=== PATIENT | female | born 1980 | race Caucasian/White ===

== ENCOUNTER 2023-02-10 21:07 | Outpatient (REF) | payer BC, SELFPAY ==
[2023-02-14 10:09] LABS: Age Gdln ACOG Testing Note (.); HPV Aptima Negative (Negative); IGP, Aptima HPV, rfx 16/18,45 Note (.)
== END 2023-02-10 21:08 | disposition home or self-care (01) ==
LOC: LAB 21:07
PROVIDERS: PCP Family Medicine; Visit Provider Obstetrics & Gynecology
DX: Z12.4 Encounter for screening for malignant neoplasm of cervix (principal); Z11.51 Encounter for screening for human papillomavirus (HPV)
CPT/HCPCS: 87624; G0145

== ENCOUNTER 2023-02-15 11:16 | Outpatient (OUT) | payer BC, SELFPAY ==
[2023-02-15 11:41] LABS: Basophils Percent Auto 0.3 % (0.2-2.0); Eosinophils Absolute Auto 0.2 10^3/uL (0.0-0.7); Eosinophils Percent Auto 2.8 % (0.9-7.0); Hematocrit 39.4 % (36.0-48.0); Hemoglobin 13.1 g/dL (12.0-16.0); Immature Granulocytes Abs Auto 0.01 10^3/uL (0.00-0.03); Immature Granulocytes Pct Auto 0.1 % (0.0-0.5); Lymphocytes Absolute Auto 2.6 10^3/uL (1.2-3.8); Lymphocytes Percent Auto 38.2 % (20.5-60.0); Mean Corpuscular HGB Conc 33.2 g/dL (29.9-35.2); Mean Corpuscular Hemoglobin 32.8 pg (26.7-34.0); Mean Corpuscular Volume 98.5 fL (81.0-99.0); Mean Platelet Volume 9.2 fL (9.5-13.5); Monocytes Absolute Auto 0.5 10^3/uL (0.3-0.8); Monocytes Percent Auto 6.8 % (1.7-12.0); Neutrophils Absolute Auto 3.5 10^3/uL (1.4-6.5); Neutrophils Percent Auto 51.8 % (43.0-75.0); Platelet Count 172 10^3/uL (150-450); Red Cell Distribution Width 12.1 % (11.0-15.0); White Blood Count 6.8 10^3/uL (4.0-11.0)
[2023-02-15 12:06] LABS: HCG Quantitative <1 mIU/mL; Thyroid Stimulating Hormone 2.737 uIU/mL (0.358-3.740)
[2023-02-15 12:15] LABS: Partial Thromboplastin Time 27.1 sec (22.3-36.2); Prothrombin Time 9.7 sec (9.0-11.6)
[2023-02-15 12:16] LABS: Estimated Average Glucose 105 mg/dL; Glycohemoglobin A1C 5.3 % (4.5-6.2)
[2023-02-15 12:22] LABS: Free T4 0.87 ng/dL (0.76-1.46)
[2023-02-15 12:43] LABS: INR <0.93
== END 2023-02-15 11:17 | disposition home or self-care (01) ==
LOC: LAB 11:16
PROVIDERS: PCP Family Medicine; Visit Provider Obstetrics & Gynecology
DX: N92.1 Excessive and frequent menstruation with irregular cycle (principal)
CPT/HCPCS: 36415; 83036; 84439; 84443; 84702; 85025; 85610; 85730

== ENCOUNTER 2023-02-24 14:47 | Outpatient (OUT) | payer BC, SELFPAY ==
--- NOTE | 2023-02-24 14:52 | US_ITS ---
The [address] [address] Patient Name: SALBADOR HUNT MRN: [id number] date: 1980 Sex: F Assigned Patient Location: US Current Patient Location: Accession/Order Number: [id number] Exam Date: 02/24/2023 15:05 Report Date: 02/24/2023 15:55 At the request of: JESSIE RODRIGUEZ Procedure: US pelvis w/ transvaginal EXAMINATION: US pelvis w/ transvaginal HISTORY: Menorrhagia With Irregular Cycle N92.1 ; pelvic pain for 6 months COMPARISON: No relevant comparison available. TECHNIQUE: Transabdominal and/or transvaginal sonographic examination was performed as indicated by examination type. FINDINGS: UTERUS: Normal size and appearance. Uterus size: 13.3 x 5.8 x 4.8 cm ENDOMETRIUM: Normal homogeneous appearance. Endometrial thickness: 10 mm RIGHT OVARY: Normal size and appearance. Duplex Doppler demonstrates normal waveform and flow; resistive index 0.6. Ovary size: 2.1 x 2.0 x 1.8 cm LEFT OVARY: Normal size and appearance. Duplex Doppler demonstrates normal waveform and flow; resistive index 0.5. Ovary size: 2.9 x 2.1 x 1.5 cm CUL-DE-SAC: Unremarkable. No significant free fluid. BLADDER: Unremarkable. OTHER: None. US/US pelvis w/ transvaginal IMPRESSION: 1. No abnormal or suspicious findings to account for patient's symptoms. Electronically authenticated by: BRIAN ORTIZ Date: 02/24/2023 15:55
== END 2023-02-24 14:48 | disposition home or self-care (01) ==
LOC: US 14:47
PROVIDERS: PCP Family Medicine; Visit Provider Obstetrics & Gynecology
DX: N92.1 Excessive and frequent menstruation with irregular cycle (principal)
CPT/HCPCS: 76830; 76856

== ENCOUNTER 2023-03-31 14:28 | Outpatient (OUT) | payer BC, SELFPAY | END 2023-03-31 14:29 | disposition home or self-care (01) | PROVIDERS: PCP Family Medicine; Visit Provider Obstetrics & Gynecology | DX: Z01.818 Encounter for other preprocedural examination (principal); N92.1 Excessive and frequent menstruation with irregular cycle; N93.9 Abnormal uterine and vaginal bleeding, unspecified; R10.2 Pelvic and perineal pain ==

== ENCOUNTER 2023-04-11 07:00 | Day surgery (SDC) | payer BC, SELFPAY ==
[2023-03-31 14:45] VITALS: BP 127/84; PULSE 74; RESP 18; TEMP 36.4; O2SAT 98; BMI 31.7
[2023-04-11 07:10] LABS: Basophils Percent Auto 0.3 % (0.2-2.0); Eosinophils Absolute Auto 0.2 10^3/uL (0.0-0.7); Eosinophils Percent Auto 3.2 % (0.9-7.0); Hematocrit 37.9 % (36.0-48.0); Hemoglobin 12.8 g/dL (12.0-16.0); Immature Granulocytes Abs Auto 0.02 10^3/uL (0.00-0.03); Immature Granulocytes Pct Auto 0.3 % (0.0-0.5); Lymphocytes Absolute Auto 2.3 10^3/uL (1.2-3.8); Lymphocytes Percent Auto 32.4 % (20.5-60.0); Mean Corpuscular HGB Conc 33.8 g/dL (29.9-35.2); Mean Corpuscular Hemoglobin 33.2 pg (26.7-34.0); Mean Corpuscular Volume 98.2 fL (81.0-99.0); Mean Platelet Volume 9.1 fL (9.5-13.5); Monocytes Absolute Auto 0.4 10^3/uL (0.3-0.8); Monocytes Percent Auto 5.8 % (1.7-12.0); Neutrophils Absolute Auto 4.2 10^3/uL (1.4-6.5); Platelet Count 188 10^3/uL (150-450); Red Blood Count 3.86 10^6/uL (4.20-5.40); Red Cell Distribution Width 11.8 % (11.0-15.0); White Blood Count 7.2 10^3/uL (4.0-11.0)
[2023-04-11 07:16] VITALS: BMI 30.9
[2023-04-11] MEDS: LACTATED RINGER'S SOLUTION 1,000 ML 50 ML IV (07:24)
[2023-04-11 07:28] LABS: HCG Quantitative <1 mIU/mL
--- NOTE | 2023-04-11 08:58 | PM.ONB ---
Brief Operative Note Date of procedure: 04/11/23 Pre-op diagnosis: menorrhagia Post-op diagnosis: same as pre-op Procedure: NAME OF PROCEDURE:[ beryl endometrial ablation with hysteroscopy] PROCEDURE: The patient was taken back to the OR where she was prepped and draped in the normal sterile fashion after being placed in the dorsal lithotomy position, after being placed under general anesthesia without difficulty. The anterior lip was grasped with a single tooth tenaculum. The patient was then gently sounds. The patient was gently sounded using Hegar dilators and the hysteroscope was passed through the cervix into the uterus where both ostia were seen. No gross evidence of polyps, fibroids or malignancy. A weighted speculum was placed in the patient?s vagina, the anterior tip of the cervix was identified and grasped with a single tooth tenaculum. The patient was gently sounded to roughly 10 cm. The cervical length was noted to be 5 cm. The Beryl ablation apparatus was set to approximately 5 in length. This was placed in through the cervix and into the uterus. After the seal was tested, at that time the total ablation of 120 seconds was performed with the Ebryl without difficulty. All instruments were removed from the vagina. Anesthesia: BARAK Surgeon: Khadar Hope Estimated blood loss (mL): 5 Pathology: none sent Condition: stable Disposition: PACU
[2023-04-11 09:04] VITALS: BP 140/93; PULSE 89; RESP 14; TEMP 36.6; O2SAT 98
[2023-04-11 09:34] VITALS: PULSE 70; RESP 19; O2SAT 97
[2023-04-11 09:35] VITALS: BP 132/82; PULSE 69; RESP 19; O2SAT 98
[2023-04-11 10:03] VITALS: BP 137/74; PULSE 63; RESP 16; O2SAT 96
== END 2023-04-11 10:04 | disposition home or self-care (01) ==
PROVIDERS: PCP Family Medicine; Visit Provider Obstetrics & Gynecology
PROC: (CPT 58563; principal; 2023-04-11 08:20)
DX: N92.1 Excessive and frequent menstruation with irregular cycle (principal); N93.9 Abnormal uterine and vaginal bleeding, unspecified; R10.2 Pelvic and perineal pain; F32.A Depression, unspecified; Z98.51 Tubal ligation status
CPT/HCPCS: 58563; 36415; 84702; 85025; J2704

== ENCOUNTER 2023-07-07 14:07 | Outpatient (OUT) | payer BC, SELFPAY ==
--- NOTE | 2023-07-07 14:39 | XR_ITS ---
The [address] [address] Patient Name: SALBADOR HUNT MRN: [id number] date: 1980 Sex: F Assigned Patient Location: [facility] Current Patient Location: [facility] Accession/Order Number: [id number] Exam Date: 07/07/2023 14:30 Report Date: 07/07/2023 16:11 At the request of: BENNETT VENTURA Procedure: XR chest 2V EXAM: XR chest 2V HISTORY: Acute Bronchiolitis J21.9 COMPARISON: None TECHNIQUE: PA and lateral views of the chest were obtained. FINDINGS: No definite acute fracture or dislocation is seen. No significant focal osseous or articular abnormalities are identified. No obvious pneumothorax. Mild apical pleural thickening bilaterally. Minimal degenerative changes in the dorsal spine. XR/XR chest 2V IMPRESSION: No acute process seen in the chest. Electronically authenticated by: MORRIS GALEANO Date: 07/07/2023 16:11
== END 2023-07-07 14:08 | disposition home or self-care (01) ==
LOC: RAD 14:08
PROVIDERS: PCP Family Medicine; Visit Provider Family Medicine
DX: J21.9 Acute bronchiolitis, unspecified (principal)
CPT/HCPCS: 71046

== ENCOUNTER 2024-11-23 10:45 | Outpatient (OUT) | payer BC, SELFPAY ==
[2024-11-23 11:14] LABS: Basophils Percent Auto 0.3 % (0.2-2.0); Eosinophils Absolute Auto 0.2 10^3/uL (0.0-0.7); Eosinophils Percent Auto 2.3 % (0.9-7.0); Hematocrit 42.6 % (36.0-48.0); Immature Granulocytes Abs Auto 0.01 10^3/uL (0.00-0.03); Immature Granulocytes Pct Auto 0.1 % (0.0-0.5); Lymphocytes Absolute Auto 1.9 10^3/uL (1.2-3.8); Lymphocytes Percent Auto 26.2 % (20.5-60.0); Mean Corpuscular HGB Conc 32.9 g/dL (29.9-35.2); Mean Corpuscular Hemoglobin 32.6 pg (26.7-34.0); Mean Corpuscular Volume 99.1 fL (81.0-99.0); Mean Platelet Volume 9.4 fL (9.5-13.5); Monocytes Absolute Auto 0.4 10^3/uL (0.3-0.8); Monocytes Percent Auto 5.1 % (1.7-12.0); Neutrophils Absolute Auto 4.9 10^3/uL (1.4-6.5); Platelet Count 207 10^3/uL (150-450); Red Cell Distribution Width 12.2 % (11.0-15.0); White Blood Count 7.4 10^3/uL (4.0-11.0)
[2024-11-23 11:28] LABS: INR 0.96; Partial Thromboplastin Time 25.9 sec (22.3-36.2); Prothrombin Time 10.2 sec (9.0-11.6)
[2024-11-23 11:36] LABS: Estimated Average Glucose 114 mg/dL; Glycohemoglobin A1C 5.6 % (4.5-6.2)
[2024-11-23 11:43] LABS: HCG Quantitative <1 mIU/mL; Thyroid Stimulating Hormone 3.037 uIU/mL (0.358-3.740)
[2024-11-23 11:51] LABS: Free T4 1.03 ng/dL (0.76-1.46)
== END 2024-11-23 10:46 | disposition home or self-care (01) ==
LOC: LAB 10:52
PROVIDERS: PCP Family Medicine; Visit Provider Obstetrics & Gynecology
DX: N92.0 Excessive and frequent menstruation with regular cycle (principal)
CPT/HCPCS: 36415; 83036; 84439; 84443; 84702; 85025; 85610; 85730

== ENCOUNTER 2024-12-11 08:59 | Outpatient (OUT) | payer BC, SELFPAY ==
--- OUTSIDE RECORDS SUMMARY | 2024-12-11 09:01 | XMS_ITS | CCD ---
Author Organization [facility] Care Team Providers Care Change Management Administrator Name Role Phone Jody Carey Unavailable ANGEL, DR HARVEY Lloyd Consulting Unavailable LARS ., CASEY Admitting Unavailable LARS ., CASEY Attending Unavailable HOY ., DR GUAJARDO Primary Care Unavailable LARS ., CASEY Consulting Unavailable HOY ., DR GUAJARDO Admitting Unavailable HOY ., DR GUAJARDO Attending Unavailable HOY ., DR GUAJARDO Consulting Unavailable HOY ., DR GUAJARDO Primary Care Unavailable HERMINIA ., DR ROMNA Admitting Unavailable HERMINIA ., DR ROMAN Attending Unavailable HOY ., DR GUAJARDO Consulting Unavailable HOY ., DR GUAJARDO Primary Care Unavailable HERMINIA ., DR ROMAN Consulting Unavailable ZIEBER, DR HARVEY Lloyd Consulting Unavailable KARASIK ., DR LOWERY Attending Unavailabl e KARASIK ., DR LOWERY Consulting Unavailabl e KARASIK ., DR LOWERY Admitting Unavailabl e HOY ., DR GUAJARDO Primary Care Unavailable HOY ., DR GUAJARDO Admitting Unavailable HOY ., DR GUAJARDO Attending Unavailable HOY ., DR GUAJARDO Consulting Unavailable HOY ., DR GUAJARDO Primary Care Unavailable Monoy Bennett PRESTON Primary Care Provider [phone] JESSIE HOPE Attending Unavailable Medications Current Medications Medication Drug Class(es) Dates Sig (Normalized) Sig (Original) [id number] 200 actuat albuterol 0.09 mg/actuat metered dose inhaler (4 sources) beta2-Adrenergic Agonist Start: 05-25-2024 take 2 puff(s) by mouth every four hours albuterol HFA 90 mcg/act inhaler INHALE 2 PUFFS BY MOUTH EVERY 4 HOURS FOR 14 DAYS 05/25/2024 Active Start: 05-25-2024 take 1 puff(s) by in halation every four hours Albuterol Sulfate Active 2 PUFF INHALATION Q4H 1 May 25, 2024 12:00am Azithromycin (1 source) Macrolide Antimicrobial Start: 05-25-2024 Azithromycin Active 0 PO .COMPLEX May 25, 2024 12:00am For 250 mg dose pack: take 500 mg today (day 1), then 250 mg for 4 days (days 2-5) PO benzonatate 100 mg oral capsule (1 source) Non-narcotic Antitussive Start: 05-25-2024 take 100 mg by mouth three times daily Benzonatate Active 100 MG PO Three times daily 21 May 25, 2024 12:00am methylPREDNISolone 4 mg oral tablet (1 source) Corticosteroid Start: 05-25-2024 take 1 tablet by mouth once Methylprednisolone (Medrol (Montrell)) 4 mg tablets,dose pack Active 0 PO per package directions May 25, 2024 12:00am PO PER PKG DIR for 6 days Completed/Discontinued Medications Medication Drug Class(es) Dates Sig (Normalized) Sig (Original) citalopram 10 mg oral tablet (2 sources) Serotonin Reuptake Inhibitor End: 11-17-2024 citalopram (CeleXA) 10 MG tablet 1 (one) time each day at the same time. 11/17/2024 Discontinued levoFLOXacin 500 mg oral tablet (2 sources) Quinolone Antimicrobial Start: 04-22-2022 End: 11-17-2024 take 1 tablet by mouth in the morning levoFLOXacin (Levaquin) 500 MG tablet Take 1 tablet by mouth in the morning. 04/22/2022 11/17/2024 Discontinued Problems Active Problems Problem Classification Problem Date Documented Date Episodic/Chronic Influenza (1 source) Influenza due to other identified influenza virus with other respiratory manifestations Episodic Menstrual disorders (6 sources) Menometrorrhagia; Translations: [Excessive and frequent menstruation with irregular cycle] 11-23-2024 Chronic Other endocrine disorders (2 sources) Disorder of endocrine system; Translations: [Endocrine disorder, unspecified] 11-23-2024 Episodic Unclassified (3 sources) CONTACT W/AND (SUSP) EXPOS COVID-19; Translations: [CONTACT W/AND (SUSP) EXPOS COVID-19] Onset: 04-23-2022 Past or Other Problems Problem Classification Problem Date Documented Date Episodic/Chronic Immunizations and screening for infectious disease (3 sources) Contact with and (suspected) exposure to other viral communicable diseases; Translations: [Encounter for screening for human papillomavirus (HPV)] Onset: 02-08-2022 Episodic Nonmalignant breast conditions (5 sources) Mastodynia; Translations: [MASTODYNIA] Onset: 08-29-2022 Episodic Other screening for suspected conditions (not mental disorders or infectious disease) (8 sources) Encounter for screening for malignant neoplasm of cervix; Translations: [Encounter for screening mammogram for malignant neoplasm of breast] Onset: 01-24-2022 Episodic Other upper respiratory infections (1 source) Acute recurrent frontal sinusitis; Translations: [ACUTE RECURRENT FRONTAL SINUSITIS] Onset: 04-23-2022 Episodic Residual codes; unclassified (1 source) Family history of malignant neoplasm of digestive organs; Translations: [FAM HX MALIG NEOPLASM DIGESTIV ORGN] Onset: 01-29-2022 Episodic Unclassified (1 source) CONTACT W/AND (SUSP) EXPOS COVID-19; Translations: [CONTACT W/AND (SUSP) EXPOS COVID-19] Onset: 04-22-2022 Viral infection (4 sources) Plantar wart of right foot; Translations: [Plantar wart] Onset: 02-05-2023 02-05-2023 Episodic Results Test Name Value Interpretation Reference Range Facility ALL CBC WITH AUTO DIFFon BASOPHILS ABSOLUTE AUTO 0 [facility] Basophils/100 WBC (Bld) 0.3 % 0.2 - 2.0 % [facility] Eosinophils/100 WBC (Bld) 2.3 % 0.9 - 7.0 % [facility] Erythrocyte distribution width (RBC) [Ratio] 12.2 % 11.0 - 15.0 % [facility] Hematocrit (Bld) [Volume fraction] 42.6 % 36.0 - 48.0 % [facility] Hem[facility] (Bld) [Mass/Vol] 14 g/dL 12.0 - 16.0 g/dL [facility] IMMATURE GRANULOCYTES ABS AUTO 0.01 [facility] Immature granulocytes/100 WBC (Bld) 0.1 % 0.0 - 0.5 % [facility] Interpretation and review of laboratory results Abnormal [facility] LYMPHOCYTES ABSOLUTE AUTO 1.9 [facility] Lymphocytes/100 WBC (Bld) 26.2 % 20.5 - 60.0 % [facility] MCH (RBC) [Entitic mass] 32.6 pg 26.7 - 34.0 pg [facility] MCHC (RBC) [Mass/Vol] 32.9 g/dL 29.9 - 35.2 g/dL [facility] MCV (RBC) [Entitic vol] 99.1 fL High 81.0 - 99.0 fL [facility] MONOCYTES ABSOLUTE AUTO 0.4 [facility] Monocytes/100 WBC (Bld) 5.1 % 1.7 - 12.0 % [facility] NEUTROPHILS ABSOLUTE AUTO 4.9 [facility] Neutrophils/100 WBC (Bld) 66 % 43.0 - 75.0 % [facility] Platelet mean volume (Bld) [Entitic vol] 9.4 fL Low 9.5 - 13.5 fL [facility] EO # 0.2 [facility] Health[facility] e TB PLT [address] [facility] e TB RBC 4.3 [facility] WBC 7.4 [facility] Urinalysis macro (dipstick) panel (U)on 11-23-2024 Bilirubin, UA Negative Negative - 4(70) +++ mg/dL [facility] Blood, UA Positive Negative - 50 Marvin/mcL [facility] Comment on above: moderate Clarity, UA Clear [facility] re Color, UA Yellow [facility] e Glucose, UA Negative Negative - 1999(110) ++++ mg/dL [facility] Interpretation and review of laboratory results Abnormal [facility] Ketones, UA Negative Negative - 160(16) ++++ mg/dL [facility] Leukocytes, UA Negative Negative - 500+++ Nilo/mcL [facility] Nitrite, UA Negative Negative - Positive [facility] pH, UA 5.5 5 - 9 [facility] e Protein, UA Trace Negative - 1999(20) ++++ mg/dL [facility] Spec Grav, UA 1.03 1 - 1.03 [facility] Urobilinogen, UA 0.2 0.2 - 12 mg/dL [facility] Cytology Cervical or vaginal smear or scraping studyOrdered By: Cathleen Dubon on 03-14-2023 [facility] Healthcar e CBC AUTO DIFFon 08-29-2022 BASO # 0.0 103/ul Normal 0.0-0.1 [facility] Comment on above: Performed By: #### C BC ####[facility] By[address] [place], [place] [address]Dr. Manuel Fair Basophils/100 WBC (Bld) 0.2 % Normal 0.2-2.0 [facility] Comment on above: Performed By: #### C BC ####[facility] [address] [place], [place] [address]Dr. Manuel Fair EO # 0.2 103/ul Normal 0.0-0.7 [facility] Comment on above: Performed By: #### C BC ####[facility] [address] [place], [place] [address]Dr. Manuel Fair Eosinophils/100 WBC (Bld) 2.9 % Normal 0.9-7.0 [facility] Comment on above: Performed By: #### C BC ####[facility] [address] [place], [place] [address]Dr. Manuel Fair Erythrocyte distribution width (RBC) [Ratio] 12.2 % Normal 11.0-15.0 [facility] Comment on above: Performed By: #### C BC ####[facility] [address] [place], [place] [address]Dr. Manuel Fair Hematocrit (Bld) [Volume fraction] 44.2 % Normal 36.0-48.0 [facility] Comment on above: Performed By: #### C BC ####[facility] [address] [place], [place] [address]Dr. Manuel Fair Hemoglobin (Bld) [Mass/Vol] 13.2 g/dL Normal 12.0-16.0 [facility] Comment on above: Performed By: #### C BC ####[facility] [address] [place], [place] [address]Dr. Manuel Fair IG # 0.01 10e3/ul Normal 0.00-0.03 [facility] Comment on above: Performed By: #### C BC ####[facility] [address] [place], [place] [address]DrAugustus Fair IG % 0.2 % Normal 0.0-0.5 [facility] Comment on above: Performed By: #### C BC ####[facility] [address] [place] [address]DrAugustus Fair LYMPH # 2.1 103/ul Normal 1.2-3.8 [facility] Comment on above: Performed By: #### C BC ####[facility] [address] [place] [address]DrAugustus Fair Lymphocytes/100 WBC (Bld) 33.7 % Normal 20.5-60.0 [facility] Comment on above: Performed By: #### C BC ####[facility] [address] [place], [place] [address]DrAugustus Fair MANUAL DIFF REQ NO Normal [facility] Comment on above: Performed By: #### C BC ####[facility] [address] [place], [place] [address]DrAugustus Fair MCH (RBC) [Entitic mass] 32.1 pg Normal 26.7-34.0 [facility] Comment on above: Performed By: #### C BC ####[facility] [address] [place], [place] [address]DrAugustus Fair MCHC (RBC) [Mass/Vol] 29.9 g/dL Normal 29.9-35.2 [facility] Comment on above: Performed By: #### C BC ####[facility] [address] [place], [place] [address]DrAugustus Fair MCV (RBC) [Entitic vol] 107.5 fL Critically high 81.0-99.0 [facility] Comment on above: Performed By: #### C BC ####[facility] [address] [place], [place] [id number] Fair MONO # 0.3 103/ul Normal 0.3-0.8 [facility] Comment on above: Performed By: #### C BC ####[facility] [address] [place], [place] [address]DrAugustus Fair Monocytes/100 WBC (Bld) 5.2 % Normal 1.7-12.0 [facility] Comment on above: Performed By: #### C BC ####[facility] [address] [place] [id number]. Manuel Fair NEUT # 3.5 103/ul Normal 1.4-6.5 [facility] Comment on above: Performed By: #### C BC ####[facility] [address] [place] [id number] Fair Neutrophils/100 WBC (Bld) 57.8 % Normal 43.0-75.0 [facility] Comment on above: Performed By: #### C BC ####[facility] [address] [place] [id number]. Manuel Fair Platelet mean volume (Bld) [Entitic vol] 9.8 fL Normal 9.5-13.5 [facility] Comment on above: Performed By: #### C BC ####[facility] [address] [place] [id number] Fair PLT 214 103/ul Normal 150-450 [facility] Comment on above: Performed By: #### C BC ####[facility] [address] [place] [id number]. Manuel Fair RBC 4.11 106/ul Critically low 4.20-5.40 [facility] Comment on above: Performed By: #### C BC ####[facility] [address] [place] [id number] Fair WBC 6.1 103/ul Normal 4.0-11.0 [facility] Comment on above: Performed By: #### C BC ####[facility] [address] [place] [id number]. Manuel Fair FREE THYROXINE INDEX T7on FTI 2.56 Normal 1.30-4.50 [facility] Comment on above: Performed By: #### T 7, TSH, LIPID, CMP #### [facility] [address], [place] [address] Dr. Manuel Fair T3U 36.0 % Normal 30.0-39.0 [facility] Comment on above: Performed By: #### T 7, TSH, LIPID, CMP #### [facility] [address] [place] [address] [address] Manuel Fair T4 [Mass/Vol] 7.10 ug/dL Normal 4.80-13.90 [facility] Comment on above: Performed By: #### T 7, TSH, LIPID, CMP #### [facility] [address] [place] [address] [address] Manuel Fair GLYCOHEMOGLOBIN A1Con 2022 ADA RECOMMENDATION SEE BELOW Normal [facility] Comment on above: Result Comment: ADA RECOMMENDED LIMIT 4.0 - 6.0 ADA THERAPEUTIC TARGET < 7.0 ACTION SUGGESTED > 7.0 Performed By: #### A 1C #### [facility] [address] [place] [address] Dr. Manuel Fair Glucose [Mass/Vol] 111 mg/dL Normal [facility] Comment on above: Performed By: #### A 1C #### [facility] [address] [place] [address] Dr. Manuel Fair HbA1c (Bld) [Mass fraction] 5.5 % Normal 4.5-6.2 [facility] Comment on above: Performed By: #### A 1C #### [facility] [address] [place] [address] Dr. Manuel Fair LIPID PROFILEon 08-29-2022 CHOL-HDL RATIO NORM SEE BELOW Normal [facility] Comment on above: Result Comment: 3.3 - 4.4 LOW RISK 4.4 - 7.1 AVERAGE RISK 7.1 - 11.0 MODERATE RISK >11.0 HIGH RISK Performed By: #### T 7, TSH, LIPID, CMP #### [facility] [address] [place] [address] Dr. Manuel Fair Cholesterol [Mass/Vol] 183 mg/dL Normal <=200 [facility] Comment on above: Performed By: #### T 7, TSH, LIPID, CMP #### [facility] [address] [place] [address] Dr. Manuel Fair Cholesterol in HDL [Mass/Vol] 44 mg/dL Normal 40-60 [facility] Comment on above: Performed By: #### T 7, TSH, LIPID, CMP #### [facility] [address] [place] [address] [address] Manuel Fair Cholesterol in LDL [Mass/Vol] 111.2 mg/dL Normal [facility] Comment on above: Performed By: #### T 7, TSH, LIPID, CMP #### [facility] [address] [place] [address] [address] Manuel Fair Cholesterol.total/Ch olesterol in HDL [Mass ratio] 4.2 {ratio} Normal [facility] Comment on above: Performed By: #### T 7, TSH, LIPID, CMP #### [facility] [address] [place] [address] Dr. Manuel Fair HDL NORMAL > or = 60 mg/dl - LOW CARDIOVASCULAR RISK <40 mg/dl - HIGH CARDIOVASCULAR RISK Normal [facility] Comment on above: Performed By: #### T 7, TSH, LIPID, CMP #### [facility] [address] [place] [address] Dr. Manuel Fair LDL CALC NORMAL SEE BELOW Normal [facility] Comment on above: Result Comment: <100 mg/dl OPTIMAL 100 - 129 mg/dl NEAR OR ABOVE OPTIMAL 130 - 159 mg/dl BORDERLINE HIGH 160 - 189 mg/dl HIGH >190 mg/dl VERY HIGH Performed By: #### T 7, TSH, LIPID, CMP #### [facility] [address] [place] [address] [address] Manuel Fair Triglyceride [Mass/Vol] 139 mg/dL Normal <=150 [facility] Comment on above: Performed By: #### T 7, TSH, LIPID, CMP #### [facility] [address] [place] [address] Dr. Manuel Fair VLDL CALC 27.8 mg/dL Normal [facility] Comment on above: Performed By: #### T 7, TSH, LIPID, CMP #### [facility] [address] [place] [address] Dr. Manuel Fair MG MAMM [place] DIAG W CADon MG MAMM [place] DIAG W CAD Patient: KEYLA KEITH Exam Date: 08/29/2022 : 1980 Gender:F Ordering : PRERNA SOUSA . Admission #: [id number] Family : DR JESSIE HOPE . Order #: [id number] CLICK HERE TO VIEW EXAM RADIOLOGY REPORT PROCEDURE: MAMMOGRAM BILATERAL DIAGNOSTIC DIGITAL WITH COMPUTER AIDED DETECTION, 08/29/2022, 09:22 ULTRASOUND BREAST LEFT LIMITED, 08/29/2022, 09:58 COMPARISON: MG MAMM SCREEN 3D [place] CAD, 01/24/2022. INDICATIONS: Pain of breast Calculator Name NCI Breast Cancer Risk Assessment Tool 5 Year Breast Cancer Risk 0.80% Lifetime Breast Cancer Risk 13.60% Personal Breast Cancer No Personal Ovarian Cancer No Treatments None Family Cancers Mother with colon cancer at age 62. LOCATION: [facility] BREAST COMPOSITION: Heterogeneously dense,which may obscure small masses. FINDINGS: DIAGNOSTIC CATEGORY 2--BENIGN FINDING: RIGHT BREAST: No significant suspicious finding. No significant change has occurred. LEFT BREAST: No significant suspicious finding. Scattered benign-appearing lymph nodes are present. No significant change has occurred. Ultrasound evaluation demonstrates normal appearing fibroglandular tissue in area of patient's palpable lump. No suspicious findings. RECOMMENDATIONS: ROUTINE MAMMOGRAM AND CLINICAL EVALUATION IN 12 MONTHS. PLEASE NOTE: A NORMAL MAMMOGRAM DOES NOT EXCLUDE THE POSSIBILITY OF BREAST CANCER. A CLINICALLY SUSPICIOUS PALPABLE LUMP SHOULD BE BIOPSIED. Dictated by: Harvey Marte M.D. on 08/29/2022 at 10:17 Approved by: Harvey Marte M.D. on 08/29/2022 at 10:34 Normal [facility] PROF 14(COMP METB)on 023 Albumin [Mass/Vol] 3.7 g/dL Normal 3.4-5.0 [facility] Comment on above: Performed By: #### T 7, TSH, LIPID, CMP #### [facility] [address] [place] [address] [address] Manuel Fair Albumin/Globulin [Mass ratio] 1.1 {ratio} Normal [facility] Comment on above: Performed By: #### T 7, TSH, LIPID, CMP #### [facility] [address] [place] [address] [address] Manuel Fair ALP [Catalytic activity/Vol] 73 U/L Normal 46-116 [facility] Comment on above: Performed By: #### T 7, TSH, LIPID, CMP #### [facility] [address] [place] [address] [address] Manuel Fair ALT [Catalytic activity/Vol] 21 U/L Normal 14-59 [facility] Comment on above: Performed By: #### T 7, TSH, LIPID, CMP #### [facility] [address] [place] [address] [address] Manuel Fair Anion gap [Moles/Vol] 11.1 mmol/L Normal [facility] Comment on above: Performed By: #### T 7, TSH, LIPID, CMP #### [facility] [address] [place] [address] Dr. Manuel Fair AST [Catalytic activity/Vol] 15 U/L Normal 15-37 [facility] Comment on above: Performed By: #### T 7, TSH, LIPID, CMP #### [facility] [address] [place] [address] [address] Manuel Fair Bilirubin [Mass/Vol] 0.4 mg/dL Normal 0.2-1.0 [facility] Comment on above: Performed By: #### T 7, TSH, LIPID, CMP #### [facility] [address] [place] [address] Dr. Manuel Fair Calcium [Mass/Vol] 8.9 mg/dL Normal 8.5-10.1 [facility] Comment on above: Performed By: #### T 7, TSH, LIPID, CMP #### [facility] [address] [place] [address] Dr. Manuel Fair Chloride [Moles/Vol] 103 mmol/L Normal 98-107 [facility] Comment on above: Performed By: #### T 7, TSH, LIPID, CMP #### [facility] [address] [place] [address] Dr. Manuel Fair CO2 [Moles/Vol] 29.8 mmol/L Normal 21.0-32.0 [facility] Comment on above: Performed By: #### T 7, TSH, LIPID, CMP #### [facility] [address] [place] [address] [address] Manuel Fair Creatinine [Mass/Vol] 0.60 mg/dL Normal 0.55-1.02 [facility] Comment on above: Performed By: #### T 7, TSH, LIPID, CMP #### [facility] [address] [place] [address] Dr. Manuel Fair EGFR-AF TAIWANESE >60 Normal >=[address] [facility] Comment on above: Performed By: #### T 7, TSH, LIPID, CMP #### [facility] [address] [place] [address] Dr. Manuel Fair EGFR-NON AF TAIWANESE >60 Normal >=60 [facility] Comment on above: Performed By: #### T 7, TSH, LIPID, CMP #### [facility] [address] [place] [address] Dr. Manuel Fair Globulin (S) [Mass/Vol] 3.3 g/dL Normal [facility] Comment on above: Performed By: #### T 7, TSH, LIPID, CMP #### [facility] [address] [place] [address] Dr. Manuel Fair Glucose [Mass/Vol] 91 mg/dL Normal 74-106 [facility] Comment on above: Performed By: #### T 7, TSH, LIPID, CMP #### [facility] [address] [place] [address] Dr. Manuel Fair Potassium [Moles/Vol] 3.9 mmol/L Normal 3.5-5.1 [facility] Comment on above: Performed By: #### T 7, TSH, LIPID, CMP #### [facility] [address] [place] [address] Dr. Manuel Fair Protein [Mass/Vol] 7.0 g/dL Normal 6.4-8.2 [facility] Comment on above: Performed By: #### T 7, TSH, LIPID, CMP #### [facility] [address] [place] [address] Dr. Manuel Fair Sodium [Moles/Vol] 140 mmol/L Normal 136-145 [facility] Comment on above: Performed By: #### T 7, TSH, LIPID, CMP #### [facility] [address] [address] [address] Manuel Fair Urea nitrogen [Mass/Vol] 9.0 mg/dL Normal 7.0-18.0 [facility] Comment on above: Performed By: #### T 7, TSH, LIPID, CMP #### [facility] [address] [place] [address] [address] Manuel Fair Urea nitrogen/Creatinine [Mass ratio] 15.0 mg/mg Normal [facility] Comment on above: Performed By: #### T 7, TSH, LIPID, CMP #### [facility] [address] [place] [address] [address] Manuel Fair TSHon 08-29-2022 TSH 2.065 uIU/mL Normal 0.358-3.740 [facility] Comment on above: Performed By: #### T 7, TSH, LIPID, CMP #### [facility] [address] [place] [address] [address] Manuel Fair US BREAST LEFT LIMITEDon US BREAST LEFT LIMITED Patient: KEYLA KEITH Exam Date: 08/29/2022 : 1980 Gender:F Ordering : PRERNA SOUSA . Admission #: [id number] Family : DR JESSIE HOPE . Order #: [id number] CLICK HERE TO VIEW EXAM RADIOLOGY REPORT PROCEDURE: MAMMOGRAM BILATERAL DIAGNOSTIC DIGITAL WITH COMPUTER AIDED DETECTION, 08/29/2022, 09:22 ULTRASOUND BREAST LEFT LIMITED, 08/29/2022, 09:58 COMPARISON: MG MAMM SCREEN 3D [place] CAD, 01/24/2022. INDICATIONS: Pain of breast Calculator Name NCI Breast Cancer Risk Assessment Tool 5 Year Breast Cancer Risk 0.80% Lifetime Breast Cancer Risk 13.60% Personal Breast Cancer No Personal Ovarian Cancer No Treatments None Family Cancers Mother with colon cancer at age 62. LOCATION: [facility] BREAST COMPOSITION: Heterogeneously dense,which may obscure small masses. FINDINGS: DIAGNOSTIC CATEGORY 2--BENIGN FINDING: RIGHT BREAST: No significant suspicious finding. No significant change has occurred. LEFT BREAST: No significant suspicious finding. Scattered benign-appearing lymph nodes are present. No significant change has occurred. Ultrasound evaluation demonstrates normal appearing fibroglandular tissue in area of patient's palpable lump. No suspicious findings. RECOMMENDATIONS: ROUTINE MAMMOGRAM AND CLINICAL EVALUATION IN 12 MONTHS. PLEASE NOTE: A NORMAL MAMMOGRAM DOES NOT EXCLUDE THE POSSIBILITY OF BREAST CANCER. A CLINICALLY SUSPICIOUS PALPABLE LUMP SHOULD BE BIOPSIED. Dictated by: Harvey Marte M.D. on 08/29/2022 at 10:17 Approved by: Harvey Marte M.D. on 08/29/2022 at 10:34 Normal [facility] COVID/FLU/RSV RT-PCRon 07-31 SARS-CoV-2 (COVID-19) RNA WAYNE+probe Ql (Unsp spec) Negative [facility] Other COVID/FLU/RSV RT-PCR Positive [facility] Other COVID/FLU/RSV RT-PCR Negative [facility] Other [facility]on 04[facility]04 SARS-CoV-2 (COVID-19) RNA WAYNE+probe Ql (Unsp spec) Not detected Normal NOT DETECTED [facility] Comment on above: Result Comment: This test is not yet approved or cleared by the [place] FDA. When there are no FDA-approved or cleared tests available, and other criteria are met, FDA can make tests available under an emergency access mechanism called an Emergency Use Authorization (EUA). The EUA for this test is supported by the [place] of Health and Human Service's (HHS's) declaration that circumstances exist to justify the emergency use of in vitro diagnostics for the detection and/or diagnosis of the virus that causes COVID-19. This EUA will remain in effect (meaning this test can be used) for the duration of the COVID-19 declaration justifying emergency of IVDs, unless it is terminated or revoked by FDA (after which the test may no longer be used). When diagnostic testing is negative, the possibility of a false negative should be considered in the context of a patient's recent exposures and the presence of clinical signs and symptoms consistent with SARS-CoV-2. Performed By: #### C VDTBH #### [facility] [address] [place] [address] Dr. Manuel Fair PAP ACOG PANEL 2: 30 to 65on 02-09-2022 . . Normal [facility] Comment on above: Result Comment: Perf ormed at: WB Performed By: #### [id number] #### [facility] [address] [place] [address] Dr. Manuel Fair Age Gdln ACOG Testing 30-65 [facility] Comment on above: Performed By: #### [id number] #### [facility] [address] [place] [address] Dr. Manuel Fair DIAGNOSIS: Comment Normal [facility] Comment on above: Result Comment: NEGA TIVE FOR INTRAEPITHELIAL LESION OR MALIGNANCY. Performed at: WB Performed By: #### [id number] #### [facility] [address] [place] [address] Dr. Manuel Fair HPV Aptima Negative Normal Negative [facility] Comment on above: Result Comment: This nucleic acid amplification test detects fourteen high-risk HPV types (16,18,31,33,35,39,45,51,52,56,58,59,66,68) without differentiation. Performed at: =G Performed By: #### [id number] #### [facility] [address] [place] [address] Dr. Manuel Fair Methodology: Comment [facility] Comment on above: Result Comment: This liquid based ThinPrep(R) pap test was screened with the use of an image guided system. Performed at: WB Performed By: #### [id number] #### [facility] [address] [place] [address] Dr. Manuel Fair Note: Comment [facility] Comment on above: Result Comment: The Pap smear is a screening test designed to aid in the detection of premalignant and malignant conditions of the uterine cervix. It is not a diagnostic procedure and should not be used as the sole means of detecting cervical cancer. Both false-positive and false-negative reports do occur. . Performed at: WB Performed By: #### [id number] #### [facility] [address] [address] [address] Manuel Fair Performed by: Comment Normal [facility] Comment on above: Result Comment: Michael Armendariz, Brine Mixer Operator (ASCP) Performed at: WB Performed By: #### [id number] #### [facility] [address] [address] [address] Manuel Fair Specimen adequacy: Comment Normal [facility] Comment on above: Result Comment: Sati sfactory for evaluation. No endocervical component is identified. Performed at: WB Performed By: #### [id number] #### [facility] [address] [place] [address] Dr. Manuel Fair MG MAMM SCREEN 3D [place] CADon 01-24-2022 MG MAMM SCREEN 3D [place] CAD Patient: KEYLA KEITH Exam Date: 01/24/2022 : 1980 Gender:F Ordering : DR JESSIE HOPE . Admission #: [id number] Family : DR BENNETT DUQUE . Order #: [id number] CLICK HERE TO VIEW EXAM RADIOLOGY REPORT PROCEDURE: MAMMOGRAM SCREENING 3D BILATERAL CAD COMPARISON: None. INDICATIONS: Screening mammography Calculator Name NCI Breast Cancer Risk Assessment Tool 5 Year Breast Cancer Risk 0.80% Lifetime Breast Cancer Risk 13.60% Personal Breast Cancer No Personal Ovarian Cancer No Treatments None Family Cancers Mother with colon cancer at age 62. LOCATION: [facility] BREAST COMPOSITION: Heterogeneously dense,which may obscure small masses. FINDINGS: DIAGNOSTIC CATEGORY 2--BENIGN FINDING: RIGHT BREAST: No significant suspicious finding. LEFT BREAST: No significant suspicious finding. Scattered benign-appearing lymph nodes are present. RECOMMENDATIONS: ROUTINE MAMMOGRAM AND CLINICAL EVALUATION IN 12 MONTHS. PLEASE NOTE: A NORMAL MAMMOGRAM DOES NOT EXCLUDE THE POSSIBILITY OF BREAST CANCER. A CLINICALLY SUSPICIOUS PALPABLE LUMP SHOULD BE BIOPSIED. Dictated by: Harvey Marte M.D. on 01/25/2022 at 13:54 Approved by: Harvey Marte M.D. on 01/25/2022 at 13:56 [facility] Vital Signs Date Time Vital Sign Value Performing Clinician Facility 11-23-2024 09:31-0400 Body mass index (BMI) [Ratio] 32.11 kg/m2 Jessie Herminia DO Work Phone: [facility] 11-23-2024 09:31-0400 Body weight 92.99 kg Jessie Herminia DO Work Phone: [facility] 11-23-2024 09:31-0400 Diastolic blood pressure 78 mm[Hg] Jessie Herminia DO Work Phone: [facility] 11-23-2024 09:31-0400 Systolic blood pressure 122 mm[Hg] Jessie Herminia DO Work Phone: [facility] 05-25-2024 11:52-0400 Body height 170.[address] [facility] 05-25-2024 11:52-0400 Body mass index (BMI) [Ratio] 32.4 kg/m2 [facility] 05-25-2024 11:52-0400 Body temperature 97.5 [degF] [facility] 05-25-2024 11:52-0400 Body weight 93.[address] [facility] 05-25-2024 11:52-0400 Diastolic blood pressure 83 mm[Hg] [facility] 05-25-2024 11:52-0400 Heart rate 91 /min [facility] 05-25-2024 11:52-0400 Respiratory rate 18 /min [facility] 05-25-2024 11:52-0400 SaO2% (BldA) [Mass fraction] 98 % [facility] 05-25-2024 11:52-0400 Systolic blood pressure 134 mm[Hg] [facility] 07-31-2022 12:15-0500 Body height 167.64 cm Jody Carey Other [facility] Other 07-31-2022 12:15-0500 Body mass index (BMI) [Ratio] 32.28 kg/m2 Jody Carey Other [facility] Other 07-31-2022 12:15-0500 Body temperature 97.3 [degF] Jody Carey Other [facility] Other 07-31-2022 12:15-0500 Body weight 90.72 kg Jody Carey Other [facility] Other 07-31-2022 12:15-0500 Respiratory rate 18 /min Jody Carey Other [facility] Other 07-31-2022 12:15-0500 SaO2% (BldA) [Mass fraction] 98 % Jody Carey Other [facility] Other Encounters Encounter Date Encounter Type Care Provider Facility Start: 11-23-2024 End: 11-23-2024 Bamboo flowsheet Jessie Herminia DO Work Phone: [facility] Start: 11-23-2024 End: 11-23-2024 Bamboo flowsheet Jessie Herminia DO Work Phone: [facility] Start: 11-23-2024 End: 11-23-2024 Clinisync Result Encounter Jessie Herminia DO Work Phone: [facility] External Department Unsolicited Start: 11-23-2024 End: 11-23-2024 Office outpatient visit 15 minutes Jessie Herminia DO Work Phone: [facility] Comment on above: Menorrhagia with irr egular cycle; Spotting; Hormone imbalance; Menorrhagia with regular cycle Start: 11-23-2024 End: 11-23-2024 ambulatory JESSIE HERMINIA Not Available Start: 05-25-2024 End: 05-25-[address] [facility] Work Phone: Start: 05-25-2024 End: 05-25-2024 Patient encounter procedure [facility] Work Phone: Start: 08-30-2022 Encounter for genera l adult medical examination without abnormal findings DR BENNETT DUQUE . [facility] Start: 08-29-2022 End: 08-30-[address] HARVEY MARTE Facility:[facility] Start: 08-29-2022 End: 08-30-2022 Encounter for general adult medical examination without abnormal findings DR BENNETT DUQUE . Facility:[facility] Start: 07-31-2022 End: 07-31-2022 ambulatory Jody Carey Other [place] [employer] Other Start: 07-31-2022 Office outpatient ne w 30 minutes Jody Carey [facility] Start: 04-22-2022 End: 04-22-[address] BENNETT DUQUE . Facility: Start: 02-05-2022 End: 02-05-[address] SEBASTIÁN FRIAS . Facility: Start: 01-24-2022 End: 01-25-[address] JESSIE HOPE . Facility: Procedures Date Procedure Procedure Detail Performing Clinician Start: 11-23-2024 ALL CBC WITH AUTO DIFF eJssie Hope DO Work Phone: Start: 11-23-2024 Urnls dip stick/tabl et rgnt non-auto w/o micrscp Jessie Hope DO Work Phone: Start: 03-14-2023 Cytp cerv/vag auto t hin layer prep mnl screen Jessie Hope DO Work Phone: Plan of Treatment Date Care Activity Detail Author Start: 02-01-2025 End: 02-01-2025 Patient encounter procedure 02/01/2025 1:30 PM EDT Procedure Visit [facility] [address] [place] [address] Jessie Hope, DO [address] [place] [address] [facility] Start: 01-04-2025 End: 01-04-2025 Patient encounter procedure 01/04/2025 1:20 PM EDT Office Visit [facility] [address] [place] [address] Jessie Hope, [address] [place] [address] [facility] Start: 11-23-2024 End: 11-23-2025 aPTT in Blood by Coagulation assay APTT Lab Routine Menorrhagia with regular cycle Expected: 11/23/2024 (Approximate), Expires: 11/23/2025 [facility] Comment on above: Expected: 11/23/2024 (Approximate), Expires: 11/23/2025 Start: 11-23-2024 End: 11-23-2025 US Pelvis US Pelvis w/ TV Imaging Routine Menorrhagia with irregular cycle Menorrhagia with regular cycle Expected: 11/23/2024, Expires: 11/23/2025 [facility] Comment on above: Expected: 11/23/2024 , Expires: 11/23/2025 Start: 11-23-2024 End: 11-23-2024 Patient encounter procedure 11/23/2024 9:30 AM EDT Office Visit [facility] [address] [place] [address] Jessie Hope, [address] [place] [address] Arrived [facility] Comment on above: Arrived CBC W Auto Different ial panel - Blood CBC and differential Lab Routine Menorrhagia with regular cycle Ordered: 11/23/2024 [facility] Work Phone: Comment on above: Ordered: 11/23/2024 hCG, quantitative, hCG, quantitative, Lab Routine Menorrhagia with regular cycle Ordered: 11/23/2024 [facility] Comment on above: Ordered: 11/23/2024 Hemoglobin A1c/Hemoglobin.total in Blood Hemoglobin A1c Lab Routine Menorrhagia with regular cycle Ordered: 11/23/2024 [facility] Comment on above: Ordered: 11/23/2024 Prothrombin time (PT ) in Blood by Coagulation assay Protime-INR Lab Routine Menorrhagia with regular cycle Ordered: 11/23/2024 [facility] Comment on above: Ordered: 11/23/2024 Thyrotropin [Units/volume] in Serum or Plasma TSH Lab Routine Menorrhagia with regular cycle Ordered: 11/23/2024 [facility] Comment on above: Ordered: 11/23/2024 Thyroxine (T4) free [Mass/volume] in Serum or Plasma T4, free Lab Routine Menorrhagia with regular cycle Ordered: 11/23/2024 [facility] Comment on above: Ordered: 11/23/2024 Payers Date Payer Category Payer [facility] [id number] 1980 Unknown [id number] 1980 Unknown [id number] 1980 Unknown [id number] 1980 Unknown [id number] 1980 Unknown [id number] 1980 Unknown [id number] [facility] [place] [id number] 1958 Unknown [id number] Social History Date Type Detail Facility Start: 03-24-2023 End: 11-23-2024 Sex Assigned At [facility] [email or web address] Other Start: 07-31-2022 Tobacco smoking stat [facility] Smoker (finding) [facility] Start: 1980 Sex Assigned At Female [facility] Start: 02-06-2023 Tobacco smoking stat [facility] Smokes tobacco daily [facility] History of tobacco use Cigarette Smoker [facility] Start: 03-24-2023 End: 11-23-2024 Alcoholic beverage intake Current drinker of alcohol (finding) [facility] Start: 03-24-2023 End: 11-23-2024 History of Social function [facility] Start: 02-06-2023 Tobacco Comment Patient smokes 6-10 cigarettes/day after 6-30 minutes of waking up. [facility] Start: 02-06-2023 Alcohol Comment monthly or less [facility] Start: 02-03-2023 Gender identity Identifies as female gender (finding) [facility] History of Present illness Narrative 11-23-2024 Yari Faria LPN - 11/23/2024 9:30 AM EDT Note Date & Type Note Facility 11-23-2024 History of Presen t illness Narrative Reason for Appointment: Patient ID: Keyla Keith is a 44 y.o. female who presents for Menorrhagia (Pt present today for menorrhagia and irregular bleeding. Pt has had 2 periods in September and then 10/24/2024-10/28/2024 heavy bleeding. 11/03/2024-11/08/2024 heavy bleeding and again started bleeding on 11/15/24-11/18/2024 another heavy period. ) Patient presents today for Acute Visit. and Consult appointment. MEDICATIONS Current Outpatient Medications Medication Instructions albuterol HFA 90 mcg/act inhaler INHALE 2 PUFFS BY MOUTH EVERY 4 HOURS FOR 14 DAYS ALLERGIES No Known Allergies PROBLEMS Active Ambulatory Problems Diagnosis Date Noted Plantar wart of right foot 02/05/2023 Resolved Ambulatory Problems Diagnosis Date Noted No Resolved Ambulatory Problems Past Medical History: Diagnosis Date Breast cancer screening 01/24/2022 Depressive disorder (CMS/HCC) H/O: section HISTORY PAST MEDICAL HISTORY SOCIAL HISTORY Past Medical History: Diagnosis Date Breast cancer screening 01/24/2022 neg Depressive disorder (CMS/HCC) not elsewhere classified H/O: section x2 Social History Tobacco Use Smoking status: Every Day Types: Cigarettes Smokeless tobacco: Not on file Tobacco comments: Patient smokes 6-10 cigarettes/day after 6-30 minutes of waking up. Substance Use Topics Alcohol use: Yes Comment: monthly or less Drug use: Never FAMILY HISTORY Family History Problem Relation Name Age of Onset Mental illness Father Prostate cancer Maternal Grandfather Cancer Paternal Grandfather SURGICAL HISTORY Past Surgical History: Procedure Laterality Date SECTION, CLASSIC x2 ENDOMETRIAL ABLATION 2023 HM MAMMOGRAPHY 01/24/2022 negative PAP SMEAR 02/05/2022 negative TUBAL LIGATION Bilateral 2016 REVIEW OF SYSTEMS Review of Systems: Review of Systems Constitutional: Negative. HENT: Negative. Eyes: Negative. Respiratory: Negative. Cardiovascular: Negative. Gastrointestinal: Negative. Genitourinary: Negative. Musculoskeletal: Negative. Skin: Negative. Neurological: Negative. All other systems reviewed and are negative. Hematological: Negative. Endocrine: Negative. Allergic/Immunologic: Negative. OBJECTIVE Objective: Physical Exam Constitutional: Appearance: Normal appearance. She is well-developed. Cardiovascular: Rate and Rhythm: Normal rate and regular rhythm. Pulmonary: Effort: Pulmonary effort is normal. Breath sounds: Normal breath sounds. Abdominal: General: Bowel sounds are normal. There is no distension. Palpations: Abdomen is soft. Tenderness: There is no abdominal tenderness. There is no guarding or rebound. Musculoskeletal: General: No swelling. Normal range of motion. Right lower leg: No edema. Left lower leg: No edema. Neurological: Mental Status: She is alert and oriented to person, place, and time. Skin: General: Skin is warm and dry. Psychiatric: Mood and Affect: Mood normal. Behavior: Behavior normal. Vitals and nursing note reviewed. Exam conducted with a associate chief nurse present. Vitals: Estimated body mass index is 32.11 kg/m as calculated from the following: Height as of 02/10/23: 5' 7 . Weight as of this encounter: 205 lb. BP: 122/78 Patient's last menstrual period was 11/18/2024 (approximate). ASSESSMENT & PLAN ICD-10-CM 1. Menorrhagia with irregular cycle N92.1 POCT urinalysis dipstick manually resulted 2. Spotting N92.0 POCT urinalysis dipstick manually resulted 3. Hormone imbalance E34.9 Pt presents with heavy bleeding irregular. Pt had ablation in 2022- pt given labs and ultrasound orders to have obtained. Pt desires surgical management at this time. Pt to be scheduled for Hysterectomy. Documented by Yari Faria LPN on behalf of: Jessie Hope DO documented in this encounter [facility] Evaluation note 07-31-2022 Note Date & Type Note Facility 07-31-2022 Evaluation note Encounter Date Diagnosis Assessment Notes Jul, Contact with and (suspected) exposure to other viral communicable diseases (ICD-10 - Z20.828) Jul, Influenza A (ICD-10 - J10.1) Advised patient that Influenza A PCR test was positive, COVID/Influenz a B/RSV test negative. Patient out of window for Tamiflu. Encouraged supportive care, OTC cold medications, Tylenol/Motrin as needed for body aches/fever, increase fluids and rest, use of cool mist humidifier. Follow-up with PCP to advise of positive result and further management need. Advised to stay home from work/activitie s until fever free for 24 hours without use of antipyretic. Immediate eval if respiratory distress, SOB, difficulty breathing, severe headache and neck pain/stiffness , rash, abdominal pain, N/V, poor PO intake, dehydration, lethargy, or if any new or concerning symptoms arise. Patient verbalizes understanding and is agreeable to treatment plan. Patient left in stable condition [employer] Other Evaluation note Note Date & Type Note Facility Evaluation note [facility] Evaluation note Note Date & Type Note Facility Evaluation note Diagnosis Menorrhagia with irregular cycle Spotting Other specified noninflammatory disorder of vagina Hormone imbalance Menorrhagia with regular cycle documented in this encounter [facility] History general Narrative - Reported Note Date & Type Note Facility History general Narrative - Reported Type Surgical History C section Hospitalization History see above [employer] Other Summary Purpose Family History No Family History Records FoundNo Family History Records Found Advance Directives No Advanced Directives Records Found Advance Directive Response Recorded Date/ Time Advance Directives No May 25, 2024 11:11am Chief Complaint and Reason for Visit Chief Complaint headache cough conge stion Additional Source Comments REASON FOR VISIT (unrecogniz ed section and content) Reason Comments Menorrhagia Pt present today for menorrhagia and irregular bleeding. Pt has had 2 periods in September and then 10/24/2024-10/28/2024 heavy bleeding. 11/03/2024-11/08/2024 heavy bleeding and again started bleeding on 11/15/24-11/18/2024 another heavy period. INFORMATION SOURCE (unrecogn ized section and content) DATE CREATED AUTHOR 12/10/2022 [facility] DATE CREATED AUTHOR AUTHOR'S ORGANIZ ATION 11/24/2024 [facility] EPIC Care Teams (unrecognized sec tion and content) Team Status: Active Member Role Status Dates Bennett Duque MD Primary Care Provider Active Team Status: Inactive Member Role Status Dates Bennett Duque MD Primary Care Provider Active Start: May 25, 2024 End: May 25, 2024 Jody Carey APRN Attending Provider Active Start: May 25, 2024 End: May 25, 2024 Change Management Administrator Relationship Specialty Start Date End Date Bennett Duque MD [address] [place] [address] PCP - General Family Medicine 02/10/23 Change Management Administrator Relationship Specialty Start Date End Date Bennett Duque MD [address] [place] [address] PCP - General Family Medicine 02/10/23 Change Management Administrator Relationship Specialty Start Date End Date Bennett Duque MD [address] [place] [address] PCP - General Family Medicine 02/10/23 Goals (unrecognized section and content) Goals may be documented in a n alternate section FOR RECORDS PERTAINING TO PATIENTS WHO ARE OR HAVE BEEN ENROLLED IN A CHEMICAL DEPENDENCY/SUBSTANCEABUSE PROGRAM, SOME INFORMATION MAY BE OMITTED. This clinical summary was aggregated from multiple sources. Caution should be exercised in using it in the provision of clinical care. This summary normalizes information from multiple sources, and as a consequence, information in this document may materially change the coding, format and clinical context of patient data. In addition, data may be omitted in some cases. CLINICAL DECISIONS SHOULD BE BASED ON THE PRIMARY CLINICAL RECORDS. [employer] provides no warranty or guarantee of the accuracy or completeness of information in this document.
--- NOTE | 2024-12-11 09:02 | US_ITS ---
The [address] [address] Patient Name: SALBADOR HUNT MRN: [id number] date: 1980 Sex: F Assigned Patient Location: Current Patient Location: Accession/Order Number: [id number] Exam Date: 12/13/2024 09:53 Report Date: 12/13/2024 09:58 At the request of: JESSIE RODRIGUEZ DO Procedure: US pelvis w/ transvaginal ULTRASOUND PELVIS WITH TRANSVAGINAL IMAGING COMPARISON: 02/24/2023 CLINICAL DATA: Menorrhagia with irregular cycle. Previous and uterine ablation. Real-time ultrasound evaluation pelvis was performed utilizing both transabdominal and transvaginal approach. TRANSABDOMINAL: The urinary bladder is not fully distended. The uterus is prominent measuring 12.5 x 5.1 x 5.5 cm in size. The endometrial lining is estimated at 6 - 7 mm. A hypoechoic nodular area seen at the fundus posteriorly measuring 3.3 x 3.1 x 3.5 cm. This may be a fibroid. The right ovary is identified however the left is not seen. The right ovary measures 1.7 x 1.9 x 2.0 cm. There are no adnexal cysts. There is documentation of ovarian blood flow. TRANSVAGINAL: Transvaginal imaging is suboptimal due to the overall uterine size. There are tiny suspected nabothian cysts. The endometrial lining is not well demonstrated. The ovaries are also poorly seen. There is no free fluid. US/US pelvis w/ transvaginal IMPRESSION: PROMINENT UTERUS WITH SUSPECTED FUNDAL FIBROID. NONVISUALIZATION OF THE LEFT OVARY. UNREMARKABLE RIGHT OVARY. Impression dictated by: Yari Gupta M.D. 12/13/2024 9:58 AM Dictation Location: [place] [address] Electronically authenticated by: [id number] Y Date: 12/13/2024 09:58
== END 2024-12-11 09:00 | disposition home or self-care (01) ==
LOC: US 08:59
PROVIDERS: PCP Family Medicine; Visit Provider Obstetrics & Gynecology
DX: N92.1 Excessive and frequent menstruation with irregular cycle (principal)
CPT/HCPCS: 76830; 76856

== ENCOUNTER 2025-01-04 20:09 | Outpatient (REF) | payer BC, SELFPAY ==
--- OUTSIDE RECORDS SUMMARY | 2025-01-04 20:16 | XMS_ITS | CCD ---
Author Organization [facility] CliniSyms Care Team Providers Care Medical Staff Director Name Role Phone Jody Carey Unavailable ANGEL, DR HARVEY Lloyd Consulting Unavailable LARS ., CASEY Admitting Unavailable LARS ., CASEY Attending Unavailable HOY ., DR GUAJARDO Primary Care Unavailable LARS ., CASEY Consulting Unavailable HOY ., DR GUAJARDO Admitting Unavailable HOY ., DR GUAJARDO Attending Unavailable HOY ., DR GUAJARDO Consulting Unavailable HOY ., DR GUAJARDO Primary Care Unavailable HERMINIA ., DR ROMAN Admitting Unavailable HERMINIA ., DR ROMAN Attending [...] HOY ., DR GUAJARDO Primary Care Unavailable Bennett Duque MD Primary Care Provider [phone] JESSIE HOPE Attending Unavailable Bennett Duque MD Primary Care Provider [phone] Bennett Duque MD Primary Care Provider [phone] Medications Current Medications Medication Drug Class(es) Dates Sig (Normalized) Sig (Original) [id number] 200 actuat albuterol 0.09 mg/actuat metered dose inhaler (6 sources) beta2-Adrenergic Agonist Start: 05-25-2024 take 2 [...] (SUSP) EXPOS COVID-19] Onset: 04-22-2022 Viral infection (6 sources) Plantar wart of right foot; Translations: [Plantar wart] Onset: 02-05-2023 02-05-2023 Episodic Results Test Name Value Interpretation Reference Range Facility US PELVIS W/ TRANSVAGINALon 12-13-2024 [place] [address] Ultrasound Report Signed Patient: KEYLA KEITH MR#: [id number] : 1980 Acct:[id number] Age/Sex: 44 / F ADM Date: 12/11/24 Loc: US Attending Dr: Jessie Hope D.O. Ordering Physician: Jessie Hope D.O. Date of Service: 12/11/24 Procedure(s): US pelvis w/ transvaginal Accession Number(s): [id number] cc: Jessie Hope D.O.; Bennett Duque M.D. [address] [address] Patient Name: KEYLA KEITH MRN: [facility]:[id number] date: 1980 Sex: F Assigned Patient Location: Current Patient Location: Accession/Order Number: [id number] Exam Date: 12/13/2024 09:53 Report Date: 12/13/2024 09:58 At the request of: JESSIE HOPE DO Procedure: US pelvis w/ transvaginal ULTRASOUND PELVIS WITH TRANSVAGINAL IMAGING COMPARISON: 02/24/2023 CLINICAL DATA: Menorrhagia with irregular cycle. Previous and uterine ablation. Real-time ultrasound evaluation pelvis was performed utilizing both transabdominal and transvaginal approach. TRANSABDOMINAL: The urinary bladder is not fully distended. The uterus is prominent measuring 12.5 x 5.1 x 5.5 cm in size. The endometrial lining is estimated at 6 - 7 mm. A hypoechoic nodular area seen at the fundus posteriorly measuring 3.3 x 3.1 x 3.5 cm. This may be a fibroid. The right ovary is identified however the left is not seen. The right ovary measures 1.7 x 1.9 x 2.0 cm. There are no adnexal cysts. There is documentation of ovarian blood flow. TRANSVAGINAL: Transvaginal imaging is suboptimal due to the overall uterine size. There are tiny suspected nabothian cysts. The endometrial lining is not well demonstrated. The ovaries are also poorly seen. There is no free fluid. US/US pelvis w/ transvaginal IMPRESSION: PROMINENT UTERUS WITH SUSPECTED FUNDAL FIBROID. NONVISUALIZATION OF THE LEFT OVARY. UNREMARKABLE RIGHT OVARY. Impression dictated by: Yari Gupta M.D. 12/13/2024 9:58 AM Dictation Location: [place] [address] Electronically authenticated by: [id number] Y Date: 12/13/2024 09:58 Dictated By: Yari Gupta M.D. Signed By: 12/13/24 1001 DD/ 0958 TD/TT: Medicine Aide: [facility] Radiology, Radiologist, - 12/13/[address] [address] Ultrasound Report Signed Patient: KEYLA KEITH MR#: [id number] : 1980 Acct:[id number] Age/Sex: 44 / F ADM Date: 12/11/24 Loc: US Attending Dr: Jessie Hope D.O. Ordering Physician: Jessie Hope D.O. Date of Service: 12/11/24 Procedure(s): US pelvis w/ transvaginal Accession Number(s): [id number] cc: Jessie Hope D.O.; Bennett Duque M.D. [place] [id number] Patient Name: KEYLA KEITH MRN: [id number] date: 1980 Sex: F Assigned Patient Location: US Current Patient Location: Accession/Order Number: [id number] Exam Date: 12/13/2024 09:53 Report Date: 12/13/2024 09:58 At the request of: JESSIE HOPE DO Procedure: US pelvis w/ transvaginal ULTRASOUND PELVIS WITH TRANSVAGINAL IMAGING COMPARISON: 02/24/2023 CLINICAL DATA: Menorrhagia with irregular cycle. Previous and uterine ablation. Real-time ultrasound evaluation pelvis was performed utilizing both transabdominal and transvaginal approach. TRANSABDOMINAL: The urinary bladder is not fully distended. The uterus is prominent measuring 12.5 x 5.1 x 5.5 cm in size. The endometrial lining is estimated at 6 - 7 mm. A hypoechoic nodular area seen at the fundus posteriorly measuring 3.3 x 3.1 x 3.5 cm. This may be a fibroid. The right ovary is identified however the left is not seen. The right ovary measures 1.7 x 1.9 x 2.0 cm. There are no adnexal cysts. There is documentation of ovarian blood flow. TRANSVAGINAL: Transvaginal imaging is suboptimal due to the overall uterine size. There are tiny suspected nabothian cysts. The endometrial lining is not well demonstrated. The ovaries are also poorly seen. There is no free fluid. US/US pelvis w/ transvaginal IMPRESSION: PROMINENT UTERUS WITH SUSPECTED FUNDAL FIBROID. NONVISUALIZATION OF THE LEFT OVARY. UNREMARKABLE RIGHT OVARY. Impression dictated by: Yari Gupta M.D. 12/13/2024 9:58 AM Dictation Location: [place] [address] Electronically authenticated by: [id number] Y Date: 12/13/2024 09:58 Dictated By: Yari Gupta M.D. Signed By: 12/13/24 1001 DD/ 0958 TD/TT: Medicine Aide: [facility] Radiology Study observation (narrative) [facility] US PELVIS W/ TRANSVAGINALOrd ered By: Radiologist Radiology on 12-13-2024 [facility] Work Phone: ALL CBC WITH AUTO DIFFon BASOPHILS ABSOLUTE AUTO 0 N [facility] Basophils/100 WBC (Bld) 0.3 % 0.2 - 2.0 % [facility] Eosinophils/100 WBC (Bld) 2.3 % 0.9 - 7.0 % [facility] Erythrocyte distribution width (RBC) [Ratio] 12.2 % 11.0 - 15.0 % [facility] Hematocrit (Bld) [Volume fraction] 42.6 % 36.0 - 48.0 % [facility] Hemoglobin (Bld) [Mass/Vol] 14 g/dL 12.0 - 16.0 g/dL [facility] IMMATURE GRANULOCYTES ABS AUTO 0.01 [facility] Immature granulocytes/100 WBC (Bld) 0.1 % 0.0 - 0.5 % [facility] Interpretation and review of laboratory results Abnormal [facility] LYMPHOCYTES ABSOLUTE AUTO 1.9 [facility] Lymphocytes/100 WBC (Bld) 26.2 % 20.5 - 60.0 % [facility] MCH (RBC) [Entitic mass] 32.6 pg 26.7 - 34.0 pg [facility] MCHC (RBC) [Mass/Vol] 32.9 g/dL 29.9 - 35.2 g/dL [facility] MCV (RBC) [Entitic vol] 99.1 fL High 81.0 - 99.0 fL [facility] MONOCYTES ABSOLUTE AUTO 0.4 N [facility] Monocytes/100 WBC (Bld) 5.1 % 1.7 - 12.0 % [facility] NEUTROPHILS ABSOLUTE AUTO 4.9 [facility] Neutrophils/100 WBC (Bld) 66 % 43.0 - 75.0 % [facility] Platelet mean volume (Bld) [Entitic vol] 9.4 fL Low 9.5 - 13.5 fL [facility] TBH EO # 0.2 [facility].3 [facility] WBC 7.4 [facility] e Urinalysis macro (dipstick) panel (U)on 11-23-2024 Bilirubin, UA Negative Negative - 4(70) +++ mg/dL [facility] Blood, UA Positive Negative - 50 Marvin/mcL [facility] Comment on above: moderate Clarity, UA Clear [facility] re Color, UA Yellow [facility] e Glucose, UA Negative Negative - 1999(110) ++++ mg/dL [facility] Interpretation and review of laboratory results Abnormal [facility] Ketones, UA Negative Negative - 160(16) ++++ mg/dL [facility] Leukocytes, UA Negative Negative - 500+++ Nilo/mcL [facility] Nitrite, UA Negative Negative - Positive [facility] pH, UA 5.5 5 - 9 [facility] e Protein, UA Trace Negative - 1999(20) ++++ mg/dL [facility] Spec Grav, UA 1.03 1 - 1.03 [facility] Urobilinogen, UA 0.2 0.2 - 12 mg/dL [facility] Cytology Cervical or vaginal smear or scraping studyOrdered By: Cathleen Dubon on 03-14-2023 [facility] CBC AUTO DIFFon 08-29-2022 BASO # 0.0 103/ul Normal 0.0-0.1 [facility] Comment on above: Performed By: #### C BC ####[facility] [address] [place] [address]DrAugustus Fair Basophils/100 WBC (Bld) 0.2 % Normal 0.2-2.0 [facility] Comment on above: Performed By: #### C BC ####[facility] [address] [place] [id number] Fair EO # 0.2 103/ul Normal 0.0-0.7 [facility] Comment on above: Performed By: #### C BC ####[facility] [address] [place], [place] [address]Dr. Manuel Fair Eosinophils/100 WBC (Bld) 2.9 % Normal 0.9-7.0 [facility] Comment on above: Performed By: #### C BC ####[facility] [address] [place], [place] [address]Dr. Manuel Fair Erythrocyte distribution width (RBC) [Ratio] 12.2 % Normal 11.0-15.0 [facility] Comment on above: Performed By: #### C BC ####[facility] [address] [place], [place] [address]Dr. Lauraperri Fair Hematocrit (Bld) [Volume fraction] 44.2 % Normal 36.0-48.0 [facility] Comment on above: Performed By: #### C BC ####[facility] [address] [place], [place] [address]Dr. Manuel Fair Hemoglobin (Bld) [Mass/Vol] 13.2 g/dL Normal 12.0-16.0 [facility] Comment on above: Performed By: #### C BC ####[facility] [address] [place], [place] [address]Dr. Manuel Fair IG # 0.01 10e3/ul Normal 0.00-0.03 [facility] Comment on above: Performed By: #### C BC ####[facility] [address] [place], [place] [address]Dr. Manuel Fair IG % 0.2 % Normal 0.0-0.5 [facility] Comment on above: Performed By: #### C BC ####[facility] [address] [place], [place] [address]Dr. Manuel Fair LYMPH # 2.1 103/ul Normal 1.2-3.8 [facility] Comment on above: Performed By: #### C BC ####[facility] [address] [place], [place] [address]DrAugustus Fair Lymphocytes/100 WBC (Bld) 33.7 % Normal 20.5-60.0 [facility] Comment on above: Performed By: #### C BC ####[facility] [address] [place] [address]DrAugustus Fair MANUAL DIFF REQ NO Normal [facility] Comment on above: Performed By: #### C BC ####[facility] [address] [place] [address]DrAugustus Fair MCH (RBC) [Entitic mass] 32.1 pg Normal 26.7-34.0 [facility] Comment on above: Performed By: #### C BC ####[facility] [address] [place] [address]DrAugustus Fair MCHC (RBC) [Mass/Vol] 29.9 g/dL Normal 29.9-35.2 [facility] Comment on above: Performed By: #### C BC ####[facility] [address] [place], [place] [address]DrAugustus Fair MCV (RBC) [Entitic vol] 107.5 fL Critically high 81.0-99 .0 [facility] Comment on above: Performed By: #### C BC ####[facility] [address] [place], [place] [address]DrAugustus Fair MONO # 0.3 103/ul Normal 0.3-0.8 [facility] Comment on above: Performed By: #### C BC ####[facility] [address] [place], [place] [address]DrAugustus Fair Monocytes/100 WBC (Bld) 5.2 % Normal 1.7-12.0 [facility] Comment on above: Performed By: #### C BC ####[facility] [address] [place], [place] [address]DrAugustus Fair NEUT # 3.5 103/ul Normal 1.4-6.5 [facility] Comment on above: Performed By: #### C BC ####[facility] [address] [place], [place] [address]DrAugustus Fair Neutrophils/100 WBC (Bld) 57.8 % Normal 43.0-75.0 [facility] Comment on above: Performed By: #### C BC ####[facility] [address] [place] [address]Dr. Manuel Fair Platelet mean volume (Bld) [Entitic vol] 9.8 fL Normal 9.5-13.5 [facility] Comment on above: Performed By: #### C BC ####[facility] [address] [place] [id number]. Manuel Marv PLT 214 103/ul Normal 150-450 [facility] Comment on above: Performed By: #### C BC ####[facility] [address] [place] [address]Dr. Manuel Marv RBC 4.11 106/ul Critically low 4.20-5.40 [facility] Comment on above: Performed By: #### C BC ####[facility] [address] [place] [address]Dr. Manuel Marv WBC 6.1 103/ul Normal 4.0-11.0 [facility] Comment on above: Performed By: #### C BC ####[facility] [address] [place] [address]DrAugustus Manuel Marv FREE THYROXINE INDEX T7on FTI 2.56 Normal 1.30-4.50 [facility] Comment on above: Performed By: #### T 7, TSH, LIPID, CMP #### [facility] [address] [place] [address] [address] Manuel Fair T3U 36.0 % Normal 30.0-39.0 [facility] Comment on above: Performed By: #### T 7, TSH, LIPID, CMP #### [facility] [address] [place] [address] [address] Manuel Fair T4 [Mass/Vol] 7.10 ug/dL Normal 4.80-13.90 [facility] Comment on above: Performed By: #### T 7, TSH, LIPID, CMP #### [facility] [address] [place] [address] [address] Manuel Fair GLYCOHEMOGLOBIN A1Con 2022 ADA RECOMMENDATION SEE BELOW Normal [facility] Comment on above: Result Comment: ADA RECOMMENDED LIMIT 4.0 - 6.0 ADA THERAPEUTIC TARGET < 7.0 ACTION SUGGESTED > 7.0 Performed By: #### A 1C #### [facility] [address] [place] [address] Dr. Manuel Fair Glucose [Mass/Vol] 111 mg/dL Normal [facility] Comment on above: Performed By: #### A 1C #### [facility] [address] [place] [address] Dr. Manuel Fair HbA1c (Bld) [Mass fraction] 5.5 % Normal 4.5-6.2 [facility] Comment on above: Performed By: #### A 1C #### [facility] [address] [place] [address] Dr. Manuel Fair LIPID PROFILEon 08-29-2022 CHOL-HDL RATIO NORM SEE BELOW Normal [facility] Comment on above: Result Comment: 3.3 - 4.4 LOW RISK 4.4 - 7.1 AVERAGE RISK 7.1 - 11.0 MODERATE RISK >11.0 HIGH RISK Performed By: #### T 7, TSH, LIPID, CMP #### [facility] [address] [place] [address] Dr. Manuel Fair Cholesterol [Mass/Vol] 183 mg/dL Normal <=200 [facility] Comment on above: Performed By: #### T 7, TSH, LIPID, CMP #### [facility] [address] [place] [address] Dr. Manuel Fair Cholesterol in HDL [Mass/Vol] 44 mg/dL Normal 40-60 [facility] Comment on above: Performed By: #### T 7, TSH, LIPID, CMP #### [facility] [address] [place] [address] Dr. Manuel Fair Cholesterol in LDL [Mass/Vol] 111.2 mg/dL Normal [facility] Comment on above: Performed By: #### T 7, TSH, LIPID, CMP #### [facility] [address] [place] [address] [address] Manuel Fair Cholesterol.total/Lucina sterol in HDL [Mass ratio] 4.2 {ratio} Normal [facility] Comment on above: Performed By: #### T 7, TSH, LIPID, CMP #### [facility] [address] [place] [address] [address] Manuel Fair HDL NORMAL > or = 60 mg/dl - LOW CARDIOVASCULAR RISK <40 mg/dl - HIGH CARDIOVASCULAR RISK Normal [facility] Comment on above: Performed By: #### T 7, TSH, LIPID, CMP #### [facility] [address] [place] [address] [address] Manuel Fair LDL CALC NORMAL SEE BELOW Normal [facility] Comment on above: Result Comment: <100 mg/dl OPTIMAL 100 - 129 mg/dl NEAR OR ABOVE OPTIMAL 130 - 159 mg/dl BORDERLINE HIGH 160 - 189 mg/dl HIGH >190 mg/dl VERY HIGH Performed By: #### T 7, TSH, LIPID, CMP #### [facility] [address] [place] [address] [address] Manuel Fair Triglyceride [Mass/Vol] 139 mg/dL Normal <=150 T [facility] Comment on above: Performed By: #### T 7, TSH, LIPID, CMP #### [facility] [address] [place] [address] [address] Manuel Fair VLDL CALC 27.8 mg/dL Normal [facility] Comment on above: Performed By: #### T 7, TSH, LIPID, CMP #### [facility] [address] [place] [address] [address] Manuel Fair MG MAMM FRAN[place]ESKA DIAG W CADon MG MAMM [place] DIAG W CAD Patient: KEYLA KEITH Exam Date: 08/29/2022 : 1980 Gender:F Ordering : PRERNA SOUSA . Admission #: [id number] Family : DR JESSIE HOPE . Order #: [id number] CLICK HERE TO VIEW EXAM RADIOLOGY REPORT [...] colon cancer at age 63. LOCATION: [facility] BREAST COMPOSITION: Heterogeneously dense,which may obscure small [...] Marte M.D. on 08/29/2022 at 10:34 Normal [facility] PROF 14(COMP METB)on 023 Albumin [Mass/Vol] 3.7 g/dL Normal 3.4-5.0 [facility] Comment on above: Performed By: #### T 7, TSH, LIPID, CMP #### [facility] [address] [place] [address] [address] Manuel Fair Albumin/Globulin [Mass ratio] 1.1 {ratio} Normal [facility] Comment on above: Performed By: #### T 7, TSH, LIPID, CMP #### [facility] [address] [place] [address] [address] Manuel Fair ALP [Catalytic activity/Vol] 73 U/L Normal 46-116 [facility] Comment on above: Performed By: #### T 7, TSH, LIPID, CMP #### [facility] [address] [place] [address] [address] Manuel Fair ALT [Catalytic activity/Vol] 21 U/L Normal 14-59 [facility] Comment on above: Performed By: #### T 7, TSH, LIPID, CMP #### [facility] [address] [place] [address] [address] Manuel Fair Anion gap [Moles/Vol] 11.1 mmol/L Normal Th [facility] Comment on above: Performed By: #### T 7, TSH, LIPID, CMP #### [facility] [address] [place] [address] Dr. Manuel Fair AST [Catalytic activity/Vol] 15 U/L Normal 15-37 [facility] Comment on above: Performed By: #### T 7, TSH, LIPID, CMP #### [facility] [address] [place] [address] Dr. Manuel Fair Bilirubin [Mass/Vol] 0.4 mg/dL Normal 0.2-1.0 [facility] Comment on above: Performed By: #### T 7, TSH, LIPID, CMP #### [facility] [address] [place] [address] Dr. Manuel Fair Calcium [Mass/Vol] 8.9 mg/dL Normal 8.5-10.1 [facility] Comment on above: Performed By: #### T 7, TSH, LIPID, CMP #### [facility] [address] [place] [address] Dr. Manuel Fair Chloride [Moles/Vol] 103 mmol/L Normal 98-107 [facility] Comment on above: Performed By: #### T 7, TSH, LIPID, CMP #### [facility] [address] [place] [address] Dr. Manuel Fair CO2 [Moles/Vol] 29.8 mmol/L Normal 21.0-32.0 [facility] Comment on above: Performed By: #### T 7, TSH, LIPID, CMP #### [facility] [address] [place] [address] Dr. Manuel Fair Creatinine [Mass/Vol] 0.60 mg/dL Normal 0.55-1.02 [facility] Comment on above: Performed By: #### T 7, TSH, LIPID, CMP #### [facility] [address] [place] [address] Dr. Manuel Fair EGFR-AF ECUADOREAN >60 Normal >=60 [facility] Comment on above: Performed By: #### T 7, TSH, LIPID, CMP #### [facility] [address] [place] [address] Dr. Manuel Fair EGFR-NON AF ECUADOREAN >60 Normal >=60 [facility] Comment on above: Performed By: #### T 7, TSH, LIPID, CMP #### [facility] [address] [place] [address] Dr. Manuel Fair Globulin (S) [Mass/Vol] 3.3 g/dL Normal T [facility] Comment on above: Performed By: #### T 7, TSH, LIPID, CMP #### [facility] [address] [place] [address] Dr. Manuel Fair Glucose [Mass/Vol] 91 mg/dL Normal 74-[address] [facility] Comment on above: Performed By: #### T 7, TSH, LIPID, CMP #### [facility] [address] [place] [address] Dr. Manuel Fair Potassium [Moles/Vol] 3.9 mmol/L Normal 3.5-5.1 [facility] Comment on above: Performed By: #### T 7, TSH, LIPID, CMP #### [facility] [address] [place] [address] Dr. Manuel Fair Protein [Mass/Vol] 7.0 g/dL Normal 6.4-8.[address] [facility] Comment on above: Performed By: #### T 7, TSH, LIPID, CMP #### [facility] [address] [place] [address] Dr. Manuel Fair Sodium [Moles/Vol] 140 mmol/L Normal 136-[address] [facility] Comment on above: Performed By: #### T 7, TSH, LIPID, CMP #### [facility] [address] [place] [address] Dr. Manuel Fair Urea nitrogen [Mass/Vol] 9.0 mg/dL Normal 7.0-18.0 [facility] Comment on above: Performed By: #### T 7, TSH, LIPID, CMP #### [facility] [address] [place], [place] [address] Dr. Manuel Fair Urea nitrogen/Creatinine [Mass ratio] 15.0 mg/mg Normal [facility] Comment on above: Performed By: #### T 7, TSH, LIPID, CMP #### [facility] [address] [place], [place] [address] Dr. Manuel Fair TSHon 08-29-2022 TSH 2.065 uIU/mL Normal 0.358-3.740 [facility] Comment on above: Performed By: #### T 7, TSH, LIPID, CMP #### [facility] [address] [place], [place] [address] Dr. Manuel Fair US BREAST LEFT LIMITEDon US BREAST LEFT LIMITED Patient: KEYLA KEITH Exam Date: 08/29/2022 : 1980 Gender:F Ordering : PRERNA SOUSA . Admission #: [id number] Family : DR JESSIE HOPE . Order #: [id number] CLICK HERE TO VIEW EXAM RADIOLOGY REPORT [...] colon cancer at age 63. LOCATION: [facility] BREAST COMPOSITION: Heterogeneously dense,which may obscure small [...] Marte M.D. on 08/29/2022 at 10:34 Normal [facility] COVID/FLU/RSV RT-PCRon 07-31 SARS-CoV-2 (COVID-19) RNA WAYNE+probe Ql (Unsp spec) Negative [facility] Other COVID/FLU/RSV RT-PCR Positive [facility] Other COVID/FLU/RSV RT-PCR Negative [facility] Other Covid-19 PCR ([facility])on 04-04 SARS-CoV-2 (COVID-19) RNA WAYNE+probe Ql (Unsp spec) Not detected Normal NOT DETECTED [facility] Comment on above: Result Comment: This test is not yet approved or cleared by the [place] FDA. When there are no FDA-approved or cleared tests available, and other criteria are met, FDA can make tests available under an emergency access mechanism called an Emergency Use Authorization (EUA). The EUA for this test is supported by the [place] of Health and Human Service's (HHS's) declaration [...] consistent with SARS-CoV-2. Performed By: #### C VDTB #### [facility] [address] [place] [address] [id number] Dr. Manuel Fair PAP ACOG PANEL 2: 30 to 65on 02-09-2022 . . Normal [facility] Comment on above: Result Comment: Perf ormed at: WB Performed By: #### [id number] #### [facility] [address] [place] [address] Dr. Manuel Fair Age Gdln ACOG Testing 30-65 Normal [facility] Comment on above: Performed By: #### [id number] #### [facility] [address] [place] [address] Dr. Manuel Fair DIAGNOSIS: Comment Normal [facility] Comment on above: Result Comment: NEGA TIVE FOR INTRAEPITHELIAL LESION OR MALIGNANCY. Performed at: WB Performed By: #### [id number] #### [facility] [address] [place] [address] Dr. Manuel Fair HPV Aptima Negative Normal Negative [facility] Comment on above: Result Comment: This nucleic acid amplification test detects fourteen high-risk HPV types (16,18,31,33,35,39,45,51,52,56,58,59,66,68) without differentiation. Performed at: =G Performed By: #### [id number] #### [facility] [address] [place] [address] Dr. Manuel Fair Methodology: Comment Normal [facility] Comment on above: Result Comment: This liquid based ThinPrep(R) pap test was screened with the use of an image guided system. Performed at: WB Performed By: #### [id number] #### [facility] [address] [place] [address] Dr. Manuel Fair Note: Comment Normal [facility] Comment on above: Result Comment: The Pap smear is a screening test designed to aid in the detection of premalignant and malignant conditions of the uterine cervix. It is not a diagnostic procedure and should not be used as the sole means of detecting cervical cancer. Both false-positive and false-negative reports do occur. . Performed at: WB Performed By: #### [id number] #### [facility] [address] [place] [address] Dr. Manuel Fair Performed by: Comment Normal [facility] Comment on above: Result Comment: Michael Armendariz, Nuclear Unit Operator (ASCP) Performed at: WB Performed By: #### [id number] #### [facility] [address] [place] [address] Dr. Manuel Fari Specimen adequacy: Comment Normal [facility] Comment on above: Result Comment: Sati sfactory for evaluation. No endocervical component is identified. Performed at: WB Performed By: #### [id number] #### [facility] [address] [address] [address] Manuel Fair MG MAMM SCREEN 3D FRAN[place]ESKA CADon 01-24-2022 MG MAMM SCREEN 3D [place] CAD Patient: KEYLA KEITH Exam Date: 01/24/2022 : 1980 Gender:F Ordering : DR JESSIE HOPE . Admission #: [id number] Family : DR BENNETT DUQUE . Order #: [id number] CLICK HERE TO VIEW EXAM RADIOLOGY REPORT PROCEDURE: MAMMOGRAM SCREENING 3D BILATERAL CAD COMPARISON: None. INDICATIONS: Screening mammography Calculator Name NCI Breast Cancer Risk Assessment Tool 5 Year Breast Cancer Risk 0.80% Lifetime Breast Cancer Risk 13.60% Personal Breast Cancer No Personal Ovarian Cancer No Treatments None Family Cancers Mother with colon cancer at age 62. LOCATION: [facility] BREAST COMPOSITION: Heterogeneously dense,which may obscure small [...] Marte M.D. on 01/25/2022 at 13:56 Normal [facility] Vital Signs Date Time Vital Sign Value Performing Clinician Facility 11-23-2024 09:31-0400 Body mass index (BMI) [Ratio] 32.11 kg/m2 [employer] Work Phone: [facility] 11-23-2024 09:31-0400 Body weight 92.99 kg [employer] Work Phone: [facility] 11-23-2024 09:31-0400 Diastolic blood pressure 78 mm[Hg] Jessie Herminia DO Work Phone: [facility] 11-23-2024 09:31-0400 Systolic blood pressure 122 mm[Hg] Jessie Hope DO Work Phone: [facility] 05-25-2024 11:52-0400 Body height 170.[address] [facility] 05-25-2024 11:52-0400 Body mass index (BMI) [Ratio] 32.4 kg/m2 [facility] 05-25-2024 11:52-0400 Body temperature 97.5 [degF] [facility] 05-25-2024 11:52-0400 Body weight 93.[address] [facility] 05-25-2024 11:52-0400 Diastolic blood pressure 83 mm[Hg] [facility] 05-25-2024 11:52-0400 Heart rate 91 /min [facility] 05-25-2024 11:52-0400 Respiratory rate 18 /min [facility] 05-25-2024 11:52-0400 SaO2% (BldA) [Mass fraction] 98 % [facility] 05-25-2024 11:52-0400 Systolic blood pressure 134 mm[Hg] [facility] 07-31-2022 12:15-0500 Body height 167.64 cm Jody Carey Other [facility] [employer] Other 07-31-2022 12:15-0500 Body mass index (BMI) [Ratio] 32.28 kg/m2 Jody Carey Other [employer] [facility] [employer] Other 07-31-2022 12:15-0500 Body temperature 97.3 [degF] Jody Carey Other [employer] Other 07-31-2022 12:15-0500 Body weight 90.72 kg Jody Carey Other [employer] Other 07-31-2022 12:15-0500 Respiratory rate 18 /min Jody Aurelio Other [employer] Other 07-31-2022 12:15-0500 SaO2% (BldA) [Mass fraction] 98 % Jody Carey Other [employer] Other Encounters Encounter Date Encounter Type Care Provider Facility Start: 01-04-2025 End: 01-04-2025 Bamboo flowsheet Jessie Herminia DO Work Phone: [facility] Start: 01-04-2025 End: 01-04-2025 [employer]amboo flowsheet Jessie Herminia DO Work Phone: [facility] Start: 12-13-2024 End: 12-13-2024 Clinis[employer] Result Encounter Jessie Herminia DO Work Phone: [facility] External Department Unsolicited Start: 12-13-2024 End: 12-13-2024 Clinisync Result Encounter Jessie Herminia DO Work Phone: [facility] External Department Unsolicited Start: 11-23-2024 End: 11-23-2024 Bamboo flowsheet Jessie Herminia DO Work Phone: [facility] Start: 11-23-2024 End: 11-23-2024 Bamboo flowsheet Jessie Herminia DO Work Phone: [facility] Start: 11-23-2024 End: 11-23-2024 Clinisync Result Encounter Jessie Herminia DO Work Phone: [facility] External Department Unsolicited Start: 11-23-2024 End: 11-23-2024 Office outpatient visit 15 minutes Jessie Herminia DO Work Phone: [facility] Comment on above: Menorrhagia with irr egular cycle; Spotting; Hormone imbalance; Menorrhagia with regular cycle Start: 11-23-2024 End: 11-23-2024 ambulatory JESSIE HERMINIA Not Available Start: 05-25-2024 End: 05-25-2024 ambulatory [facility] Work Phone: Start: 05-25-2024 End: 05-25-2024 Patient encounter procedure [facility] Work Phone: Start: 08-30-2022 Encounter for genera l adult medical examination without abnormal findings DR BENNETT DUQUE . [facility] Start: 08-29-2022 End: 08-30-[address] HARVEY MARTE Facility:[facility] Start: 08-29-2022 End: 08-30-2022 Encounter for general adult medical examination without abnormal findings DR BENNETT DUQUE . Facility:[facility] Start: 07-31-2022 End: 07-31-2022 ambulatory Jody Carey Other [employer] Other Start: 07-31-2022 Office outpatient ne w 30 minutes Jody Carey [facility] Start: 04-22-2022 End: 04-22-[address] BENNETT DUQUE . Facility:[facility] Start: 02-05-2022 End: 02-05-[address] SEBASTIÁN FRIAS . Facility:[facility] Start: 01-24-2022 End: 01-25-[address] JESSIE HOPE . Facility: Procedures Date Procedure Procedure Detail Performing Clinician Start: 12-13-2024 US PELVIS W/ TRANSVAGINAL Jessie Herminia DO Work Phone: Start: 11-23-2024 ALL CBC WITH AUTO DIFF Jessie Herminia DO Work Phone: Start: 11-23-2024 Urnls dip stick/tabl et rgnt non-auto w/o micrscp Jessie Herminia DO Work Phone: Start: 03-14-2023 Cytp cerv/vag auto t hin layer prep mnl screen Jessie Herminia DO Work Phone: Plan of Treatment Date Care Activity Detail Author Start: 02-01-2025 End: 02-01-2025 Patient encounter procedure 02/01/2025 1:30 PM EDT Procedure Visit [facility] [address] [place] [phone] Jessie Hope, DO [address] [place] [address] [facility] Start: 01-04-2025 End: 01-04-2025 Patient encounter procedure [facility] Comment on above: Arrived Start: 11-23-2024 End: 11-23-2025 aPTT in Blood by Coagulation assay APTT Lab Routine Menorrhagia with regular cycle Expected: 11/23/2024 (Approximate), Expires: 11/23/2025 [facility] Comment on above: Expected: 11/23/2024 (Approximate), Expires: 11/23/2025 Start: 11-23-2024 End: 11-23-2025 US Pelvis US Pelvis w/ TV Imaging Routine Menorrhagia with irregular cycle Menorrhagia with regular cycle Expected: 11/23/2024, Expires: 11/23/2025 [facility] Comment on above: Expected: 11/23/2024 , Expires: 11/23/2025 Start: 11-23-2024 End: 11-23-2024 Patient encounter procedure 11/23/2024 9:30 AM EDT Office Visit [facility] [address] [place] [phone] Jessie Hope, DO [address] [place] [address] Arrived [facility] Comment on above: Arrived CBC W Auto Different ial panel - Blood CBC and differential Lab Routine Menorrhagia with regular cycle Ordered: 11/23/2024 [facility] Work Phone: Comment on above: Ordered: 11/23/2024 hCG, quantitative, hCG, quantitative, Lab Routine Menorrhagia with regular cycle Ordered: 11/23/2024 [facility] Comment on above: Ordered: 11/23/2024 Hemoglobin A1c/Hemoglobin.total in Blood Hemoglobin A1c Lab Routine Menorrhagia with regular cycle Ordered: 11/23/2024 [facility] Comment on above: Ordered: 11/23/2024 Prothrombin time (PT ) in Blood by Coagulation assay Protime-INR Lab Routine Menorrhagia with regular cycle Ordered: 11/23/2024 [facility] Comment on above: Ordered: 11/23/2024 Thyrotropin [Units/volume] in Serum or Plasma TSH Lab Routine Menorrhagia with regular cycle Ordered: 11/23/2024 [facility] Comment on above: Ordered: 11/23/2024 Thyroxine (T4) free [Mass/volume] in Serum or Plasma T4, free Lab Routine Menorrhagia with regular cycle Ordered: 11/23/2024 [facility] Comment on above: Ordered: 11/23/2024 Payers Date Payer Category [facility] [id number] 1980 Unknown [id number] 1980 Unknown [id number] 1980 Unknown [id number] 1980 Unknown [id number] 1980 Unknown [id number] 1980 Unknown [id number] 1958 [facility] [id number] 1958 Unknown [id number] Social History Date Type Detail Facility Start: 03-24-2023 End: 11-23-2024 Sex Assigned At [facility] [employer] Other Start: 07-31-2022 Tobacco smoking stat [facility] Smoker (finding) [facility] Start: 1980 Sex Assigned At Female [facility] Start: 02-06-2023 Tobacco smoking stat [facility] Smokes tobacco daily [facility] History of tobacco use Cigarette Smoker [facility] Start: 03-24-2023 End: 11-23-2024 Alcoholic beverage intake Current drinker of alcohol (finding) [facility] Start: 03-24-2023 End: 11-23-2024 History of Social function [facility] Start: 02-06-2023 Tobacco Comment Patient smokes 6-10 cigarettes/day after 6-30 minutes of waking up. [facility] Start: 02-06-2023 Alcohol Comment monthly or less [facility] Start: 02-03-2023 Gender identity Identifies as female gender (finding) [facility] History of Present illness Narrative 11-23-2024 Yarizeferino Faria, ALONSO - 11/23/2024 9:30 AM EDT Note Date [...] nursing note reviewed. Exam conducted with a director treasurer present. Vitals: Estimated body mass index is [...] Jessie Hope DO documented in this encounter [facility] Evaluation note 07-31-2022 Note Date & [...] treatment plan. Patient left in stable condition [employer] Other Evaluation note Note Date & Type Note Facility Evaluation note No assessment information [facility] Work Phone: Evaluation note Note Date & Type Note Facility Evaluation note Diagnosis Menorrhagia with irregular cycle Spotting Other specified noninflammatory disorder of vagina Hormone imbalance Menorrhagia with regular cycle documented in this encounter [facility] History general Narrative - Reported Note Date & Type Note Facility History general Narrative - Reported Type Surgical History C section Hospitalization History see above [employer] Other Summary Purpose Family History No Family History Records FoundNo Family History Records Found Advance Directives Advance Directive Response Recorded Date/ Time Advance [...] content) DATE CREATED AUTHOR 12/10/2022 [facility] DATE CREATED AUTHOR 'S ORGANIZ ATION 11/24/2024 [facility] [employer] Care Teams (unrecognized sec tion and content) Team Status: Active Member Role Status Dates Bennett Duque MD Primary Care Provider Active Team Status: Inactive Member Role Status Dates Bennett Duque MD Primary Care Provider Active Start: May 25, 2024 End: May 25, 2024 Jody Carey APRN Attending Provider Active Start: May 25, 2024 End: May 25, 2024 Medical Staff Director Relationship Specialty Start Date End Date Bennett Duque MD [address] [place] [address] PCP - General Family Medicine 02/10/23 Medical Staff Director Relationship Specialty Start Date End Date Bennett Duque MD [address] [place] [address] PCP - General Family Medicine 02/10/23 Medical Staff Director Relationship Specialty Start Date End Date Bennett Duque MD [address] [place] [address] PCP - General Family Medicine 02/10/23 Medical Staff Director Relationship Specialty Start Date End Date Bennett Duque MD PCP - General Family Medicine 02/10/23 Goals [...] BE BASED ON THE PRIMARY CLINICAL RECORDS. [employer] provides no warranty or guarantee of the accuracy or completeness of information in this document.
[2025-01-07 12:09] LABS: Age Gdln ACOG Testing Note (.); HPV Aptima Negative (Negative); IGP, Aptima HPV, rfx 16/18,45 Note (.)
== END 2025-01-04 20:10 | disposition home or self-care (01) ==
LOC: LAB 20:09
PROVIDERS: PCP Family Medicine; Visit Provider Obstetrics & Gynecology
DX: Z01.419 Encounter for gynecological examination (general) (routine) without abnormal findings (principal)
CPT/HCPCS: 87624; 88175

== ENCOUNTER 2025-02-01 08:21 | Outpatient (REF) | payer BC, SELFPAY ==
--- OUTSIDE RECORDS SUMMARY | 2024-12-14 12:15 | XMS_ITS ---
Author Organization [facility] in [place] Address [address] [place] [address] Care Team Providers Care Ultrasonic Welding Machine Operator Name Role Phone MonoXavier beltran Primary Care Provider Birdie Parkinson Unavailable [phone] Allergies No Known Allergies REASON FOR VISIT 6 days of right foot (top) pain- that boot is a little harder to put on - DH patient, No known injury- has been taking IBU but doesn't touch the pain/burning, Patient states has a toe that is weird - thinks is toenail fungus, has been treating it Medications Medication SIG (Take, Route, Frequency, Duration) Notes Start Date End Date Status predniSONE 20 MG 2 tablet Orally Once a day for 5 days 12/14/2024 Active Albuterol Sulfate HFA 108 (90 Base) MCG/ACT 2 puff as needed Inhalation every 4 hrs for 30 days 06/04/2023 Active Social History Tobacco Use: Social History Observation Description Date Details (start date - stop date) Current Smoker 08/04/1999 - NA Tobacco Use/Smoking Question Answer Notes Patient is a current smoker When did you start smoking? 08/04/1999 How many cigarettes a day do you smoke? 11-20 How soon after you wake up d o you smoke your first cigarette? within 5 minutes Are you interested in quitting? Thinking about q uitting Vital Signs Blood pressure systolic 132 mm Hg 12/15/19 25 Blood pressure diastolic 88 mm Hg 025 Height 66 in 12/14/2024 Weight 203.6 lbs 12/14/2024 BMI 32.86 kg/m2 12/14/2024 Encounters Encounter Location Date Provider Diagnosis [facility] [address] [place] [address] 12/14/2024 Birdie Parkinson Right foot pain M79. 671 and Onychomycosis B35.1 Assessments Encounter Date Diagnosis (ICD Code) Assessment Notes Treatment Notes Treatment Clinical Notes Section Notes 12/14/2024 Right foot pain (ICD-10 - M79.671) fu podiatry if needed, referral sheet given 12/14/2024 Onychomycosis (ICD-10 - B35.1) check liver will send antifungal rx after Plan Of Treatment Medication Medication Name Sig Start Date Stop Date Notes predniSONE 20 MG 2 tablet Orally Once a day for 5 days Treatment Notes Assessment Notes Right foot pain fu podiatry if neede d, referral sheet given Onychomycosis check liver will send antifungal rx after Pending Test Test Name Order Date CMP14+eGFR 12/14/2024 Next Appt Details Follow Up: prn, Reason: Progress Notes * MARILEE Keyla AshaDOB: 2 (44 yo F)Acc No.[id number]:12/14/2024 Progress Note Patient: Keyla LORENZO Provider: Yair Parkinson ([facility]), PERSONAL FINANCIAL ADVISOR :1980 A ge:44 Y S ex:Female Date:12/14/2024 Address:[address] [place], [place] [id number] Pcp:Xavier Duque Check In:04:16 PM ESTCheck O ut:04:35 PM EST Subjective: * Chief Complaints: * 1 . 6 days of right foot (top) pain- that boot is a little harder to put on - DH patient. 2. No known injury- has been taking IBU but doesn't touch the pain/burning. 3. Patient states has a toe that is weird - thinks is toenail fungus, has been treating it. * HPI: G eneral: top of foot burning 6 days getting worse worse when walking sitting still helps wore different 4th toe on right toenail fungus CMP. * ROS: G eneral/Constitutional: Fever d enies. H eadache d enies. W eight loss?denies. O phthalmologic: Discharge d enies. E ye Pain d enies. I tching and redness d enies. E NT: Nasal discharge d enies. N lisandra congestion d enies.?Sore throat d enies. C ardiovascular: Chest tightness/ heavy pressure d enies. R apid heart rate d enies. S welling of extremities d enies. C hest pain d enies. ? R espiratory: Productive cough d enies. C hest pain d enies. C ough d enies. S hortness of breath d enies. W heezing d enies. ? G astrointestinal: Abdominal pain d enies. C onstipation d enies. D ecreased appetite d enies. D iarrhea d enies. N ausea d enies. V omiting?denies. G enitourinary: Urinary incontinence d enies. P ainful urination d enies. M usculoskeletal: Foot pain t op of right foot burning. B ack pain d enies. N rosey pain d enies. M uscle aches d enies. S kin: Rash d enies. S kin lesion(s) d enies. ? 4 th toenail on right foot yellow, crumbly. * Active Problem List 729.5 Chronic foot pain Modified On:06/04/2023U Status:confirmed R00.2 Palpitations Modified On:06/04/2023 Status:confirmed F41.9 Anxiety Modified On:06/04/2023U Status:confirmed F17.200 Smoker Modified On:06/04/2023U Status:confirmed L30.9 Eczema Modified On:06/04/2023U Status:confirmed N93.8 DUB (dysfunctional u terine bleeding) Modified On:06/04/2023 Status:confirmed J21.9 Acute bronchiolitis Modified On:07/03/2023 Status:confirmed * Medical History: C hronic foot pain, DUB (dysfunctional uterine bleeding), Palpitations, Smoker, Anxiety, Eczema. * Surgical History: M inerva ebdometrial ablation with hysteroscopy 04/11/2023, x2 . * Hospitalization/Major Diagno stic Procedure: s ee above . * Family History: F ather: , diagnosed with Unspecified heart disease. M other: alive, colon cancer, diagnosed with Other malignant neoplasm of unspecified site. B rother(s): alive. S ister(s): alive. S on(s): alive. D gerardo(s): alive. 1 brother(s) , 2 sister(s) - healthy. 1 son(s) , 1 daughter(s) - healthy. . * Social History: T obacco Use: T obacco Use/Smoking P atient is a c urrent smoker W hen did you start smoking? 0 08/04/1999 H ow many cigarettes a day do you smoke? 1 1-20 H ow soon after you wake up do you smoke your first cigarette? w ithin 5 minutes A re you interested in quitting? T hinking about quitting * Medications: T aking Albuterol Sulfate HFA 108 (90 Base) MCG/ACT Aerosol Solution 2 puff as needed Inhalation every 4 hrs , Discontinued Amoxicillin-Pot Clavulanate 875-125 MG Tablet 1 tablet Orally every 12 hrs , Discontinued Benzonatate 200 MG Capsule 1 capsule as needed Orally Three times a day , Discontinued predniSONE 10 MG Tablet 5 tabs X3 D, 4 tab X3 D, 3 tabs X3 D, 2 tabs X3 D, 1 Tab X3 D, 1/2 tab X4 D Orally Once a day , Medication List reviewed and reconciled with the patient * Allergies: N .K.D.A. Objective: * Vitals: W t:203.6lbs, Ht: 66 in, BP:132/88mm Hg, BMI:32.86Index, Ht-cm: 167.64 cm, Wt-k.35 kg. * Examination: G eneral Examinations: GENERAL APPEARANCE: a lert and oriented, i n no acute distress. EYES: c onjunctiva normal, sclera non-icteric. NOSE: n ormal external appearance. LUNGS: c lear to auscultation bilaterally. CARDIO: r egular rate and rhythm, S1, S2 normal. ABDOMEN: s oft, nontender. MUSCULOSKELETAL: n o redness swelling noted right foot, is tender to touch foot warm, good pulse, good cap refill. SKIN: w arm and dry , yellow thick crumbly toenail , 4th on right. Assessment: * Assessment: 1. R ight foot pain - M79.671 (Primary) 2 . O nychomycosis - B35.1 ? Plan: * Treatment: 2. O nychomycosis L AB: CMP14+eGFR Notes: check liver will send antifungal rx after * Preventive Medicine: Screenings/Counseling: B AR ACTION PLAN Above Normal BMI Follow-up D ietary management education, guidance, and counseling * Follow Up: p rn * * Electronically signed by Jocelynn Parkinson , SENIOR BUSINESS OBJECTS DEVELOPER, ELIGIBILITY MANAGER.PERSONAL FINANCIAL [id number] on 12/16/2024 at 09:03 AM EDT Sign off status: Completed Visit Status: C HK (Check Out) true * Provider: Yair Parkinson ([facility]), PERSONAL FINANCIAL ADVISOR Date: 0 12/14/2024 Generated for [employer]/Lisette/eTransmitting on: 0 02/10/2025 08:24 AM EDT History and Physical Notes * HPI (History of Present Illness) Category Sub-Category Detail Notes Category Not es General top of foot burning 6 days getting worse worse when walking sitting still helps wore different 4th toe on right toenail fungus CMP Examination Category Sub-Category Detail Notes Category Not es General Examinations GENERAL APPEARANCE: alert a nd oriented, in no acute distress EYES: conjunctiva normal, sclera non-icteric EARS: NOSE: normal external appe arance THROAT: CARDIO: regular rate and rhy thm, S1, S2 normal LUNGS: clear to auscultatio n bilaterally ABDOMEN: soft, nontender SKIN: warm and dry , yello w thick crumbly toenail , 4th on right BACK: MUSCULOSKELETAL: no redness swelling noted right foot, is tender to touch foot warm, good pulse, good cap refill LYMPH NODES:
--- OUTSIDE RECORDS SUMMARY | 2025-02-01 13:30 | XMS_ITS | Encounter Summary ---
Author Organization [facility] Address [address] [place] [address] Care Team Providers Care Accessibility Lift Technician Name Role Phone Reji Duque MD Primary Care Provider [phone] Reason for Visit * Reason Comments Pre-op Visit EMBX Encounter Details Date Type Department Care Team (Late st Contact Info) Description 02/01/2025 1:30 PM EDT Procedure [facility] [address] [place] [address] Khadar Hope, DO [address] [facility] [address] [place] [address] Pre-op examination; Dysmenorrhea; Menorrhagia with regular cycle; [...] on 03-02-[address] Hope at [facility]. MEDICATIONS Current Outpatient Medications Medication Instructions albuterol [...] nursing note reviewed. Exam conducted with a bottling line operator present. Vitals: Estimated body mass index is [...] on 03-02-[address] Hope at [facility]. EMBX: Patient was placed in dorsal lithotomy [...] 03/09/2025 8:30 AM EDT [facility] [address] [place] [phone] Adrienne Lutz PA [address] [facility] [place] [address] 04/13/2025 8:30 AM EDT [facility] [address] [place] [phone] Adrienne Lutz PA [address] [facility] [place] [address] 01/18/2026 4:00 PM EDT [facility] [address] [place] [address] [place] [phone] Khadar Hope DO [address] [place] [address] [place] [address] Scheduled Orders Name Type Priority Associated Diagnoses [...] pain documented in this encounter Care Teams Accessibility Lift Technician Relationship Specialty Start Date End Date Reji Duque MD [address] [place] [address] PCP - General Family Medicine 02/10/23 documented as of this encounter
--- OUTSIDE RECORDS SUMMARY | 2025-02-02 20:30 | XMS_ITS | Continuity of Care Document ---
Author Organization [facility] Address [address] [place] [address] Phone Care Team Providers Care Video Game Engineer Name Role Phone Khadar Hope DO Attending Provider Care Teams Patient Care Team Team Status: Inactive Member Role Status Dates Khadar Hope DO Attending Provider Active Start : February 01, 2025 End: February 01, 2025 Chief Complaint and Reason for Visit Chief Complaint Admit Date Unknown February 01, 2025 1:27p m Allergies, Adverse Reactions, Alerts Allergen Type Severity Reaction Last Updated Verified Status No Known Allergies Allergy Unknown Octobe r 2023 11:43am Yes Active Social History Smoking Status Status Start Date End Date Date of Observa tion Smokes tobacco daily (finding) July 31, 2022 11:25am Observation Status Observation Response Date of Response Legal Sex Female (finding) Sex Assigned At Female November Medications Medication Status Dose Units Route Directions Qty Days St art Date Stop Date End Date Instructions Adherence Azithromyci n 250 mg tablet Active 0 PO .COMPLEX 6 Mayobe r 2023 12:00a m For 250 mg dose pack: take 500 mg today (day 1), then 250 mg for 4 days (days 2-5) PO Unknown Methylpredn isolone (Medrol (Montrell)) 4 mg tablets,dos e pack Active 0 PO per package directions 21 Mayobe r 2023 12:00a m PO PER PKG DIR for 6 days Unknown Albuterol Sulfate 90 mcg/actuati on HFA aerosol inhaler Active 2 PUFF INHALA TION Q4H 1 14 Mayobe r 2023 12:00a m Unknown Benzonatate 100 mg capsule Active 100 MG PO Three times daily 21 7 Mayobe r 2023 12:00a m Unknown Advance Directives Advance Directive Response Recorded Date/ Time Advance Directives No May 25, 2024 11:11am Insurance Providers Guarantor Keyla Keith Address [address] [place] [phone] Contact Info. Home Phone: Payer Policy Id Subscriber's Name Subscriber Id Effectiv e Date Expiration Date Anupama VÁSQUEZ/FRANKO [id number] SEP MARILEE [id number] Encounters Encounter Location(s) Arrival/Admit Date Discharge/Depart Date Provider(s) Departed Referred -LAB Path [facility] February 01, 2025 1:27pm February 01, 2025 1:28pm Khadra Hope Plan of Treatment Future Tests Future scheduled test information is unavailable Pending Tests Test Name Ordered Date Scheduled Date Miscellaneous Pathology Test February 01, 2025 12:0 0am Future Visits Future appointment information is unavailable Referrals to Other Providers Referral information is unavailable Future Procedures Procedure Name Ordered Date Scheduled Date Pathology Request for Lab [facility] February 02, 2025 1: 50pm February 01, 2025 12:00am Future Medications Future medication information is unavailable Patient Instructions Patient instructions are unavailable
--- OUTSIDE RECORDS SUMMARY | 2025-02-10 08:23 | XMS_ITS | Encounter Summary ---
Author Organization [facility] Address [address] [facility] [place] [address] Care Team Providers Care Thermite Bomb Loader Name Role Phone Reji Duque MD Primary Care Provider [phone] Encounter Details Date Type Department Care Team (Late st Contact Info) Description 04/18/2023 Abstract [facility] [address] [place] [address] Adrienne Lutz PA [address] [place] [address] [place], [place] [id number] Social History Tobacco Use Types Packs/Day Years [...] AM EDT Sexual Orientation Not on file COVID-19 Exposure Response Date Recorded In the last 10 days, have yo u been in contact with someone who was confirmed or suspected to have Coronavirus/COVID-19? No / Unsure 03/23/2023 7:55 PM EDT documented as of this encounter Plan of Treatment Upcoming Encounters Date Type Department Care Team (Late st Contact Info) Description 03/09/2025 8:30 AM EDT Office Visit [facility] [address] [place] [address] Adrienne Lutz, PA [address] [facility] [place] [address] 04/13/2025 8:30 AM EDT Office Visit [facility] [address] [place] [place] [phone] Adrienne Lutz, PA [address] [facility] [place] [address] 01/18/2026 4:00 PM EDT Office Visit [facility] [address] [place] [address] [place] [phone] Khadar Hope DO [address] [facility] [place] [address] documented as of this encounter Visit Diagnoses Not on filedocumented in this encounter Care Teams Thermite Bomb Loader Relationship Specialty Start Date End Date Reji Duque MD [address] [facility] [place] [address] PCP - General Family Medicine 02/10/23 documented as of this encounter
--- OUTSIDE RECORDS SUMMARY | 2025-02-10 08:24 | XMS_ITS | Encounter Summary ---
Author Organization [facility] Address [address] [facility] [place] [address] Care Team Providers Care Anesthesiologist Assistant Name Role Phone Reji Duque MD Primary Care Provider [phone] Encounter Details Date Type Department Care Team (Late st Contact Info) Description 01/18/2025 Orders Only [facility] [address] [facility] [place] [address] Cathy Kiser LPN [address] [place] [phone] Social History Tobacco Use Types Packs/Day Years [...] on file documented as of this encounter Plan of Treatment Upcoming Encounters Date Type Department Care Team (Late st Contact Info) Description 03/09/2025 8:30 AM EDT Office Visit [facility] [address] [facility] [place] [address] Adrienne Lutz PA [address] [facility] [place] [address] 04/13/2025 8:30 AM EDT Office Visit [facility] [address] [facility] [place] [address] Adrienne Lutz PA [address] [facility] [address] [place], [place] [phone] 01/18/2026 4:00 PM EDT Office Visit [facility] [address] [facility] [place] [address] Khadar Hope, DO [address] [facility] [address] [place], [place] [phone] documented as of this encounter Procedures Procedure Name Priority Date/Time Associated Diagnosis Comments PAP SMEAR Routine 01/04/2025 12:00 AM EDT documented in this encounter Results * Pap Smear (01/04/2025 12:00 AM EDT) Swab Cervical swab / Unknown Khadar Hope DO LAB CYTOLOGY ORDERABLES Final Re sult EXTERNAL LAB documented in this encounter Visit Diagnoses Not on filedocumented in this encounter Care Teams Anesthesiologist Assistant Relationship Specialty Start Date End Date Reji Duque MD [address] [facility] [place] [address] PCP - General Family Medicine 02/10/23 documented as of this encounter
--- OUTSIDE RECORDS SUMMARY | 2025-02-10 08:24 | XMS_ITS | Encounter Summary ---
Author Organization [facility] Address [address] [place] [address] Care Team Providers Care Train Dispatcher Name Role Phone Reji Duque MD Primary Care Provider [phone] Encounter Details Date Type Department Care Team (Late st Contact Info) Description 02/01/2025 External Result Encounter [facility] External Department Unsolicited Khadar Hope DO [address] [facility] [place] [address] Social History Tobacco Use Types Packs/Day Years [...] EDT Office Visit [facility] [address] [facility] [place] [phone] Adrienne Lutz PA [address] [facility] [address] [place], [place] [phone] 04/13/2025 8:30 AM EDT Office Visit [facility] [address] [facility] [place] [address] Adrienne Lutz PA [address] [facility] [place] [address] 01/18/2026 4:00 PM EDT Office Visit [facility] [address] [facility] [place] [address] Khadar Hope, DO [address] [facility] [place] [address] documented as of this encounter Procedures Procedure Name Priority Date/Time Associated Diagnosis Comments PATHOLOGY REQUEST FOR LAB [facility] Routine 02/01/2025 12:00 AM EDT documented in this encounter Results * PATHOLOGY REQUEST FOR LAB [facility] (02/01/2025 12:00 AM EDT) PATHOLOGY REQUEST FOR LAB [facility] 02/09/2025 8:45 AM EDT [facility] Comment:See report. Scanned copy available in EMR. Other Topography unknown / Unknown 02/01/2025 02/02/2025 1:49 PM EDT Narrative [facility] - 02/09/2025 8:45 AM EDT LC SEND OUT- ENDOMETRIUM Khadar Hope DO LAB BLOOD ORDERABLES Final Resul t [facility] [address] [place] [address], [facility] [address] [place] [address] documented in this encounter Visit Diagnoses Not on filedocumented in this encounter Care Teams Train Dispatcher Relationship Specialty Start Date End Date Reji Duque MD [address] [facility] [place] [phone] PCP - General Family Medicine 02/10/23 documented as of this encounter
--- OUTSIDE RECORDS SUMMARY | 2025-02-10 08:24 | XMS_ITS | Patient Health Record ---
Author Organization [facility] [place] Address [address] [place] [address] Care Team Providers Care Director Of Physician Practices Name Role Phone Xavier Duque Primary Care Provider [phone] Birdie Parkinson Unavailable [phone] Allergies No Known Allergies Results Component Value Reference Range Notes CBC AUTO DIFF Reviewed date:11/23/2024 02:27:16 PM Interpretation: Performing Lab: Notes/Report: [facility] , White Blood Count 7.4 4.0-11.0 10 3/uL Red Blood Count 4.30 4.20-5.40 10 6/uL Hemoglobin 14.0 12.0-16.0 g/dL Hematocrit 42.6 36.0-48.0 % Mean Corpuscular Volume 99.1 81.0-99.0 fL Mean Corpuscular Hemoglobin 32.6 26.7-34.0 pg Mean Corpuscular HGB Conc 32.9 29.9-35.2 g/dL Red Cell Distribution Width 12.2 11.0-15.0 % Platelet Count 207 150-450 10 3/uL Mean Platelet Volume 9.4 9.5-13.5 fL Neutrophils Percent Auto 66.0 43.0-75.0 % Lymphocytes Percent Auto 26.2 20.5-60.0 % Monocytes Percent Auto 5.1 1.7-12.0 % Eosinophils Percent Auto 2.3 0.9-7.0 % Basophils Percent Auto 0.3 0.2-2.0 % Immature Granulocytes Pct Auto 0.1 0.0-0.5 % Neutrophils Absolute Auto 4.9 1.4-6.5 10 3/uL Lymphocytes Absolute Auto 1.9 1.2-3.8 10 3/uL Monocytes Absolute Auto 0.4 0.3-0.8 10 3/uL Eosinophils Absolute Auto 0.2 0.0-0.7 10 3/uL Basophils Absolute Auto 0.0 0.0-0.1 10 3/uL Immature Granulocytes Abs Auto 0.01 0.00-0.03 10 3/uL Performing Lab: see note - [facility] FREE T4 Reviewed date:11/23/2024 02:27:16 PM Interpretation: Performing Lab: Notes/Report: [facility] , Free T4 1.03 0.76-1.46 ng/dL Performing Lab: see note - [facility] GLYCOHEMOGLOBIN A1C Reviewed date:11/23/2024 02:27:16 PM Interpretation: Performing Lab: Notes/Report: [facility] , Glycohemoglobin A1C 5.6 4.5-6.2 % ACTION SUGGESTED ADA THERAPEUTIC TARGET < 7.0 ADA RECOMMENDED LIMIT 4.0 - 6.0 > 7.0 Estimated Average Glucose 114 Performing Lab: see note - [facility] PREG QUANT HCG Reviewed date:11/23/2024 02:27:16 PM Interpretation: Performing Lab: Notes/Report: [facility] HCG Quantitative <1 50-500 1-2 WEEKS 10,000-100,000 5-6 WEEKS 1,000-50,000 4-5 WEEKS 15,000-200,000 6-8 WEEKS 10,000-100,000 2-3 MONTHS 500-10,000 3-4 WEEKS 100-5,000 2-3 WEEKS 5-50 0.2-1 WEEK Performing Lab: see note - [facility] TSH Reviewed date:11/23/2024 02:27:16 PM Interpretation: Performing Lab: Notes/Report: [facility] , Thyroid Stimulating Hormone 3.037 0.358-3.740 uIU/mL Performing Lab: see note - [facility] Prothrombin Time INR Reviewed date:11/23/2024 02:27:16 PM Interpretation: Performing Lab: Notes/Report: [facility] , Prothrombin Time 10.2 9.0-11.6 sec INR 0.96 2.5-3.5 FOR PROSTHETIC HEART VALVE REPLACEMENT 2.0-3.0 CONDITIONS NOT LISTED BELOW 2.5-3.5 RECURRENT THROMBOSIS DESIRED INR: Performing Lab: see note ML - [facility] LB PTT Reviewed date:11/23/2024 02:27:16 PM Interpretation: Performing Lab: Notes/Report: [facility] , Partial Thromboplastin Time 25.9 22.3-36.2 sec Performing Lab: see note ML - [facility] LB IGP,Aptima HPV,Age Gdln Reviewed date:01/08/2025 05:22:27 PM Interpretation: Performing Lab: Notes/Report: BRUSH-SPATULA CERVIX [facility] , Age Gdln ACOG Testing Note . 01 =G [facility] [place] <-Panic Low,>-Panic High,A-Abnormal,AA-Cri tical Abnormal TESTS RESULT FLAG UNITS REF RANGE LAB Source.............Cer sari Cotter MD, Age Algo ACOG Kirstie... 30-65 01 L-Low Normal,H-High Normal,LL-Alert Low,HH-Alert High Performed at: [address] [place] [address] FLAG LEGEND: Clinician Provided Cytology Information No. of containers..01 ThinPrep Vial IGP, Aptima HPV, rfx 16/18,45 Note . TESTS RESULT FLAG UNITS REF RANGE LAB detection of premalignant and malignant conditions of the Test Methodology: Note 02 [address] [place] [address] should not be used as the sole means of detecting cervical DIAGNOSIS: 02 Rod Ro, Diamond Setter ([facility]) HPV Genotype Reflex Note 02 <-Panic Low,>-Panic High,A-Abnormal,AA-Cri tical Abnormal [address] [facility] The Pap smear is a screening test designed to aid in the occur. Specimen adequacy: 02 Performed by: 02 the use of an image guided system. Yamila Cotter MD, Note: Note 02 L-Low Normal,H-High Normal,LL-Alert Low,HH-Alert High uterine cervix. It is not a diagnostic procedure and cancer. Both false-positive and false-negative reports do NEGATIVE FOR INTRAEPITHELIAL LESION OR MALIGNANCY. Performed at: Satisfactory for evaluation. No endocervical component is identified. Criteria not met, HPV Genotype not performed. This liquid based ThinPrep(R) pap test was screened with FLAG LEGEND: . 02 HPV Aptima Negative Negative Paralegals: Yamila Cotter MD, Phone: [phone] [address] [place] [phone] This nucleic acid amplification test detects fourteen high- [address] [place] [phone] without differentiation. Performed at: [facility] Performed at: [facility] risk HPV types (16,18,31,33,35,39,45, 51,52,56,58,59,66,68) Paralegals: Yamila Cotter MD, Phone: [phone] Performing Lab: see note LC - [facility] LB US pelvis w/ transvaginal Reviewed date:12/13/2024 02:13:21 PM Interpretation: Performing Lab: Notes/Report: Source Facility: [place] [address] [place] [address] Ultrasound Report Signed Patient: KEYLA HUNT MR#: [id number] : 1980 Acct:[id number] Age/Sex: 44 / F ADM Date: 12/11/24 Loc: US Attending Dr: Jessie Hope D.O. Ordering Physician: Jessie Hope D.O. Date of Service: 12/11/24 Procedure(s): US pelvis w/ transvaginal Accession Number(s): [id number] cc: Jessie Hope D.O.; Reji Duque M.D. [address] [place] [address] Patient Name: KEYLA HUNT MRN: [id number] date: 1980 Sex: F Assigned Patient Location: Current Patient Location: Accession/Order Number: [id number] Exam Date: 12/13/2024 09:53 Report Date: 12/13/2024 [...] Gupta M.D. 12/13/2024 9:58 AM Dictation Location: [place] [address] Electronically authenticated by: [id number] Y Date: 12/13/2024 09:58 Dictated By: Yari Gupta M.D. Signed By: 12/13/24 1001 DD/ 0958 TD/TT: Crew Supervisor: [place] [address] Ultrasound Report Signed Patient: PUSHPA HUNT MR#: [id number] : 1980 Acct:[id number] Age/Sex: 44 / F ADM Date: 12/11/24 Loc: US Attending Dr: Jessie Hope D.O. Ordering Physician: Jessie Hope D.O. Date of Service: 12/11/24 Procedure(s): US pel vis w/ transvaginal Accession Number(s): [id number] cc: Jessie Hope D.O. ; Reji Duque M.D. [address] [address] Patient Name: KEYLA HUNT MRN: [id number] date: 1980 Sex: F Assigned Patient Location: US Current Patient Location: Accession/Order Numb er: [id number] Exam Date: 12/13/2024 09:53 Report Date: 12/13/2024 09:58 At the request of: JESSIE HOPE DO Procedure: US pelvis w/ transvaginal ULTRASOUND PELVIS WI TH TRANSVAGINAL IMAGING COMPARISON: 02/24/2023 CLINICAL DATA: Menorrhagia with irregular cycle. Previous and uterine ablation. Real-time ultrasound evaluation pelvis was performed utilizing both transabdominal and transvaginal approach. TRANSABDOMINAL: The urinary bladder is not fully distended. The uterus is prominent measuring 12.5 x 5.1 x 5.5 cm in size. The endometrial lining is estimated at 6 - 7 m m. A hypoechoic nodular area seen at the fundus posteriorly measurin g 3.3 x 3.1 x 3.5 cm. This [...] cysts. The endometrial lining is not well demonstrate d. The ovaries are also poorly seen. There is no free fluid. U S/US pelvis w/ transvaginal IMPRESSION: PROMINENT UTERUS WIT H SUSPECTED FUNDAL FIBROID. NONVISUALIZATION OF THE LEFT OVARY. UNREMARKABLE RIGHT OVARY. Impression dictated by: Yari Gupta M.D. 12/13/2024 9:58 AM Dictation Location: [place] [address] Electronically authenticated by: [id number] Y Date: 12/13/2024 09:58 Dictated By: Yari Gupta M.D. Signed By: 12/13/24 1001 DD/ 0958 TD/TT: Crew Supervisor: Reason For Referral No Information Medications Medication SIG (Take, Route, Frequency, Duration) [...] interested in quitting? Thinking about q uitting Alcohol Screen (Audit-C) Question Answer Notes Did you have a drink contain ing alcohol in the past year? Yes How often did you have 6 or more drinks on one occasion in the past year? Two to four times a month (2 points) How many drinks did you have on a typical day when you were drinking in the past year? 5 or 6 drinks (2 points) How often did you have a dri nk containing alcohol in the past year? Weekly (3 points) Points 7 Interpretation Positive Problems Problem Type SNOMED Code ICD Code Onset Dates Problem Status W/U Status Risk Notes Problem Pain in limb (45466579) Chronic foot pain (729.5) Active confirmed Problem Palpitations (42362078) Palpitations (R00.2) Active confirmed Problem Anxiety (98143486) Anxiety (F41.9) Active confirmed Problem Smoker (23980657) Smoker (F17.200) Active confi rmed Problem Eczema (89067294) Eczema (L30.9) Active confirm ed Problem Abnormal vaginal bleeding (902675328) DUB (dysfunctional uterine bleeding) (N93.8) Active confirmed Problem Acute bronchiolitis (2247625) Acute bronchiolitis (J21.9) Active confirmed Vital Signs Blood pressure diastolic 88 mm Hg 12/14/2024 Height 66 in 12/14/2024 Blood pressure systolic 132 mm Hg 12/14/2024 Weight 203.6 lbs 12/14/2024 BMI 32.86 kg/m2 12/14/2024 Encounters Encounter Location Date Provider Diagnosis [facility] [address] [place] [address] 12/14/2024 Birdie Parkinson Right foot pain M79. 671 and Onychomycosis B35.1 Assessments Encounter Date Diagnosis (ICD Code) Assessment Notes Treatment Notes Treatment Clinical Notes Section Notes 12/14/2024 Right foot pain (ICD-10 - M79.671) fu podiatry if needed, referral sheet given 12/14/2024 Onychomycosis (ICD-10 - B35.1) check liver will send antifungal rx after Plan Of Treatment Pending Test Test Name Order Date XR Chest PA and Lateral (Routine CXR) * 07/03/2023 [id number] 12/14/2024 Insurance Providers Payer Name Payer Address Payer Phone Subscriber Number Group Number Insured Name Patient Relationship to Insured Coverage Start Date Coverage End Date [employer] PPO PLUS LOCAL PLAN [address] [place] [phone] [id number] Demetria Hunt Spouse - patient is the spouse of the insured 2 Medications Administered Medication Instructions Date of Administration Dosage Notes Dexamethasone, 4mg/mL 07/03/2023 3 mL 12 mg Medical (General) History Medical History History ICD Code Chronic foot pain 729.5 DUB (dysfunctional uterine bleeding) N93 .8 Palpitations R00.2 Smoker F17.200 Anxiety F41.9 Eczema L30.9 Surgical History Surgery Date(Month/Year) Beryl ebdometrial ablation with hyster oscopy 04/11/2023 x2 Hospitalization History Reason Date(Month/Year) see above
--- OUTSIDE RECORDS SUMMARY | 2025-02-10 08:24 | XMS_ITS | Clinical Summary ---
Author Organization [facility] Address [address] [address] Care Team Providers Care Slip Mixer Name Role Phone Reji Duque MD Primary Care Provider [phone] Allergies No known active allergies Medications loratadine (Claritin) 10 MG tablet Take 10 mg by mouth if needed for allergies Active albuterol HFA 90 mcg/act inhaler INHALE 2 PUFFS BY MOUTH EVERY 4 HOURS FOR 14 DAYS 05/25/20 24 025 Discontinued Active Problems Problem Noted Date Diagnosed Date Well woman exam with routine gynecological exam 01/04/2025 Hormone imbalance 01/04/2025 Plantar wart of right foot 02/05/2023 Encounters Date Type Department Care Team Description 02/01/2025 1:30 PM EDT Procedure Visit [facility] [address] [place], [place] [address] [place] [address] Jessie Hope DO Pre-op examination; Dysmenorrhea; Menorrhagia with regular cycle; Dyspareunia in female; Pelvic pain 02/01/2025 External Result Encounter [facility] External Department Unsolicited Jessie Hope DO 01/18/2025 Orders Only [facility] [address] [place] [address] Cathy Kiser LPN 01/04/2025 1:20 PM EDT Office Visit [facility] [address] [place] [address] Jessie Hope DO Well woman exam with routine gynecological exam; Hormone imbalance; Encounter for screening mammogram for malignant neoplasm of breast 01/04/2025 Clinisync Result Encounter [facility] External Department Unsolicited Jessie Hope, DO 01/04/2025 Bamboo flowsheet [facility] [address] [place] [address] Jessie Hope, DO 01/03/2025 Travel 12/13/2024 Clinisync Result Encounter [facility] External Department Unsolicited Jessie Hope, DO 11/23/2024 9:30 AM EDT Office Visit [facility] [address] [place] [address] Jessie Hope, DO Menorrhagia with irregular cycle; Spotting; Hormone imbalance; Menorrhagia with regular cycle 11/23/2024 Clinisync Result Encounter [facility] External Department Unsolicited Jessie Hope, DO 11/23/2024 Bamboo flowsheet [facility] [address] [place] [address] Jessie Hope, DO 11/17/2024 Travel from Last 3 Months Family History Medical History Relation Name Comments Mental illness Father Prostate cancer Maternal Grandfather Cancer Paternal Grandfather Relation Name Status Comments Father Alive Maternal Grandfather Paternal Grandfather Social History Tobacco Use Types Packs/Day Years Used Date Smoking Tobacco: Every Day Cigarettes Tobacco Cessation:Ready to Q uit: No; Counseling Given: Not Answered Comments:Patient smokes 6-10 cigarettes/day after 6-30 minutes [...] AM EDT Sexual Orientation Not on file Last Filed Vital Signs Vital Sign Reading Time Taken Comments Blood Pressure 120/82 02/01/2025 1:30 PM EDT Pulse - - Temperature - - Respiratory Rate - - Oxygen Saturation - - Inhaled Oxygen Concentration - - Weight 90.5 kg (199 lb 8 oz) 02/01/2025 1:30 PM EDT Height 170.2 cm (5' 7 ) 02/10/2023 4:31 PM EDT Body Mass Index 31.25 02/10/2023 4:31 PM EDT Plan of Treatment Upcoming Encounters Date Type Department Care Team (Late st Contact Info) Description 03/09/2025 8:30 AM EDT Office Visit [facility] [address] [place] [address] Adrienne Lutz, PA [address] [place] [address] 04/13/2025 8:30 AM EDT Office Visit [facility] [address] [place] [phone] Adrienne Lutz, PA [address] [place] [address] 01/18/2026 4:00 PM EDT Office Visit [facility] [address] [place] [phone] Jessie Hope DO [address] [place], [place] [id number] Procedures Procedure Name Priority Date/Time Associated Diagnosis Comments POCT , URINE Routine 02/01/2025 1:34 PM EDT Pre-op examination PATHOLOGY REQUEST FOR LAB CARMEN Routine 02/01/2025 12:00 AM EDT IGP,APTIMA HPV,AGE GDLN Routine 01/04/2025 1:35 PM EDT PAP SMEAR Routine 01/04/2025 12:00 AM EDT US PELVIS W/ TRANSVAGINAL 12/13/2024 9:58 AM EDT [facility] APTT Routine 11/23/2024 11:05 AM EDT [facility] PROTHROMBIN TIME INR W/O COUM Routine 11/23/2024 11:05 AM EDT ALL THYROXINE (T4) FREE Routine 11/23/2024 11:05 AM EDT MLR HEMOGLOBIN A1C Routine 11/23/2024 11 :05 AM EDT TBH PREG QUANT HCG Routine 11/23/2024 11 :05 AM EDT ALL THYROID STIM HORMONE Routine 11/23/2024 11:05 AM EDT ALL CBC WITH AUTO DIFF Routine 11/23/2024 11:05 AM EDT POCT URINALYSIS DIPSTICK Routine 11/23/2024 9:45 AM EDT Menorrhagia with irregular cycle Spotting from Last 3 Months Results * POCT , urine manually resulted (02/01/2025 1:34 PM EDT) Preg Test, Ur Negative Negative Urine 02/01/2025 1:34 PM EDT Jessie Herminia DO POINT OF CARE TEST ENTER/EDIT OR DERABLES Final Result * PATHOLOGY REQUEST FOR LAB CARMEN (02/01/2025 12:00 AM EDT) PATHOLOGY REQUEST FOR LAB CARMEN 02/09/2025 8:45 AM EDT [facility] Comment:See report. Scanned copy available in EMR. Other Topography unknown / Unknown 02/01/2025 02/02/2025 1:49 PM EDT Narrative [facility] - 02/09/2025 8:45 AM EDT LC SEND OUT- ENDOMETRIUM Jessie Herminia DO LAB BLOOD ORDERABLES Final Resul t [facility] [address] [place] [address], [facility] [address] [place] [address] * IGP,APTIMA HPV,AGE GDLN (01/04/2025 1:35 PM EDT) [facility] BABS ACOG TESTING Note . [facility] Comment: TESTS RESULT FLAG UNITS REF RANGE LAB Clinician Provided Cytology Information Source.............Cervix No. of containers..01 ThinPrep Vial Dania SALGADO Kirstie... FLAG LEGEND: L-Low Normal,H-High Normal,LL-Alert Low,HH-Alert High <-Panic Low,>-Panic High,A-Abnormal,AA-Critical Abnormal Performed at: 01 =G [address] [address] Yamila Cotter MD, IGP, APTIMA HPV, RFX 16/18,45 Note . [facility] Comment: TESTS RESULT FLAG UNITS REF RANGE LAB DIAGNOSIS: 02 NEGATIVE FOR INTRAEPITHELIAL LESION OR MALIGNANCY. Specimen adequacy: 02 Satisfactory for evaluation. No endocervical component is identified. Performed by: 02 [employer] Lead (ASCP) . 02 Note: Note 02 The Pap smear is a screening test designed to aid in the detection of premalignant and malignant conditions of the uterine cervix. It is not a diagnostic procedure and should not be used as the sole means of detecting cervical cancer. Both false-positive and false-negative reports do occur. Test Methodology: Note 02 This liquid based ThinPrep(R) pap test was screened with the use of an image guided system. HPV Genotype Reflex Note 02 Criteria not met, HPV Genotype not performed. FLAG LEGEND: L-Low Normal,H-High Normal,LL-Alert Low,HH-Alert High <-Panic Low,>-Panic High,A-Abnormal,AA-Critical Abnormal Performed at: [address] [address] Yamila Cotter MD, HPV APTIMA Negative Negative TB Comment: This nucleic acid amplification test detects fourteen high- risk HPV types (16,18,31,33,35,39,45,51,52,56,58,59,66,68) without differentiation. Performed at: =[address] [id number] Dial Polisher: Yamila Cotter MD, Phone: [phone] Performed at: [address] [id number] Dial Polisher: Yamila Cotter MD, Phone: [phone] 01/04/2025 1:35 PM EDT 01/04/2025 8:39 PM EDT Narrative [facility] - 01/07/2025 12:09 PM EDT BRUSH-SPATULA CERVIX us Jessie Herminia DO LAB BLOOD ORDERABLES Final Resul t Performing Organization Address City/[facility]/ZIP Co de Phone Number CALEB TB * Pap Smear (01/04/2025 12:00 AM EDT) Swab Cervical swab / Unknown us Jessie Herminia DO LAB CYTOLOGY ORDERABLES Final Re sult Performing Organization Address City/[facility]/ZIP Co de Phone Number EXTERNAL LAB * US PELVIS W/ TRANSVAGINAL (12/13/2024 9:58 AM EDT) Anatomical Region Laterality Modality Other 12/13/2024 9:58 AM EDT Narrative 12/13/2024 10:01 [place] [address] Ultrasound Report Signed Patient: KEYLA HUNT MR#: [id number] : 1980 Acct:[id number] Age/Sex: 44 / F ADM Date: 12/11/24 Loc: US Attending Dr: Jessie Hope D.O. Ordering Physician: Jessie Hope D.O. Date of Service: 12/11/24 Procedure(s): US pelvis w/ transvaginal Accession Number(s): [id number] cc: Jessie Hope D.O.; Reji Duque M.D. [place] [id number] Patient Name: KEYLA HUNT MRN: [id number] date: 1980 Sex: F Assigned Patient Location: US Current Patient Location: Accession/Order Number: [id number] Exam Date: 12/13/2024 09:53 Report Date: 12/13/2024 [...] Gupta M.D. 12/13/2024 9:58 AM Dictation Location: [place] [address] Electronically authenticated by: [id number] Y Date: 12/13/2024 09:58 Dictated By: Yari Gupta M.D. Signed By: 12/13/24 1001 DD/ 0958 TD/TT: Stitchdown Toe Former: Procedure Note Radiology, Radiologist, MD - 12/13/[address] [address] Ultrasound Report Signed Patient: KEYLA HUNT JMR#: [id number] : 1980Acct:[id number] Age/Sex: 44 / FADM Date: 12/11/24 Loc: US Attending Dr: Jessie Hpoe D.O. Ordering Physician: Jessie Hope D.O. Date of Service: 12/11/24 Procedure(s): US pelvis w/ transvaginal Accession Number(s): [id number] cc: Jessie Hope D.O.; Reji Duque M.D. [place] [id number] Patient Name: KEYLA HUNT MRN: [id number] date: 1980 Sex: F Assigned Patient Location: US Current Patient Location: Accession/Order Number: [id number] Exam Date: 12/13/2024 09:53 Report Date: 12/13/2024 [...] x 5.5 cm in size. The endometrial liningis estimated at 6 - 7 mm. A hypoechoic nodular area seen at the fundus posteriorly measuring 3.3 x 3.1 x 3.5 cm. This may be a fibroid. Theright ovary is identified however the left is not seen. The right ovarymeasures 1.7 x 1.9 x 2.0 cm. There are no adnexal cysts. There is documentationof ovarian blood flow. TRANSVAGINAL: Transvaginal imaging is suboptimal due to the overalluterine size. There are tiny suspected nabothian cysts. The endometrial liningis not well demonstrated. The ovaries are also poorly seen. There is nofree fluid. US/US pelvis w/ transvaginal IMPRESSION: PROMINENT UTERUS WITH SUSPECTED FUNDAL FIBROID. NONVISUALIZATION OF THE LEFT OVARY. UNREMARKABLE RIGHT OVARY. Impression dictated by: Yari Gupta M.D. 12/13/2024 9:58 AM Dictation Location: [place] [address] Electronically authenticated by: [id number] Y Date: 9:58 Dictated By: Yari Gupta M.D. Signed By:12/13/24 1001 DD/ 0958 TD/TT: Stitchdown Toe Former: us Jessie Hope DO [facility] Final Result * [facility] PREG QUANT HCG (11/23/2024 11:05 AM EDT) Pathologist [facility] HCG QUANTITATIVE <1 mIU/mL TB Comment: 5-50 0.2-1 WEEK 50-500 1-2 WEEKS 100-5,000 2-3 WEEKS 500-10,000 3-4 WEEKS 1,000-50,000 4-5 WEEKS 10,000-100,000 5-6 WEEKS 15,000-200,000 6-8 WEEKS 10,000-100,000 2-3 MONTHS 11/23/2024 11:0 5 AM EDT 11/23/2024 11:05 AM EDT Narrative [facility] - 11/23/2024 11:43 AM EDT [facility] Herminia DO CL[facility] Final Result [facility] * [facility] PROTHROMBIN TIME INR W/O COUM (11/23/2024 11:05 AM EDT) [facility] PROTHROMBIN TIME 10.2 9.0 - 11.6 sec TB TB INR 0.96 [facility]H Comment: DESIRED INR: 2.0-3.0 CONDITIONS NOT LISTED BELOW 2.5-3.5 FOR PROSTHETIC HEART VALVE REPLACEMENT 2.5-3.5 RECURRENT THROMBOSIS 11/23/2024 11:0 5 AM EDT 11/23/2024 11:05 AM EDT Narrative [facility] - 11/23/2024 12:21 PM EDT [facility] Herminia DO CLIN[facility] Final Result [facility] * MLR HEMOGLOBIN A1C (11/23/2024 11:05 AM EDT) Pathologist [facility] GLYCOHEMOGLOBIN A1C 5.6 4.5 - 6.2 % TB Comment: ADA RECOMMENDED LIMIT 4.0 - 6.0 ADA THERAPEUTIC TARGET < 7.0 ACTION SUGGESTED > 7.0 ESTIMATED AVERAGE GLUCOSE 114 mg/dL [facility] 11/23/2024 11:0 5 AM EDT 11/23/2024 11:05 AM EDT Narrative [facility] - 11/23/2024 11:44 AM EDT us Jessie Herminia DO [facility] Final Result [facility] TB * [facility] APTT (11/23/2024 11:05 AM EDT) PARTIAL THROMBOPLASTIN TIME 25.9 22.3 - 36.2 sec [facility] 11/23/2024 11:0 5 AM EDT 11/23/2024 11:05 AM EDT Narrative [facility] - 11/23/2024 12:21 PM EDT us Jessie Herminia DO [facility] Final Result Performing Organization Address [facility] Co de Phone Number [facility] TB * ALL THYROXINE (T4) FREE (11/23/2024 11:05 AM EDT) FREE T4 1.03 0.76 - 1.46 ng/dL [facility]H 11/23/2024 11:0 5 AM EDT 11/23/2024 11:05 AM EDT Narrative [facility] - 11/23/2024 12:01 PM EDT us Jessie Herminia DO [facility] Final Result Performing Organization Address City/[facility]/ZIP Co de Phone Number [facility] TB * ALL THYROID STIM HORMONE (11/23/2024 11:05 AM EDT) THYROID STIMULATING HORMONE 3.037 0.358 - 3.740 uIU/mL [facility] 11/23/2024 11:0 5 AM EDT 11/23/2024 11:05 AM EDT Narrative [facility] - 11/23/2024 11:43 AM EDT us Jessie Herminia DO [facility] Final Result [facility] * (ABNORMAL) ALL CBC WITH AUTO DIFF (11/23/2024 11:05 AM EDT) [facility] TB WBC 7.4 4.0 - 11.0 10 3/uL TBH TBH RBC 4.30 4.20 - 5.40 10 6/uL TBH TBH HGB 14.0 12.0 - 16.0 g/dL TBH TBH HCT 42.6 36.0 - 48.0 % TBH TBH MCV 99.1(H) 81.0 - 99.0 fL TBH TBH MCH 32.6 26.7 - 34.0 pg TBH TBH MCHC 32.9 29.9 - 35.2 g/dL TBH TBH RDW 12.2 11.0 - 15.0 % TBH TBH PLT 207 150 - 450 10 3/uL TBH TBH MPV 9.4(L) 9.5 - 13.5 fL TBH NEUTROPHILS PERCENT AUTO 66.0 43.0 - 75.0 % TBH LYMPHOCYTES PERCENT AUTO 26.2 20.5 - 60.0 % TBH MONOCYTES PERCENT AUTO 5.1 1.7 - 12.0 % TBH TBH EO % 2.3 0.9 - 7.0 % TBH BASOPHILS PERCENT AUTO 0.3 0.2 - 2.0 % TBH IMMATURE GRANULOCYTES PCT AUTO 0.1 0.0 - 0.5 % TBH NEUTROPHILS ABSOLUTE AUTO 4.9 1.4 - 6.5 10 3/uL TBH LYMPHOCYTES ABSOLUTE AUTO 1.9 1.2 - 3.8 10 3/uL TBH MONOCYTES ABSOLUTE AUTO 0.4 0.3 - 0.8 10 3/uL TBH TBH EO # 0.2 0.0 - 0.7 10 3/uL TBH BASOPHILS ABSOLUTE AUTO 0.0 0.0 - 0.1 10 3/uL TBH IMMATURE GRANULOCYTES ABS AUTO 0.01 0.00 - 0.03 10 3/uL [facility] 11/23/2024 11:0 5 AM EDT 11/23/2024 11:05 AM EDT Narrative [facility] - 11/23/2024 11:17 AM EDT Jessie Herminia DO CL[facility] Final Result [facility] * (ABNORMAL) POCT urinalysis dipstick manually resulted (11/23/2024 9:45 AM EDT) Color, UA Yellow Clarity, UA Clear Glucose, UA Negative Negative - 2000(110) ++++ mg/dL Bilirubin, UA Negative Negative - 4(70) +++ mg/dL Ketones, UA Negative Negative - 160(16) ++++ mg/dL Spec Grav, UA 1.030 1 - 1.03 Blood, UA Positive Negative - 50 Marvin/mcL Comment:moderate pH, UA 5.5 5 - 9 Protein, UA Trace Negative - 1999(20) ++++ mg/dL Urobilinogen, UA 0.2 0.2 - 12 mg/dL Leukocytes, UA Negative Negative - 500+++ Nilo/mcL Nitrite, UA Negative Negative - Positive Urine 11/23/2024 9:45 AM EDT Jessie Herminia DO POINT OF CARE TEST ENTER/EDIT OR DERABLES Final Result from Last 3 Months Insurance BS Care Teams Slip Mixer Relationship Specialty Start Date End Date Reji Duque MD [address] [place] [address] PCP - General Family Medicine 02/10/23
== END 2025-02-01 08:22 ==
LOC: LAB 08:21
PROVIDERS: PCP Family Medicine; Visit Provider Obstetrics & Gynecology
DX: N92.1 Excessive and frequent menstruation with irregular cycle (principal)

== ENCOUNTER 2025-02-10 15:18 | Outpatient (OUT) | payer BC, SELFPAY ==
--- OUTSIDE RECORDS SUMMARY | 2025-02-01 13:30 | XMS_ITS | Encounter Summary ---
Author Organization [facility] Address [address] [place] [address] Care Team Providers Care Gravel Truck Driver Name Role Phone Reji Duque MD Primary Care Provider [phone] Reason for Visit * Reason Comments Pre-op Visit EMBX Encounter Details Date Type Department Care Team (Late st Contact Info) Description 02/01/2025 1:30 PM EDT Procedure Visit [facility] [address] [place] [address] Khadar Hope, DO [address] [place] [address] Pre-op examination; Dysmenorrhea; Menorrhagia with regular cycle; Dyspareunia in female; Pelvic pain Social History Tobacco Use Types Packs/Day Years Used Date Smoking Tobacco: Every Day Cigarettes Comments:Patient smokes 6-10 cigarettes/day after 6-30 minutes of waking up. Alcohol Use Standard Drinks/Week Comments Yes 0 (1 standard drink = 0.6 oz pur e alcohol) monthly or less Comments No Sex and Gender Information Value Date Recorded Sex Assigned at Female 02/03/2023 8:38 AM EDT Legal Sex Female 8:14 PM EDT Gender Identity Female 02/03/2023 8:38 AM EDT Sexual Orientation Not on file documented as of this encounter Last Filed Vital Signs Vital Sign Reading Time Taken Comments Blood Pressure 120/82 02/01/2025 1:30 PM EDT Pulse - - Temperature - - Respiratory Rate - - Oxygen Saturation - - Inhaled Oxygen Concentration - - Weight 90.5 kg (199 lb 8 oz) 02/01/2025 1:30 PM EDT Height - - Body Mass Index 31.25 02/10/2023 4:31 PM EDT documented in this encounter Progress Notes * Liseth Garcia - 02/01/2025 1:30 PM EDT Reason for Appointment: Patient ID: Keyla Keith is a 44 y.o. female who presents for Pre-op Visit and EMBX Patient presents today for Pre Op/Endometrial Biopsy appointment. Patient is scheduled to undergo Total Abdominal Hysterectomy, possible BSO, possible cystoscopy on 03-02-[address] Hope at [facility]. MEDICATIONS Current Outpatient Medications Medication Instructions albuterol HFA 90 mcg/act inhaler INHALE 2 PUFFS BY MOUTH EVERY 4 HOURS FOR 14 DAYS loratadine (CLARITIN) 10 mg, As needed ALLERGIES No Known Allergies PROBLEMS Active Ambulatory Problems Diagnosis Date Noted Plantar wart of right foot 02/05/2023 Well woman exam with routine gynecological exam 01/04/2025 Hormone imbalance 01/04/2025 Resolved Ambulatory Problems Diagnosis Date Noted No Resolved Ambulatory Problems Past Medical History: Diagnosis Date Breast cancer screening 01/24/2022 Depressive disorder H/O: section HISTORY PAST MEDICAL HISTORY SOCIAL HISTORY Past Medical History: Diagnosis Date Breast cancer screening 01/24/2022 neg Depressive disorder not elsewhere classified H/O: section x2 Social [...] Respiratory: Negative. Cardiovascular: Negative. Gastrointestinal: Negative. Genitourinary: Positive for menstrual problem, pelvic pain and vaginal bleeding. Musculoskeletal: Negative. Skin: Negative. Neurological: Negative. All other systems reviewed and are negative. Hematological: Negative. Endocrine: Negative. Allergic/Immunologic: Negative. OBJECTIVE Objective: Physical Exam Constitutional: Appearance: Normal appearance. She is well-developed. Genitourinary: Vulva normal. Cardiovascular: Rate and Rhythm: Normal rate and [...] nursing note reviewed. Exam conducted with a spring repairer helper hand present. Vitals: Estimated body mass index is 31.7 kg/m?? as calculated from the following: Height as of 02/10/23: 5' 7 . Weight as of 01/04/25: 202 lb 6.4 oz. BP: No LMP recorded (lmp unknown). ASSESSMENT & PLAN ICD-10-CM 1. Pre-op examination Z01.818 2. Dysmenorrhea N94.6 3. Menorrhagia with regular cycle N92.0 4. Dyspareunia in female N94.10 5. Pelvic pain R10.2 PRE-OPERATIVE: Patient presents today for Pre Op/Endometrial Biopsy appointment. Patient is scheduled to undergo Total Abdominal Hysterectomy, possible BSO, possible cystoscopy on 03-02-[address] Hope at [facility]. EMBX: Patient was placed in dorsal lithotomy position with feet in stirrups. A sterile speculum was placed into the vagina and the cervix was visualized. The cervix was grasped with a single tooth tenaculum. The endometrial pipette was placed through the cervix into the uterus, endometrial curettage was performed and sampling was obtained, endometrial curettings were placed in formalin, and single tooth tenaculum was removed. Excellent hemostasis was assured. All instruments were removed from vagina. Follow Up: Patient is to return 1 week post operative and 6 weeks postoperative. Documented by Silvana Clay LPN on behalf of: Khadar Hope DO documented in this encounter Plan of Treatment Upcoming Encounters Date Type Department Care Team (Late st Contact Info) Description 03/09/2025 8:30 AM EDT Office Visit [facility] [address] [place] [phone] Adrienne Lutz PA [address] [place] [address] 04/13/2025 8:30 AM EDT Office Visit [facility] [address] [place] [phone] Adrienne Lutz PA [address] [place] [address] 01/18/2026 4:00 PM EDT Office Visit [facility] OB [address] [place] [address] [place] [phone] Khadar Hope DO [address] [place] [address] [place] [address] Scheduled Orders Name Type Priority Associated Diagnoses Orde r Schedule Biopsy endometrium Procedures Routine Pre-op examination Dysmenorrhea Menorrhagia with regular cycle Dyspareunia in female Pelvic pain Ordered: 02/01/2025 documented as of this encounter Procedures Procedure Name Priority Date/Time Associated Diagnosis Comments POCT , URINE Routine 02/01/2025 1:34 PM EDT Pre-op examination documented in this encounter Results * POCT , urine manually resulted (02/01/2025 1:34 PM EDT) Preg Test, Ur Negative Negative Urine 02/01/2025 1:34 PM EDT us Khadar Hope DO POINT OF CARE TEST ENTER/EDIT OR DERABLES Final Result documented in this encounter Visit Diagnoses Diagnosis Pre-op examination Dysmenorrhea Menorrhagia with regular cycle Dyspareunia in female Pelvic pain documented in this encounter Care Teams Gravel Truck Driver Relationship Specialty Start Date End Date Reji Duque MD [address] [place] [address] PCP - General Family Medicine 02/10/23 documented as of this encounter
--- OUTSIDE RECORDS SUMMARY | 2025-02-10 15:20 | XMS_ITS | Clinical Summary ---
Author Organization [facility] Address [address] [facility] [place] [address] Care Team Providers Care Mixer Operator Hot Metal Name Role Phone Reji Duque MD Primary Care Provider [phone] Allergies No known active allergies Medications loratadine [...] Encounters Date Type Department Care Team Description 02/10/2025 Abstract [facility] [place] [address] [place] [phone] Cathleen Dubon MA 02/01/2025 1:30 PM EDT Procedure Visit [facility] OB [facility] [place] [phone] Jessie Hope DO Pre-op examination; Dysmenorrhea; Menorrhagia with regular cycle; Dyspareunia in female; Pelvic pain 02/01/2025 External Result Encounter [facility] External Department Unsolicited Jessie Hope DO 01/18/2025 Orders Only [facility] [place] [address] [place] [phone] Cathy Kiser LPN 01/04/2025 1:20 PM EDT Office Visit [facility] [address] [place] [address] Jessie Hope, Well woman exam with routine gynecological exam; Hormone imbalance; Encounter for screening mammogram for malignant neoplasm of breast 01/04/2025 Clinisync Result Encounter NOMS External Department Unsolicited Jessie Hope, DO 01/04/2025 Bamboo flowsheet [facility] [address] [place] [address] Jessie Hope, DO 01/03/2025 Travel 12/13/2024 Clinisync Result Encounter NOMS External Department Unsolicited Jessie Hope, DO 11/23/2024 9:30 AM EDT Office Visit [facility] [address] [place] [address] Jessie Hope, Menorrhagia with irregular cycle; Spotting; Hormone imbalance; Menorrhagia with regular cycle 11/23/2024 Clinisync Result Encounter NOMS External Department Unsolicited Jessie Hope, DO 11/23/2024 Bamboo flowsheet [facility] [address] [place] [address] Jessie Hope, DO 11/17/2024 Travel from Last [...] 03/09/2025 8:30 AM EDT Office Visit [facility] OB [address] [place] [phone] Adrienne Lutz PA [address] [place] [address] [place] [address] 04/13/2025 8:30 AM EDT Office Visit [facility] OB [address] [facility] [place] [place] [phone] Adrienne Lutz PA [address] [place] [address] [place] [address] 01/18/2026 4:00 PM EDT Office Visit [facility] OB [address] [place] [phone] Jessie Hope DO [address] [facility] [place] [address] Procedures Procedure Name Priority Date/Time Associated Diagnosis [...] Negative Urine 02/01/2025 1:34 PM EDT Jessie Hope DO POINT OF CARE TEST ENTER/EDIT OR DERABLES Final Result * PATHOLOGY REQUEST FOR LAB CARMEN (02/01/2025 12:00 AM EDT) PATHOLOGY REQUEST FOR LAB CARMEN 02/09/2025 8:45 AM EDT [facility] Comment:See report. Scanned copy available in EMR. Other Topography unknown / Unknown 02/01/2025 02/02/2025 1:49 PM EDT Narrative [facility] 02/09/2025 8:45 AM EDT LC SEND OUT- ENDOMETRIUM us Jessie Hope DO LAB BLOOD ORDERABLES Final Resul t [facility] [address] [place] [address], [facility] [address] [place] [address] * IGP,APTIMA HPV,AGE GDLN (01/04/2025 1:35 PM EDT) AGE GDLN ACOG TESTING Note . [facility] Comment: TESTS RESULT FLAG UNITS REF RANGE LAB Clinician Provided Cytology Information Source.............Cervix No. of containers..01 ThinPrep Vial Age Algo ACOG Kirstie... 30-65 01 FLAG LEGEND: L-Low Normal,H-High Normal,LL-Alert Low,HH-Alert High <-Panic Low,>-Panic High,A-Abnormal,AA-Critical Abnormal Performed at: 01 =[facility] [address] [facility] [place] [address] Yamila Cotter MD, IGP, APTIMA HPV, RFX 16/18,45 Note . [facility] Comment: TESTS RESULT FLAG UNITS REF RANGE LAB DIAGNOSIS: 02 NEGATIVE FOR INTRAEPITHELIAL LESION OR MALIGNANCY. Specimen adequacy: 02 Satisfactory for evaluation. No endocervical component is identified. Performed by: 02 Rod Ro, Consumer Attorney ([facility]) . 02 Note: Note 02 The Pap [...] High <-Panic Low,>-Panic High,A-Abnormal,AA-Critical Abnormal Performed at: [address] [place] [address], [place] [address] Yamila Cotter MD, HPV APTIMA Negative Negative TB Comment: This nucleic acid amplification test detects fourteen high- risk HPV types (16,18,31,33,35,39,45,51,52,56,58,59,66,68) without differentiation. Performed at: =[address] [id number] Sales Porter: Yamila Cotter MD, Phone: [phone] Performed at: [address] [id number] Sales Porter: aYmila Cotter MD, Phone: [phone] 01/04/2025 1:35 PM EDT 01/04/2025 8:39 PM EDT Narrative [facility] - 01/07/2025 12:09 PM EDT BRUSH-SPATULA CERVIX us Jessie Herminia DO LAB BLOOD ORDERABLES Final Resul t [facility] * Pap Smear (01/04/2025 12:00 AM EDT) Swab Cervical swab / Unknown us Jessie Herminia DO LAB CYTOLOGY ORDERABLES Final Re sult EXTERNAL LAB * US PELVIS W/ TRANSVAGINAL (12/13/2024 9:58 AM EDT) Anatomical Region Laterality Modality Other 12/13/2024 9:58 AM EDT Narrative 12/13/2024 10:01 [place] [address] Ultrasound Report Signed Patient: KEYLA HUNT MR#: [id number] : 1980 Acct:[id number] Age/Sex: 44 / F ADM Date: 12/11/24 Loc: US Attending Dr: Jessie Hope D.O. Ordering Physician: Jessie Hope D.O. Date of Service: 12/11/24 Procedure(s): US pelvis w/ transvaginal Accession Number(s): [id number] cc: Jessie Hope D.O.; Reji Duque M.D. The [address] [address] Patient Name: KEYLA HUNT MRN: [id number] date: 1980 Sex: F Assigned Patient Location: US Current Patient Location: Accession/Order Number: [id number] Exam Date: 12/13/2024 09:53 Report Date: 12/13/2024 [...] Gupta M.D. 12/13/2024 9:58 AM Dictation Location: [place] [address] Electronically authenticated by: [id number] Y Date: 12/13/2024 09:58 Dictated By: Yari Gupta M.D. Signed By: 12/13/24 1001 DD/ 0958 TD/TT: Field Education Coordinator: Procedure Note Radiology, Radiologist, MD - 12/13/2024 [place] [address] Ultrasound Report Signed Patient: KEYLA HUNT JMR#: [id number] : 1980Acct:[id number] Age/Sex: 44 / FADM Date: 12/11/24 Loc: US Attending Dr: Jessie Hope D.O. Ordering Physician: Jessie Hope D.O. Date of Service: 12/11/24 Procedure(s): US pelvis w/ transvaginal Accession Number(s): [id number] cc: Jessie Hope D.O.; Reji Duque M.D. [place] [id number] Patient Name: KEYLA HUNT MRN: [id number] date: 1980 Sex: F Assigned Patient Location: US Current Patient Location: Accession/Order Number: [id number] Exam Date: 12/13/2024 09:53 Report Date: 12/13/2024 [...] Gupta M.D. 12/13/2024 9:58 AM Dictation Location: [place] [address] Electronically authenticated by: [id number] Y Date: 9:58 Dictated By: Yari Gupta M.D. Signed By:12/13/24 1001 DD/ 0958 TD/TT: Field Education Coordinator: [facility] Herminia DO [facility] Final Result * [facility] PREG QUANT HCG (11/23/2024 11:05 AM EDT) HCG QUANTITATIVE <1 mIU/mL TB Comment: 5-50 0.2-1 WEEK 50-500 1-2 WEEKS 100-5,000 2-3 WEEKS 500-10,000 3-4 WEEKS 1,000-50,000 4-5 WEEKS 10,000-100,000 5-6 WEEKS 15,000-200,000 6-8 WEEKS 10,000-100,000 2-3 MONTHS 11/23/2024 11:0 5 AM EDT 11/23/2024 11:05 AM EDT Narrative [facility] - 11/23/2024 11:43 AM EDT [facility] DO [facility] Final Result [facility] * [facility] PROTHROMBIN TIME INR W/O COUM (11/23/2024 11:05 AM EDT) Pathologist [facility] PROTHROMBIN TIME 10.2 9.0 - 11.6 sec TB TB INR 0.96 [facility] Comment: DESIRED INR: 2.0-3.0 CONDITIONS NOT LISTED BELOW 2.5-3.5 FOR PROSTHETIC HEART VALVE REPLACEMENT 2.5-3.5 RECURRENT THROMBOSIS 11/23/2024 11:0 5 AM EDT 11/23/2024 11:05 AM EDT Narrative [facility] - 11/23/2024 12:21 PM EDT [facility] DO [facility] Final Result [facility] * MLR HEMOGLOBIN A1C (11/23/2024 11:05 AM EDT) GLYCOHEMOGLOBIN A1C 5.6 4.5 - 6.2 % TB Comment: ADA RECOMMENDED LIMIT 4.0 - 6.0 ADA THERAPEUTIC TARGET < 7.0 ACTION SUGGESTED > 7.0 ESTIMATED AVERAGE GLUCOSE 114 mg/dL [facility] 11/23/2024 11:0 5 AM EDT 11/23/2024 11:05 AM EDT Narrative [facility] - 11/23/2024 11:44 AM EDT Jessie Herminia DO [facility] Final Result [facility] * CCF APTT (11/23/2024 11:05 AM EDT) PARTIAL THROMBOPLASTIN TIME 25.9 22.3 - 36.2 sec [facility] 11/23/2024 11:0 5 AM EDT 11/23/2024 11:05 AM EDT Narrative [facility] - 11/23/2024 12:21 PM EDT Jessie Herminia DO [facility] Final Result Performing Organization Address [facility]/ZIP Co de Phone Number [facility] * ALL THYROXINE (T4) FREE (11/23/2024 11:05 AM EDT) FREE T4 1.03 0.76 - 1.46 ng/dL [facility] 11/23/2024 11:0 5 AM EDT 11/23/2024 11:05 AM EDT Narrative [facility] - 11/23/2024 12:01 PM EDT Jessie Herminia DO [facility] Final Result [facility] * ALL THYROID STIM HORMONE (11/23/2024 11:05 AM EDT) THYROID STIMULATING HORMONE 3.037 0.358 - 3.740 uIU/mL [facility] 11/23/2024 11:0 5 AM EDT 11/23/2024 11:05 AM EDT Narrative [facility] - 11/23/2024 11:43 AM EDT us Jessie Herminia DO [facility] Final Result [facility] * (ABNORMAL) ALL CBC WITH AUTO DIFF (11/23/2024 11:05 AM EDT) TB WBC 7.4 4.0 - 11.0 10 [...] [facility] - 11/23/2024 11:17 AM EDT Jessie Hope DO [facility] Final Result [facility] * (ABNORMAL) POCT urinalysis dipstick manually [...] Positive Urine 11/23/2024 9:45 AM EDT Jessie Hope DO POINT OF CARE TEST ENTER/EDIT OR DERABLES Final Result from Last 3 Months Insurance [facility] Care Teams Mixer Operator Hot Metal Relationship Specialty Start Date End Date Reji Duque MD [address] [place] [phone] PCP - General Family Medicine 02/10/23
--- OUTSIDE RECORDS SUMMARY | 2025-02-10 15:20 | XMS_ITS | Encounter Summary ---
Author Organization [facility] Address [address] [place] [address] Care Team Providers Care Complaint Evaluation Officer Name Role Phone Reji Duque MD Primary Care Provider [phone] Encounter Details Date Type Department Care Team (Late Contact Info) Description 02/10/2025 Abstract [facility] [address] [facility] [address] Cathleen Dubon MA Social History Tobacco Use Types Packs/Day Years [...] EDT Office Visit [facility] [address] [facility] [address] Adrienne Lutz PA [address] [place], [place] [phone] 04/13/2025 8:30 AM EDT Office Visit [facility] OB [address] [facility] [place] [address] Adrienne Lutz PA [address] [facility] [place] [address] 01/18/2026 4:00 PM EDT Office Visit [facility] OB [address] [facility] [place] [address] Khadar Hope DO [address] [facility] [place] [address] documented as of this encounter Visit Diagnoses Not on filedocumented in this encounter Care Teams Complaint Evaluation Officer Relationship Specialty Start Date End Date Reji Duque MD [address] [facility] [place] [address] PCP - General Family Medicine 02/10/23 documented as of this encounter
--- OUTSIDE RECORDS SUMMARY | 2025-02-10 15:20 | XMS_ITS | Encounter Summary ---
Author Organization [facility] Address [address] [place] [facility] [place] [address] Care Team Providers Care Escrow Officer Name Role Phone Reji Duque MD Primary Care Provider [phone] Encounter Details Date Type Department Care Team (Late st Contact Info) Description 04/18/2023 Abstract [facility] OB [address] [facility] [place] [address] Adrienne Lutz PA [address] [place] [address] [place], [place] [phone] Social History Tobacco Use Types Packs/Day Years [...] 03/09/2025 8:30 AM EDT Office Visit [facility] OB [address] [facility] [address] Adrienne Lutz, PA [address] [facility] [place] [address] 04/13/2025 8:30 AM EDT Office Visit [facility] OB [address] [facility] [place] [phone] Adrienne Lutz, PA [address] [facility] [place] [address] 01/18/2026 4:00 PM EDT Office Visit [facility] OB [address] [place] [address] [place] [phone] Khadar Hope DO [address] [facility] [place] [address] documented as of this encounter Visit Diagnoses Not on filedocumented in this encounter Care Teams Escrow Officer Relationship Specialty Start Date End Date Reji Duque MD [address] [facility] [place] [address] PCP - General Family Medicine 02/10/23 documented as of this encounter
--- OUTSIDE RECORDS SUMMARY | 2025-02-10 15:20 | XMS_ITS | Encounter Summary ---
Author Organization [facility] Address [address] [place] [address] Care Team Providers Care Cancer Program Director Name Role Phone Reji Duque MD Primary Care Provider [phone] Encounter Details Date Type Department Care Team (Late st Contact Info) Description 01/18/2025 Orders Only [facility] OB [address] [facility] [address] Cathy Kiser LPN [address] [place] [phone] Social History Tobacco Use Types Packs/Day Years [...] EDT Office Visit [facility] OB [address] [facility] [place] [address] Adrienne Lutz PA [address] [facility] [address] 04/13/2025 8:30 AM EDT Office Visit [facility] OB [address] [facility] [place] [address] Adrienne Lutz PA [address] [facility] [address] [place], [place] [phone] 01/18/2026 4:00 PM EDT Office Visit [facility] OB [address] [facility] [address] Khadar Hope, DO [address] [facility] [address] [place], [place] [phone] documented as of this encounter Procedures Procedure Name Priority Date/Time Associated Diagnosis Comments PAP SMEAR Routine 01/04/2025 12:00 AM EDT documented in this encounter Results * Pap Smear (01/04/2025 12:00 AM EDT) Swab Cervical swab / Unknown Khadar Hope DO LAB CYTOLOGY ORDERABLES Final Re sult EXTERNAL LAB documented in this encounter Visit Diagnoses Not on filedocumented in this encounter Care Teams Cancer Program Director Relationship Specialty Start Date End Date Reji Duque MD [address] [facility] [place] [address] PCP - General Family Medicine 02/10/23 documented as of this encounter
--- OUTSIDE RECORDS SUMMARY | 2025-02-10 15:20 | XMS_ITS | Encounter Summary ---
Author Organization [facility] Address [address] [facility] [place] [address] Care Team Providers Care Steel Loader Name Role Phone Reji Duque MD Primary Care Provider [phone] Encounter Details Date Type Department Care Team (Late st Contact Info) Description 02/01/2025 External Result Encounter [facility] External Department Unsolicited Khadar Hope DO [address] [facility] [place] [address] Social History Tobacco Use Types Packs/Day Years [...] EDT Office Visit [facility] OB [address] [facility] [place] [phone] Adrienne Lutz PA [address] [facility] [address] [place], [place] [phone] 04/13/2025 8:30 AM EDT Office Visit [facility] [address] [facility] [place] [address] Adrienne Lutz PA [address] [facility] [place] [address] 01/18/2026 4:00 PM EDT Office Visit [facility] OB [address] [facility] [place] [address] Khadar Hope, DO [address] [facility] [place] [address] documented as of this encounter Procedures Procedure Name Priority Date/Time Associated Diagnosis Comments PATHOLOGY REQUEST FOR LAB CARMEN Routine 02/01/2025 12:00 AM EDT documented in this encounter Results * PATHOLOGY REQUEST FOR LAB CARMEN (02/01/2025 12:00 AM EDT) PATHOLOGY REQUEST FOR LAB CARMEN 02/09/2025 8:45 AM EDT [facility] Comment:See report. Scanned copy available in EMR. Other Topography unknown / Unknown 02/01/2025 02/02/2025 1:49 PM EDT Narrative [facility] - 02/09/2025 8:45 AM EDT LC SEND OUT- ENDOMETRIUM Khadar Hope DO LAB BLOOD ORDERABLES Final Resul t [facility] [address] [place] [address], [facility] [address] [place] [address] documented in this encounter Visit Diagnoses Not on filedocumented in this encounter Care Teams Steel Loader Relationship Specialty Start Date End Date Reji Duque MD [address] [facility] [place] [phone] PCP - General Family Medicine 02/10/23 documented as of this encounter
--- NOTE | 2025-02-10 15:39 | MM_ITS ---
Patient Name: SALBADOR HUNT MR#: [id number] : 1980 Exam Date: 02/10/2025 Ordering Doctor: DR JESSIE RODRIGUEZ . RADIOLOGY REPORT PROCEDURE: MM TOMOSYNTHESIS SCREENING BI COMPARISON: MG MAMM [place] DIAG W CAD, 08/29/2022. MG MAMM SCREEN 3D [place] CAD, 01/24/2022. INDICATIONS: Screening Calculator Name NCI Breast Cancer Risk Assessment Tool 5 Year Breast Cancer Risk 1.00% Lifetime Breast Cancer Risk 13.20% Personal Breast Cancer No Personal Ovarian Cancer No Treatments None Family Cancers Mother with colon cancer at age 62; Cousin-maternal with breast cancer at age 44. LOCATION: [facility] BREAST COMPOSITION: The breasts are heterogeneously dense, which may obscure small masses. FINDINGS: RIGHT BREAST: No significant suspicious finding. LEFT BREAST: No significant suspicious finding. DIAGNOSTIC CATEGORY 1--NEGATIVE. RECOMMENDATIONS: ROUTINE MAMMOGRAM AND CLINICAL EVALUATION IN 12 MONTHS. PLEASE NOTE: A NORMAL MAMMOGRAM DOES NOT EXCLUDE THE POSSIBILITY OF BREAST CANCER. A CLINICALLY SUSPICIOUS PALPABLE LUMP SHOULD BE BIOPSIED. Dictated by: Jamey Stiles DO on 02/10/2025 at 16:47 Approved by: Jamey Stiles DO on 02/10/2025 at 16:50
== END 2025-02-10 15:19 | disposition home or self-care (01) ==
LOC: MAMMO 15:18
PROVIDERS: PCP Family Medicine; Visit Provider Obstetrics & Gynecology
DX: Z12.31 Encounter for screening mammogram for malignant neoplasm of breast (principal); Z80.0 Family history of malignant neoplasm of digestive organs; Z80.3 Family history of malignant neoplasm of breast
CPT/HCPCS: 77063; 77067

== ENCOUNTER 2025-02-21 09:59 | Outpatient (OUT) | payer BC, SELFPAY ==
--- OUTSIDE RECORDS SUMMARY | 2025-02-21 10:23 | XMS_ITS | CCD ---
Author Organization [facility] Care Team Providers [employer] Consultant Name Role Phone Jody Carey Unavailable ANGEL, DR HARVEY Lloyd Consulting Unavailable LARS ., ADRIENNE Admitting Unavailable LARS ., ADRIENNE Attending Unavailable HOY ., DR GUAJARDO Primary Care Unavailable LARS ., ADRIENNE Consulting Unavailable HOY ., DR GUAJARDO Admitting [...] Unavailable Bennett Duque MD Primary Care Provider [phone] Bennett Duque MD Primary Care Provider Bennett Duque MD Primary Care Provider Jessie Hope DO Attending Provider JESSIE HOPE Attending Unavailable JESSIE HOPE Attending Unavailable JESSIE HOPE Attending Unavailable Jessie Hope Attending Unavailable Jessie Hope Admitting Unavailable Medications Current Medications Medication Drug Class(es) Dates Sig (Normalized) Sig (Original) azithromycin 250 mg oral tablet (2 sources) Macrolide Antimicrobial Start: 05-25-2024 Start: 05-25-2024 Azithromycin A ctive 0 PO .COMPLEX May 25, 2024 12:00am For 250 mg dose pack: take 500 mg today (day 1), then 250 mg for 4 days (days 2-5) PO benzonatate 100 mg oral capsule (2 sources) Non-narcotic Antitussive Start: 05-25-2024 take 1 capsule by mouth three times daily loratadine 10 mg oral tablet (6 sources) loratadine (Claritin) 10 MG tablet Take 10 mg by mouth if needed for allergies Active methylPREDNISolone 4 mg oral tablet (2 sources) Corticosteroid Start: 05-25-2024 take 1 tablet by mouth once Completed/Discontinued Medications Medication Drug Class(es) Dates Sig (Normalized) Sig (Original) [id number] 200 actuat albuterol 0.09 mg/actuat metered dose inhaler (11 sources) beta2-Adrenergic Agonist Start: 05-25-2024 End: 02-01-2025 take 2 puff(s) by mouth every four hours albuterol HFA 90 mcg/act inhaler INHALE 2 PUFFS BY MOUTH EVERY 4 HOURS FOR 14 DAYS 05/25/2024 02/01/2025 Discontinued Start: 05-25-2024 take 1 puff(s) by inhalation e very four hours citalopram 10 mg oral tablet (2 sources) [...] Problem Classification Problem Date Documented Date Episodic/Chronic Abdominal pain (1 source) Pain in pelvis; Translations: [Pelvic and perineal pain] 02-01-2025 Episodic Influenza (1 source) Influenza due to other identified influenza virus with other respiratory manifestations Episodic Menstrual disorders (8 sources) Menometrorrhagia; Translations: [Excessive and frequent menstruation with irregular cycle] 11-23-2024 Chronic Other endocrine disorders (10 sources) Disorder of endocrine system; Translations: [Endocrine disorder, unspecified] Onset: 01-04-2025 11-23-2024 Episodic Other female genital disorders (1 source) Pain in female genitalia on intercourse; Translations: [Unspecified dyspareunia] 02-01-2025 Chronic Other screening for suspected conditions (not mental disorders or infectious disease) (10 sources) Encounter for screening for malignant neoplasm of cervix; Translations: [Encounter for screening mammogram for malignant neoplasm of breast] Onset: 01-24-2022 Episodic Unclassified (3 sources) CONTACT W/AND (SUSP) [...] Mastodynia; Translations: [MASTODYNIA] Onset: 08-29-2022 Episodic Other upper respiratory infections (1 source) Acute recurrent frontal sinusitis; Translations: [ACUTE RECURRENT FRONTAL SINUSITIS] Onset: 04-23-2022 Episodic Residual codes; unclassified (1 source) Family history of malignant neoplasm of digestive organs; Translations: [FAM HX MALIG NEOPLASM DIGESTIV ORGN] Onset: 01-29-2022 Episodic Unclassified (1 source) CONTACT W/AND (SUSP) EXPOS COVID-19; Translations: [CONTACT W/AND (SUSP) EXPOS COVID-19] Onset: 04-22-2022 Viral infection (12 sources) Plantar wart of right foot; Translations: [Plantar wart] Onset: 02-05-2023 02-05-2023 Episodic Results Test Name Value Interpretation Reference Range Facility MM TOMOSYNTHESIS SCREENING B Ion 02-10-[address] [address] Mammography Report Signed Patient: KEYLA KEITH MR#: [id number] : 1980 Acct:[id number] Age/Sex: 44 / F ADM Date: 02/10/25 Loc: MAMMO Attending Dr: Jessie Hope D.O. Ordering Physician: Jessie Hope D.O. Results: Date of Service: 02/10/25 Follow Up: Procedure(s): MM tomosynthesis screening BI Accession Number(s): [id number] cc: Jessie Hope D.O.; Bennett Duque M.D. Patient Name: KEYLA KEITH MR#: [id number] : 1980 Exam Date: 02/10/2025 Ordering Doctor: DR JESSIE HOPE . RADIOLOGY REPORT PROCEDURE: MM TOMOSYNTHESIS SCREENING BI COMPARISON: MG MAMM [place] DIAG W CAD, 08/29/2022. MG MAMM SCREEN 3D [place] CAD, 01/24/2022. INDICATIONS: Screening Calculator Name NCI Breast Cancer Risk Assessment Tool 5 Year Breast Cancer Risk 1.00% Lifetime Breast Cancer Risk 13.20% Personal Breast Cancer No Personal Ovarian Cancer No Treatments None Family Cancers Mother with colon cancer at age 62; Cousin-maternal with breast cancer at age 44. LOCATION: [facility] BREAST COMPOSITION: The breasts are heterogeneously dense, which may obscure small masses. FINDINGS: RIGHT BREAST: No significant suspicious finding. LEFT BREAST: No significant suspicious finding. DIAGNOSTIC CATEGORY 1--NEGATIVE. RECOMMENDATIONS: ROUTINE MAMMOGRAM AND CLINICAL EVALUATION IN 12 MONTHS. PLEASE NOTE: A NORMAL MAMMOGRAM DOES NOT EXCLUDE THE POSSIBILITY OF BREAST CANCER. A CLINICALLY SUSPICIOUS PALPABLE LUMP SHOULD BE BIOPSIED. Dictated by: Jamey Stiles DO on 02/10/2025 at 16:47 Approved by: Jamey Stiles DO on 02/10/2025 at 16:50 Dictated By: Jamey Stiles D.O. Signed By: 02/10/251650 DD/ 49 TD/TT: Bid Clerk: [facility] Radiology, Radiologist, MD - 02/10/[address] [address] Mammography Report Signed Patient: KEYLA KEITH MR#: [id number] : 1980 Acct:[id number] Age/Sex: 44 / F ADM Date: 02/10/25 Loc: MAMMO Attending Dr: Jessie Hope D.O. Ordering Physician: Jessie Hope D.O. Results: Date of Service: 02/10/25 Follow Up: Procedure(s): MM tomosynthesis screening BI Accession Number(s): [id number] cc: Jessie Hope D.O.; Bennett Duque M.D. Patient Name: KEYLA KEITH MR#: [id number] : 1980 Exam Date: 02/10/2025 Ordering Doctor: DR JESSIE HOPE . RADIOLOGY REPORT PROCEDURE: MM TOMOSYNTHESIS SCREENING BI COMPARISON: MG MAMM [place] DIAG W CAD, 08/29/2022. MG MAMM SCREEN 3D [place] CAD, 01/24/2022. INDICATIONS: Screening Calculator Name NCI Breast Cancer Risk Assessment Tool 5 Year Breast Cancer Risk 1.00% Lifetime Breast Cancer Risk 13.20% Personal Breast Cancer No Personal Ovarian Cancer No Treatments None Family Cancers Mother with colon cancer at age 62; Cousin-maternal with breast cancer at age 44. LOCATION: [facility] BREAST COMPOSITION: The breasts are heterogeneously dense, which may obscure small masses. FINDINGS: RIGHT BREAST: No significant suspicious finding. LEFT BREAST: No significant suspicious finding. DIAGNOSTIC CATEGORY 1--NEGATIVE. RECOMMENDATIONS: ROUTINE MAMMOGRAM AND CLINICAL EVALUATION IN 12 MONTHS. PLEASE NOTE: A NORMAL MAMMOGRAM DOES NOT EXCLUDE THE POSSIBILITY OF BREAST CANCER. A CLINICALLY SUSPICIOUS PALPABLE LUMP SHOULD BE BIOPSIED. Dictated by: Jamey Stiles DO on 02/10/2025 at 16:47 Approved by: Jamey Stiles DO on 02/10/2025 at 16:50 Dictated By: Jamey Stlies D.O. Signed By: 02/10/251650 DD/ 49 TD/TT: Bid Clerk: [employer] Radiology Study observation (narrative) [facility] MM TOMOSYNTHESIS SCREENING B IOrdered By: Radiologist Radiology on 02-10-2025 [employer] Work Phone: PATHOLOGY REQUEST FOR LAB CO RPon 02-09-2025 PATHOLOGY REQUEST FOR LAB CARMEN [employer] Comment on above: See report. Scanned copy available in EMR. SEND OUT- [facility] HCG ( test) Ql (U)O rdered By: Cathleen Dubon on 02-01-2025 Interpretation and review of laboratory results Normal [facility] Preg Test, Ur Negative Negative [facility] Pathology Request for Lab Co rpon 02-01-2025 Pathology Request for Lab Carmen Normal [facility] Comment on above: Order Comment: IGLESIA SE ND OUT- ENDOMETRIUM Result Comment: See report. Scanned copy available in EMR. PERFORMED BY: [facility] [address] [place] [address] PATHOLOGIST SUPERVISOR SHEARING ETHAN MEANS M.D. Performed By: #### P ATH TO [facility] #### [facility] [address] IGP,APTIMA HPV,AGE GDLNon AGE GDLN ACOG TESTING Note . [facility] Comment on above: TESTS RESULT FLAG UN ITS REF RANGE LAB Clinician Provided Cytology Information Source.............Cervix No. of containers..01 ThinPrep Vial Age Algo ACOG Kirstie... 30-65 01 FLAG LEGEND: L-Low Normal,H-High Normal,LL-Alert Low,HH-Alert High <-Panic Low,>-Panic High,A-Abnormal,AA-Critical Abnormal Performed at: 01 =G [facility] [address] Yamila Cotter MD, HPV APTIMA Negative Negative [facility] e Comment on above: This nucleic acid am plification test detects fourteen high- risk HPV types (16,18,31,33,35,39,45,51,52,56,58,59,66,68) without differentiation. Performed at: =G - [facility] [id number] [employer] Marketing: Yamila Cotter MD, Phone: [phone] Performed at: - [facility], [place] [id number] [employer] Marketing: Yamila Cotter MD, Phone: [phone] IGP, APTIMA HPV, RFX 16/18,[address] [facility] Comment on above: TESTS RESULT FLAG UN ITS REF RANGE LAB DIAGNOSIS: 02 NEGATIVE FOR INTRAEPITHELIAL LESION OR MALIGNANCY. Specimen adequacy: 02 Satisfactory for evaluation. No endocervical component is identified. Performed by: 02 Rod Ro, Reconciliation Manager (ASCP) . 02 Note: Note 02 The [...] <-Panic Low,>-Panic High,A-Abnormal,AA-Critical Abnormal Performed at: [address] [place] [address] Yamila Cotter MD, BRUSH-SPATULA CERVIX [facility] US PELVIS W/ TRANSVAGINALon 12-13-2024 [place] [address] Ultrasound Report Signed Patient: KEYLA KEITH MR#: [id number] : 1980 Acct:[id number] Age/Sex: 44 / F ADM Date: 12/11/24 Loc: US Attending Dr: Jessie Hope D.O. Ordering Physician: Jessie Hope D.O. Date of Service: 12/11/24 Procedure(s): US pelvis w/ transvaginal Accession Number(s): [id number] cc: Jessie Hope D.O.; Bennett Duque M.D. [address] [address] Patient Name: KEYLA KEITH MRN: [id number] date: 1980 Sex: F Assigned Patient Location: Current Patient Location: Accession/Order Number: [id number] Exam Date: 12/13/2024 09:53 Report Date: 12/13/2024 [...] Gupta M.D. 12/13/2024 9:58 AM Dictation Location: [place] [address] Electronically authenticated by: [id number] Y Date: 12/13/2024 09:58 Dictated By: Yari Gupta M.D. Signed By: 12/13/24 1001 DD/ 0958 TD/TT: Bid Clerk: [facility] Radiology, Radiologist, MD - 12/13/2024 [place] [address] Ultrasound Report Signed Patient: KEYLA KEITH MR#: [id number] : 1980 Acct:[id number] Age/Sex: 44 / F ADM Date: 12/11/24 Loc: US Attending Dr: Jessie Hope D.O. Ordering Physician: Jessie Hope D.O. Date of Service: 12/11/24 Procedure(s): US pelvis w/ transvaginal Accession Number(s): [id number] cc: Jessie Hope D.O.; Bennett Duque M.D. The [address] [address] Patient Name: KEYLA KEITH MRN: [facility]:[id number] date: 1980 Sex: F Assigned Patient Location: US Current Patient Location: Accession/Order Number: [id number] Exam Date: 12/13/2024 09:53 Report Date: 12/13/2024 [...] Gupta M.D. 12/13/2024 9:58 AM Dictation Location: [place] [address] Electronically authenticated by: [id number] Y Date: 12/13/2024 09:58 Dictated By: Yari Gupta M.D. Signed By: 12/13/24 1001 DD/ 0958 TD/TT: Bid Clerk: [facility] Radiology Study observation (narrative) [facility] US PELVIS W/ TRANSVAGINALOrd ered By: Radiologist Radiology on 12-13-2024 [facility] Work Phone: ALL CBC WITH AUTO DIFFon BASOPHILS ABSOLUTE AUTO 0 [facility] Basophils/100 WBC (Bld) 0.3 % 0.2 - 2.0 % [facility] Eosinophils/100 WBC (Bld) 2.3 % 0.9 - 7.0 % [facility] Erythrocyte distribution width (RBC) [Ratio] 12.2 % 11.0 - 15.0 % [facility] Hematocrit (Bld) [Volume fraction] 42.6 % 36.0 - 48.0 % [facility] Hemoglobin (Bld) [Mass/Vol] 14 g/dL 12.0 - 16.0 g/dL [facility] IMMATURE GRANULOCYTES ABS AUTO 0.01 [facility] Immature granulocytes/100 WBC (Bld) 0.1 % 0.0 - 0.5 % [facility] Interpretation and review of laboratory results Abnormal [facility] LYMPHOCYTES ABSOLUTE AUTO 1.9 [facility] Lymphocytes/100 WBC (Bld) 26.2 % 20.5 - 60.0 % [facility] MCH (RBC) [Entitic mass] 32.6 pg 26.7 - 34.[address] [facility] MCHC (RBC) [Mass/Vol] 32.9 g/dL 29.9 - 35.2 g/dL [facility] MCV (RBC) [Entitic vol] 99.1 fL High 81.0 - 99.[address] [facility] MONOCYTES ABSOLUTE AUTO 0.4 N [facility] Monocytes/100 WBC (Bld) 5.1 % 1.7 - 12.0 % [facility] NEUTROPHILS ABSOLUTE AUTO 4.9 [facility] Neutrophils/100 WBC (Bld) 66 % 43.0 - 75.0 % [facility] Platelet mean volume (Bld) [Entitic vol] 9.4 fL Low 9.5 - 13.[address] [facility] TBH EO # 0.2 [facility] TB PLT 207 [facility] e TB RBC 4.3 [facility] e TB WBC 7.4 [facility] e Urinalysis macro (dipstick) panel (U)on 11-23-2024 Bilirubin, UA Negative Negative - 4(70) +++ mg/dL [facility] Blood, UA Positive Negative - 50 Marvin/mcL [facility] Comment on above: moderate Clarity, UA [facility] Color, UA Yellow [facility] e Glucose, UA Negative Negative - 2000(110) ++++ mg/dL [facility] Interpretation and review of laboratory results Abnormal [facility] Ketones, UA Negative Negative - 160(16) ++++ mg/dL [facility] Leukocytes, UA Negative Negative - 500+++ Nilo/mcL [facility] Nitrite, UA Negative Negative - Positive [facility] pH, UA 5.5 5 - 9 [facility] e Protein, UA Trace Negative - 2000(20) ++++ mg/dL [facility] Spec Grav, UA 1.03 1 - 1.03 [facility] Urobilinogen, UA 0.2 0.2 - 12 mg/dL [facility] Cytology Cervical or vaginal smear or scraping studyOrdered By: Cathleen Dubon on 03-14-2023 [facility] e CBC AUTO DIFFon 08-29-2022 BASO # 0.0 103/ul Normal 0.0-0.1 [facility] Comment on above: Performed By: #### C BC ####[facility] [address] [place], [place] [address]Dr. Manuel Fair Basophils/100 WBC (Bld) 0.2 % Normal 0.2-2.0 [facility] Comment on above: Performed By: #### C BC ####[facility] [address] [place], [place] [address]Dr. Manuel Fair EO # 0.2 103/ul Normal 0.0-0.7 [facility] Comment on above: Performed By: #### C BC ####[facility] [address] [place], [place] [address]Dr. Manuel Fair Eosinophils/100 WBC (Bld) 2.9 % Normal 0.9-7.0 [facility] Comment on above: Performed By: #### C BC ####[facility] [address] [place], [place] [address]Dr. Manuel Fair Erythrocyte distribution width (RBC) [Ratio] 12.2 % Normal 11.0-15.0 [facility] Comment on above: Performed By: #### C BC ####[facility] [address] [place], [place] [address]Dr. Manuel Fair Hematocrit (Bld) [Volume fraction] 44.2 % Normal 36.0-48.0 [facility] Comment on above: Performed By: #### C BC ####[facility] [address] [place] [address]Dr. Manuel Fair Hemoglobin (Bld) [Mass/Vol] 13.2 g/dL Normal 12.0-16.0 [facility] Comment on above: Performed By: #### C BC ####[facility] [address] [place] [address]Dr. Manuel Fair IG # 0.01 10e3/ul Normal 0.00-0.03 [facility] Comment on above: Performed By: #### C BC ####[facility] [address] [place] [address]Dr. Manuel Fair IG % 0.2 % Normal 0.0-0.5 [facility] Comment on above: Performed By: #### C BC ####[facility] [address] [place] [address]Dr. Manuel Fair LYMPH # 2.1 103/ul Normal 1.2-3.8 [facility] Comment on above: Performed By: #### C BC ####[facility] [address] [place] [address]Dr. Manuel Fair Lymphocytes/100 WBC (Bld) 33.7 % Normal 20.5-60.0 [facility] Comment on above: Performed By: #### C BC ####[facility] [address] [place] [address]Dr. Manuel Fair MANUAL DIFF REQ NO Normal [facility] Comment on above: Performed By: #### C BC ####[facility] [address] [place] [address]Dr. Manuel Fair MCH (RBC) [Entitic mass] 32.1 pg Normal 26.7-34.0 [facility] Comment on above: Performed By: #### C BC ####[facility] [address] [place] [address]Dr. Manuel Fair MCHC (RBC) [Mass/Vol] 29.9 g/dL Normal 29.9-35.2 [facility] Comment on above: Performed By: #### C BC ####[facility] [address] [place] [address]Dr. Manuel Fair MCV (RBC) [Entitic vol] 107.5 fL Critically high 81.0-99 .0 [facility] Comment on above: Performed By: #### C BC ####[facility] [address] [place] [address]Dr. Manuel Fair MONO # 0.3 103/ul Normal 0.3-0.8 [facility] Comment on above: Performed By: #### C BC ####[facility] [address] [place] [address]Dr. Manuel Fair Monocytes/100 WBC (Bld) 5.2 % Normal 1.7-12.0 [facility] Comment on above: Performed By: #### C BC ####[facility] [address] [place], [place] [address]Dr. Manuel Fair NEUT # 3.5 103/ul Normal 1.4-6.5 [facility] Comment on above: Performed By: #### C BC ####[facility] [address] [place], [place] [address]Dr. Manuel Fair Neutrophils/100 WBC (Bld) 57.8 % Normal 43.0-75.0 [facility] Comment on above: Performed By: #### C BC ####[facility] [address] [place], [place] [address]Dr. Manuel Fair Platelet mean volume (Bld) [Entitic vol] 9.8 fL Normal 9.5-13.5 [facility] Comment on above: Performed By: #### C BC ####[facility] [address] [place] [address]Dr. Manuel Fair PLT 214 103/ul Normal 150-450 [facility] Comment on above: Performed By: #### C BC ####[facility] [address] [place] [address]Dr. Manuel Marv RBC 4.11 106/ul Critically low 4.20-5.40 [facility] Comment on above: Performed By: #### C BC ####[facility] [address] [place], [place] [address]Dr. Manuel Fair WBC 6.1 103/ul Normal 4.0-11.0 [facility] Comment on above: Performed By: #### C BC ####[facility] [address] [place], [place] [address]XpDr. Manuel Fair FREE THYROXINE INDEX T7on FTI 2.56 Normal 1.30-4.50 [facility] Comment on above: Performed By: #### T 7, TSH, LIPID, CMP #### [facility] [address] [place] [address] [address] Manuel Fair T3U 36.0 % Normal 30.0-39.0 [facility] Comment on above: Performed By: #### T 7, TSH, LIPID, CMP #### [facility] [address] [place] [address] [address] Manuel Fair T4 [Mass/Vol] 7.10 ug/dL Normal 4.80-13.90 [facility] Comment on above: Performed By: #### T 7, TSH, LIPID, CMP #### [facility] [address] [place] [address] [address] Manuel Fair GLYCOHEMOGLOBIN A1Con 2022 ADA RECOMMENDATION SEE BELOW Normal [facility] Comment on above: Result Comment: ADA RECOMMENDED LIMIT 4.0 - 6.0 ADA THERAPEUTIC TARGET < 7.0 ACTION SUGGESTED > 7.0 Performed By: #### A 1C #### [facility] [address] [place] [address] [address] Manuel Fair Glucose [Mass/Vol] 111 mg/dL Normal [facility] Comment on above: Performed By: #### A 1C #### [facility] [address] [place] [address] [address] Manuel Fair HbA1c (Bld) [Mass fraction] 5.5 % Normal 4.5-6.2 [facility] Comment on above: Performed By: #### A 1C #### [facility] [address] [place] [address] [address] Manuel Fair LIPID PROFILEon 08-29-2022 CHOL-HDL RATIO NORM SEE BELOW Normal [facility] Comment on above: Result Comment: 3.3 - 4.4 LOW RISK 4.4 - 7.1 AVERAGE RISK 7.1 - 11.0 MODERATE RISK >11.0 HIGH RISK Performed By: #### T 7, TSH, LIPID, CMP #### [facility] [address] [place] [address] [address] Manuel Fair Cholesterol [Mass/Vol] 183 mg/dL Normal <=200 [facility] Comment on above: Performed By: #### T 7, TSH, LIPID, CMP #### [facility] [address] [place] [address] [address] Manuel Fair Cholesterol in HDL [Mass/Vol] 44 mg/dL Normal 40-60 [facility] Comment on above: Performed By: #### T 7, TSH, LIPID, CMP #### [facility] [address] [place] [address] Dr. Manuel Fair Cholesterol in LDL [Mass/Vol] 111.2 mg/dL Normal [facility] Comment on above: Performed By: #### T 7, TSH, LIPID, CMP #### [facility] [address] [place] [address] [address] Manuel Fair Cholesterol.total/Lucina sterol in HDL [Mass ratio] 4.2 {ratio} Normal [facility] Comment on above: Performed By: #### T 7, TSH, LIPID, CMP #### [facility] [address] [place] [address] [address] Manuel Fair HDL NORMAL > or = 60 mg/dl - LOW CARDIOVASCULAR RISK <40 mg/dl - HIGH CARDIOVASCULAR RISK Normal [facility] Comment on above: Performed By: #### T 7, TSH, LIPID, CMP #### [facility] [address] [place] [address] Dr. Manuel Fair LDL CALC NORMAL SEE BELOW Normal [facility] Comment on above: Result Comment: <100 mg/dl OPTIMAL 100 - 129 mg/dl NEAR OR ABOVE OPTIMAL 130 - 159 mg/dl BORDERLINE HIGH 160 - 189 mg/dl HIGH >190 mg/dl VERY HIGH Performed By: #### T 7, TSH, LIPID, CMP #### [facility] [address] [place], [place] [address] Dr. Manuel Fair Triglyceride [Mass/Vol] 139 mg/dL Normal <=150 T [facility] Comment on above: Performed By: #### T 7, TSH, LIPID, CMP #### [facility] [address] [place], [place] [address] Dr. Manuel Fair VLDL CALC 27.8 mg/dL Normal [facility] Comment on above: Performed By: #### T 7, TSH, LIPID, CMP #### [facility] [address] [place], [place] [address] Dr. Manuel Fair MG MAMM [place] DIAG W CADon MG MAMM [place] DIAG W CAD Patient: KEYLA KEITH Exam Date: 08/29/2022 : 1980 Gender:F Ordering : PRERNA SOUSA . Admission #: [id number] Family : DR JESSIE HOPE . Order #: [id number] CLICK HERE TO VIEW EXAM RADIOLOGY REPORT [...] colon cancer at age 63. LOCATION: [facility] BREAST COMPOSITION: Heterogeneously dense,which may obscure [...] M.D. on 08/29/2022 at 10:34 Normal [facility] PROF 14(COMP METB)on 08-29- 023 Albumin [Mass/Vol] 3.7 g/dL Normal 3.4-5.0 [facility] Comment on above: Performed By: #### T 7, TSH, LIPID, CMP #### [facility] [address] [place] [address] Dr. Manuel Fair Albumin/Globulin [Mass ratio] 1.1 {ratio} Normal [facility] Comment on above: Performed By: #### T 7, TSH, LIPID, CMP #### [facility] [address] [place] [address] Dr. Manuel Fair ALP [Catalytic activity/Vol] 73 U/L Normal 46-116 [facility] Comment on above: Performed By: #### T 7, TSH, LIPID, CMP #### [facility] [address] [place] [address] Dr. Manuel Fair ALT [Catalytic activity/Vol] 21 U/L Normal 14-59 [facility] Comment on above: Performed By: #### T 7, TSH, LIPID, CMP #### [facility] [address] [address] [address] Manuel Fair Anion gap [Moles/Vol] 11.1 mmol/L Normal [facility] Comment on above: Performed By: #### T 7, TSH, LIPID, CMP #### [facility] [address] [place] [address] Dr. Manuel Fair AST [Catalytic activity/Vol] 15 U/L Normal 15-37 [facility] Comment on above: Performed By: #### T 7, TSH, LIPID, CMP #### [facility] [address] [place] [address] Dr. Manuel Fair Bilirubin [Mass/Vol] 0.4 mg/dL Normal 0.2-1.0 [facility] Comment on above: Performed By: #### T 7, TSH, LIPID, CMP #### [facility] [address] [place] [address] Dr. Manuel Fair Calcium [Mass/Vol] 8.9 mg/dL Normal 8.5-10.1 [facility] Comment on above: Performed By: #### T 7, TSH, LIPID, CMP #### [facility] [address] [place] [address] Dr. Manuel Fair Chloride [Moles/Vol] 103 mmol/L Normal 98-107 [facility] Comment on above: Performed By: #### T 7, TSH, LIPID, CMP #### [facility] [address] [place] [address] Dr. Manuel Fair CO2 [Moles/Vol] 29.8 mmol/L Normal 21.0-32.0 [facility] Comment on above: Performed By: #### T 7, TSH, LIPID, CMP #### [facility] [address] [place] [address] Dr. Manuel Fair Creatinine [Mass/Vol] 0.60 mg/dL Normal 0.55-1.02 [facility] Comment on above: Performed By: #### T 7, TSH, LIPID, CMP #### [facility] [address] [place] [address] Dr. Manuel Fair EGFR-AF MALAYSIAN >60 Normal >=60 [facility] Comment on above: Performed By: #### T 7, TSH, LIPID, CMP #### [facility] [address] [place] [address] Dr. Manuel Fair EGFR-NON AF MALAYSIAN >60 Normal >=60 [facility] Comment on above: Performed By: #### T 7, TSH, LIPID, CMP #### [facility] [address] [place] [address] Dr. Manuel Fair Globulin (S) [Mass/Vol] 3.3 g/dL Normal [facility] Comment on above: Performed By: #### T 7, TSH, LIPID, CMP #### [facility] [address] [place] [address] Dr. Manuel Fair Glucose [Mass/Vol] 91 mg/dL Normal 74-106 [facility] Comment on above: Performed By: #### T 7, TSH, LIPID, CMP #### [facility] [address] [place] [address] Dr. Manuel Fair Potassium [Moles/Vol] 3.9 mmol/L Normal 3.5-5.1 [facility] Comment on above: Performed By: #### T 7, TSH, LIPID, CMP #### [facility] [address] [place] [address] Dr. Manuel Fair Protein [Mass/Vol] 7.0 g/dL Normal 6.4-8.2 [facility] Comment on above: Performed By: #### T 7, TSH, LIPID, CMP #### [facility] [address] [place] [address] Dr. Manuel Fair Sodium [Moles/Vol] 140 mmol/L Normal 136-145 [facility] Comment on above: Performed By: #### T 7, TSH, LIPID, CMP #### [facility] [address] [place] [address] Dr. Manuel Fair Urea nitrogen [Mass/Vol] 9.0 mg/dL Normal 7.0-18.0 [facility] Comment on above: Performed By: #### T 7, TSH, LIPID, CMP #### [facility] [address] [place] [address] Dr. Manuel Fair Urea nitrogen/Creatinine [Mass ratio] 15.0 mg/mg Normal [facility] Comment on above: Performed By: #### T 7, TSH, LIPID, CMP #### [facility] [address] [place] [address] Dr. Manuel Fair TSHon 08-29-2022 TSH 2.065 uIU/mL Normal 0.358-3.740 [facility] Comment on above: Performed By: #### T 7, TSH, LIPID, CMP #### [facility] [address] [place] [address] Dr. Manuel Fair US BREAST LEFT LIMITEDon US BREAST LEFT LIMITED Patient: KEYLA KEITH Exam Date: 08/29/2022 : 1980 Gender:F Ordering : PRERNA SOUSA . Admission #: [id number] Family : DR ROMAN HERMINIA . Order #: [id number] CLICK HERE TO VIEW EXAM RADIOLOGY REPORT [...] colon cancer at age 63. LOCATION: [facility] BREAST COMPOSITION: Heterogeneously dense,which may obscure [...] M.D. on 08/29/2022 at 10:34 Normal [facility] COVID/FLU/RSV RT-PCRon 07-31 SARS-CoV-2 (COVID-19) RNA WAYNE+probe Ql (Unsp spec) Negative [employer] Other COVID/FLU/[facility] [employer] Other COVID/FLU/RSV RT-PCR Negative [facility] Other Covid-19 PCR ([facility])on 04-04 SARS-CoV-2 (COVID-19) RNA WAYNE+probe Ql (Unsp spec) Not detected Normal NOT DETECTED [facility] Comment on above: Result Comment: This test is not yet approved or cleared by the [place] FDA. When there are no FDA-approved or cleared tests available, and other criteria are met, FDA can make tests available under an emergency access mechanism called an Emergency Use Authorization (EUA). The EUA for this test is supported by the Venereal Disease Control Head of Health and Human Service's (HHS's) declaration [...] SARS-CoV-2. Performed By: #### C VDTBH #### [facility] [address] [place] [address] Dr. Manuel Fair PAP ACOG PANEL 2: 30 to 65on 02-09-2022 . . Normal [facility] Comment on above: Result Comment: Perf ormed at: WB Performed By: #### [id number] #### [facility] [address] [place] [address] Dr. Manuel Fair Age Gdln ACOG Testing - Normal [facility] Comment on above: Performed By: #### [id number] #### [facility] [address] [place] [address] Dr. Manuel Fair DIAGNOSIS: Comment Normal [facility] Comment on above: Result Comment: NEGA TIVE FOR INTRAEPITHELIAL LESION OR MALIGNANCY. Performed at: WB Performed By: #### [id number] #### [facility] [address] [place] [address] Dr. Manuel Fair HPV Aptima Negative Normal Negative [facility] Comment on above: Result Comment: This nucleic acid amplification test detects fourteen high-risk HPV types (16,18,31,33,35,39,45,51,52,56,58,59,66,68) without differentiation. Performed at: =G Performed By: #### [id number] #### [facility] [address] [place] [address] Dr. Manuel Fair Methodology: Comment Normal [facility] Comment on above: Result Comment: This liquid based ThinPrep(R) pap test was screened with the use of an image guided system. Performed at: WB Performed By: #### [id number] #### [facility] [address] [place] [address] Dr. Manuel Fair Note: Comment Normal [facility] Comment on above: Result Comment: The Pap smear is a screening test designed to aid in the detection of premalignant and malignant conditions of the uterine cervix. It is not a diagnostic procedure and should not be used as the sole means of detecting cervical cancer. Both false-positive and false-negative reports do occur. . Performed at: WB Performed By: #### [id number] #### [facility] [address] [place] [address] Dr. Manuel Fair Performed by: Comment Normal [facility] Comment on above: Result Comment: Michael Armendariz Game Protector (ASCP) Performed at: WB Performed By: #### [id number] #### [facility] [address] [place] [address] Dr. Manuel Fair Specimen adequacy: Comment Normal [facility] Comment on above: Result Comment: Sati sfactory for evaluation. No endocervical component is identified. Performed at: WB Performed By: #### [id number] #### [facility] [address] [place] [address] Dr. Manuel Fair MG MAMM SCREEN 3D [place] CADon 01-24-2022 MG MAMM SCREEN 3D [place] CAD Patient: KEYLA KEITH Exam Date: 01/24/2022 : 1980 Gender:F Ordering : DR JESSIE HOPE . Admission #: [id number] Family : DR BENNETT DUQUE . Order #: [id number] CLICK HERE TO VIEW EXAM RADIOLOGY REPORT PROCEDURE: MAMMOGRAM SCREENING 3D BILATERAL CAD COMPARISON: None. INDICATIONS: Screening mammography Calculator Name NCI Breast Cancer Risk Assessment Tool 5 Year Breast Cancer Risk 0.80% Lifetime Breast Cancer Risk 13.60% Personal Breast Cancer No Personal Ovarian Cancer No Treatments None Family Cancers Mother with colon cancer at age 62. LOCATION: [facility] BREAST COMPOSITION: Heterogeneously dense,which may obscure [...] Marte M.D. on 01/25/2022 at 13:56 Normal [facility] Vital Signs Date Time Vital Sign Value Performing Clinician Facility 02-01-2025 13:30-0400 Body mass index (BMI) [Ratio] 31.25 kg/m2 Jessie Herminia DO Work Phone: [facility] 02-01-2025 13:30-0400 Body weight 90.49 kg Jessie Herminia DO Work Phone: [facility] 02-01-2025 13:30-0400 Diastolic blood pressure 82 mm[Hg] Jessie Herminia DO Work Phone: [facility] 02-01-2025 13:30-0400 Systolic blood pressure 120 mm[Hg] Jessie Herminia DO Work Phone: [facility] 01-04-2025 13:47-0400 Body mass index (BMI) [Ratio] 31.7 kg/m2 Jessie Herminia DO Work Phone: [facility] 01-04-2025 13:47-0400 Body weight 91.81 kg Jessie Herminia DO Work Phone: [facility] 01-04-2025 13:47-0400 Diastolic blood pressure 80 mm[Hg] Jessie Herminia DO Work Phone: [facility] 01-04-2025 13:47-0400 Systolic blood pressure 122 mm[Hg] Jessie Herminia DO Work Phone: [facility] 11-23-2024 09:31-0400 Body mass index (BMI) [Ratio] 32.11 kg/m2 Jessie Herminia DO Work Phone: [facility] 11-23-2024 09:31-0400 Body weight 92.99 kg Jessie Herminia DO Work Phone: [facility] 11-23-2024 09:31-0400 Diastolic blood pressure 78 mm[Hg] Jessie Herminia DO Work Phone: [facility] 11-23-2024 09:31-0400 Systolic blood pressure 122 mm[Hg] Jessie Herminia DO Work Phone: [facility] 05-25-2024 11:52-0400 Body height 170.18 cm [facility] 05-25-2024 11:52-0400 Body mass index (BMI) [Ratio] 32.4 kg/m2 [facility] 05-25-2024 11:52-0400 Body temperature 97.5 [degF] [facility] 05-25-2024 11:52-0400 Body weight 93.89 kg [facility] 05-25-2024 11:52-0400 Diastolic blood pressure 83 mm[Hg] [facility] 05-25-2024 11:52-0400 Heart rate 91 /min [facility] 05-25-2024 11:52-0400 Respiratory rate 18 /min [facility] 05-25-2024 11:52-0400 SaO2% (BldA) [Mass fraction] 98 % [facility] 05-25-2024 11:52-0400 Systolic blood pressure 134 mm[Hg] [facility] 07-31-2022 12:15-0500 Body height 167.64 cm Jody Carey Other [facility] Other 07-31-2022 12:15-0500 Body mass index (BMI) [Ratio] 32.28 kg/m2 Jody Carey Other [facility] Other 07-31-2022 12:15-0500 Body temperature 97.3 [degF] Jody Carey Other [facility] Other 07-31-2022 12:15-0500 Body weight 90.72 kg Jody Carey Other [facility] Other 07-31-2022 12:15-0500 Respiratory rate 18 /min Jody Carey Other [facility] Other 07-31-2022 12:15-0500 SaO2% (BldA) [Mass fraction] 98 % Jody Carey Other [facility] Other Encounters Encounter Date Encounter Type Care Provider Facility Start: 02-10-2025 End: 02-10-2025 Clinisync Result Encounter Jessie Herminia DO Work Phone: [facility] Unsolicited Start: 02-10-2025 End: 02-10-2025 Clinisync Result Encounter Jessie Herminia DO Work Phone: [facility] Unsolicited Start: 02-01-2025 End: 02-09-2025 External Result Encounter Jessie Herminia DO Work Phone: [facility] Unsolicited Start: 02-01-2025 End: 02-09-2025 External Result Encounter Jessie Herminia DO Work Phone: [facility] Unsolicited Start: 02-01-2025 End: 02-01-2025 Patient encounter procedure Jessie Herminia DO Work Phone: [facility] Comment on above: Pre-op examination; Dysmenorrhea; Menorrhagia with regular cycle; Dyspareunia in female; Pelvic pain Start: 02-01-2025 End: 02-01-2025 Preprocedural examination done Jessie Herminia DO Work Phone: [facility] Start: 02-01-2025 End: 02-01-2025 Departed Referred Jessie Herminia -LAB [facility] Start: 02-01-2025 End: 02-01-2025 ambulatory JESSIE HERMINIA [facility] Work Phone: Start: 01-04-2025 End: 01-04-2025 Bamboo flowsheet Jessie Herminia DO Work Phone: [facility] Start: 01-04-2025 End: 01-07-2025 Bamboo flowsheet Jessie Herminia DO Work Phone: [facility] Start: 01-04-2025 End: 01-07-2025 Clinisync Result Encounter Jessie Herminia DO Work Phone: [facility] Unsolicited Start: 01-04-2025 End: 01-04-2025 Patient encounter procedure Jessie Herminia DO Work Phone: [facility] Start: 01-04-2025 End: 01-04-2025 Periodic preventive med est patient 40-64yrs Jessie Herminia DO Work Phone: [facility] Comment on above: Well woman exam with routine gynecological exam; Hormone imbalance; Encounter for screening mammogram for malignant neoplasm of breast Start: 01-04-2025 End: 01-04-2025 ambulatory JESSIE HERMINIA Not Available Start: 12-13-2024 End: 12-13-2024 Clinisync Result Encounter Jessie Herminia DO Work Phone: [facility] Unsolicited Start: 12-13-2024 End: 12-13-2024 [...] 11-23-2024 Office outpatient visit 15 minutes Jessie Hope DO Work Phone: [facility] Comment on above: Menorrhagia with irr egular cycle; Spotting; Hormone imbalance; Menorrhagia with regular cycle Start: 11-23-2024 End: 11-23-2024 ambulatory JESSIE HOPE Not Available Start: 05-25-2024 End: 05-25-2024 ambulatory [facility] Work Phone: Start: 05-25-2024 End: 05-25-2024 Patient encounter procedure [facility] Work Phone: Start: 08-30-2022 Encounter for genera l adult medical examination without abnormal findings DR BENNETT DUQUE . [facility] Start: 08-29-2022 End: 08-30-[address] HARVEY MARTE Facility:[facility] Start: 08-29-2022 End: 08-30-2022 Encounter for general adult medical examination without abnormal findings DR BENNETT DUQUE . Facility:[facility] Start: 07-31-2022 End: 07-31-2022 ambulatory Jody Carey Other [facility] Other Start: 07-31-2022 Office outpatient ne w 30 minutes Jody Carey [facility] Start: 04-22-2022 End: 04-22-[address] BENNETT DUQUE . Facility:[facility] Start: 02-05-2022 End: 02-05-[address] SEBASTIÁN FRIAS . Facility:[facility] Start: 01-24-2022 End: 01-25-[address] JESSIE HOPE . Facility: Procedures Date Procedure Procedure Detail Performing Clinician Start: 02-10-2025 MM TOMOSYNTHESIS SCR EENING BI Jessie Hope DO Work Phone: Start: 02-01-2025 Urine test visual color cmprsn meths Jessie Herminia DO Work Phone: Start: 02-01-2025 PATHOLOGY REQUEST FO R LAB CAR[facility] Jessie CFX BATTERY DO Work Phone: Start: 01-04-2025 IGP,APTIMA HPV,AGE GDLN Jessie CFX BATTERY DO Work Phone: Start: 12-13-2024 US PELVIS W/ TRANSVAGINAL Jessie Herminia DO Work Phone: Start: 11-23-2024 ALL CBC WITH AUTO DIFF [employer] DO Work Phone: Start: 11-23-2024 Urnls dip stick/tabl et rgnt non-auto w/o micrscp Jessie Herminia DO Work Phone: Start: 03-14-2023 Cytp cerv/vag auto t hin layer prep mnl screen [employer] DO Work Phone: Plan of Treatment Date Care Activity Detail Author Start: 01-18-2026 End: 01-18-2026 Patient encounter procedure 01/18/2026 4:00 PM EDT Office Visit [facility] [address] [place] [id number] Jessie Hope, [address] [place] [address] [facility] Start: 04-13-2025 End: 04-13-2025 Patient encounter procedure 04/13/2025 8:30 AM EDT Office Visit [facility] [address] [place] [address] Adrienne Sousa PA [address] [place], [place] [id number] [facility] Start: 03-09-2025 End: 03-09-2025 Patient encounter procedure 03/09/2025 8:30 AM EDT Office Visit [facility] [address] [place] [phone] Adrienne Sousa PA [address] [place] [address] [facility] Start: 02-01-2025 End: 02-01-2025 Patient encounter procedure 02/01/2025 1:30 PM EDT Procedure Visit [facility] [address] [id number] Jessie Hope DO [address] [place] [address] [facility] Start: 02-01-2025 [facility] Start: 01-04-2025 End: 03-06-2026 MG Breast - bilateral Screening Bilateral screening mammogram Imaging Routine Well woman exam with routine gynecological exam Encounter for screening mammogram for malignant neoplasm of breast Expected: 01/04/2025 (Approximate), Expires: 03/06/2026 [facility] Work Phone: Comment on above: Expected: 01/04/2025 (Approximate), Expires: 03/06/2026 Start: 01-04-2025 End: 01-04-2025 Patient encounter procedure [facility] Comment on above: Arrived Start: 11-23-2024 End: 11-23-2025 aPTT in Blood by Coagulation assay APTT Lab Routine Menorrhagia with regular cycle Expected: 11/23/2024 (Approximate), Expires: 11/23/2025 [facility] Comment on above: Expected: 11/23/2024 (Approximate), Expires: 11/23/2025 Start: 11-23-2024 End: 11-23-2025 US Pelvis US Pelvis w/ TV Imaging Routine Menorrhagia with irregular cycle Menorrhagia with regular cycle Expected: 11/23/2024, Expires: 11/23/2025 [facility] Comment on above: Expected: 11/23/2024 , Expires: 11/23/2025 Start: 11-23-2024 End: 11-23-2024 Patient encounter procedure 11/23/2024 9:30 AM EDT Office Visit [facility] [address] [place] [address] Jessie Hope DO [address] [place] [address] Arrived [facility] Comment on above: Arrived Biopsy endometrium Biopsy endome trium Procedures Routine Pre-op examination Dysmenorrhea Menorrhagia with regular cycle Dyspareunia in female Pelvic pain Ordered: 02/01/2025 [facility] Work Phone: Comment on above: Ordered: 02/01/2025 CBC W Auto Different ial panel - Blood CBC and differential Lab Routine Menorrhagia with regular cycle Ordered: 11/23/2024 [facility] Work Phone: Comment on above: Ordered: 11/23/2024 hCG, quantitative, hCG, quantitative, Lab Routine Menorrhagia with regular cycle Ordered: 11/23/2024 [facility] Comment on above: Ordered: 11/23/2024 Hemoglobin A1c/Hemoglobin.total in Blood Hemoglobin A1c Lab Routine Menorrhagia with regular cycle Ordered: 11/23/2024 [facility] Comment on above: Ordered: 11/23/2024 Prothrombin time (PT ) in Blood by Coagulation assay Protime-INR Lab Routine Menorrhagia with regular cycle Ordered: 11/23/2024 [facility] Comment on above: Ordered: 11/23/2024 THIN PREP TIS PAP AN D HR HPV DNA THIN PREP TIS PAP AND HR HPV DNA Pathology and Cytology Routine Well woman exam with routine gynecological exam Ordered: 01/04/2025 [facility] Comment on above: Ordered: 01/04/2025 Thyrotropin [Units/volume] in Serum or Plasma TSH Lab Routine Menorrhagia with regular cycle Ordered: 11/23/2024 [facility] Comment on above: Ordered: 11/23/2024 Thyroxine (T4) free [Mass/volume] in Serum or Plasma T4, free Lab Routine Menorrhagia with regular cycle Ordered: 11/23/2024 [facility] Comment on above: Ordered: 11/23/2024 Payers Date Payer Category Payer Self-pay 2021 [facility] [id number] 1980 Unknown [id number] 1980 Unknown [id number] 1980 Unknown [id number] 1980 Unknown [id number] 1980 Unknown [id number] 1980 Unknown [id number] 1980 Unknown [id number] 1980 Unknown [id number] 1958 [facility] OLAMIDE [id number] 1958 Unknown [id number] Unknown [id number] Social History Date Type Detail Facility Start: 03-24-2023 End: 11-23-2024 Sex Assigned At [facility] [employer] Other Start: 07-31-2022 Tobacco smoking stat us NHIS Smoker (finding) [facility] Start: 1980 Sex Assigned At Female F [facility] Start: 07-31-2022 End: 02-06-2023 Tobacco smoking status NHIS Smokes tobacco daily [facility] History of tobacco use Cigarette Smoker [facility] Start: 03-24-2023 End: 11-23-2024 Alcoholic beverage intake Current drinker of alcohol (finding) [facility] Start: 03-24-2023 End: 11-23-2024 History of Social function [facility] Start: 02-06-2023 Tobacco Comment Patient smokes 6-10 cigarettes/day after 6-30 minutes of waking up. [facility] Start: 02-06-2023 Alcohol Comment monthly or less [facility] Start: 02-03-2023 Gender identity Identifies as female gender (finding) [facility] Sex Female (finding) [facility] History of Present illness Narrative 02-01-2025 Liseth Garcia - 02/01/2025 1:30 PM EDT Note Date & Type Note Facility 02-01-2025 History of Presen t illness Narrative Reason for Appointment: Patient ID: Keyla Keith is a 44 y.o. female who presents for Pre-op Visit and EMBX Patient presents today for Pre Op/Endometrial Biopsy appointment. Patient is scheduled to undergo Total Abdominal Hysterectomy, possible BSO, possible cystoscopy on 03-02-[address] Hope at [facility]. MEDICATIONS Current Outpatient Medications Medication Instructions [...] nursing note reviewed. Exam conducted with a acoustical carpenter present. Vitals: Estimated body mass index is 31.7 kg/m as calculated from the following: Height [...] on 03-02-[address] Hope at [facility]. EMBX: Patient was placed in dorsal [...] by Silvana Clay LPN on behalf of: Jessie Hope DO documented in this encounter [facility] History of Present illness Narrative 01-04-2025 Yari Faria LPN - 01/04/2025 1:20 PM EDT Note Date & Type Note Facility 01-04-2025 History of Presen t illness Narrative Reason for Appointment: Patient ID: Keyla Keith is a 44 y.o. female who presents for Gynecologic Exam Patient presents today for Annual Exam. MEDICATIONS Current Outpatient Medications Medication Instructions albuterol [...] Date Breast cancer screening 01/24/2022 Depressive disorder ([facility] H/O: section HISTORY PAST MEDICAL HISTORY SOCIAL [...] appearance. She is well-developed. Genitourinary: Vulva normal. Breasts: Breasts are soft. Right: Normal. Left: Normal. Cardiovascular: Rate and Rhythm: Normal rate and [...] nursing note reviewed. Exam conducted with a acoustical carpenter present. Vitals: Estimated body mass index is 31.7 kg/m as calculated from the following: Height as of 02/10/23: 5' 7 . Weight as of this encounter: 202 lb 6.4 oz. BP: 122/80 No LMP recorded (lmp unknown). ASSESSMENT & PLAN ICD-10-CM 1. Well woman exam with routine gynecological exam Z01.419 Bilateral screening mammogram THIN PREP TIS PAP AND HR HPV DNA Bilateral screening mammogram 2. Hormone imbalance E34.9 3. Encounter for screening mammogram for malignant neoplasm of breast Z12.31 Bilateral screening mammogram Bilateral screening mammogram Annual: Patient presents today for an annual exam. Patient states she is doing well and has no complaints. Pap was obtained without difficulty and patient given mammogram order to have scheduled/obtained. Orders Placed This Encounter Procedures Bilateral screening mammogram Follow Up: Patient is to return in one year for annual unless needed otherwise. Documented by Yari Faria LPN on behalf of: Jessie Hope DO documented in this encounter [facility] History of Present illness Narrative [...] nursing note reviewed. Exam conducted with a acoustical carpenter present. Vitals: Estimated body mass index is [...] Jessie Hope DO documented in this encounter [facility] Healthcare Evaluation note 07-31-2022 Note Date [...] treatment plan. Patient left in stable condition [facility] Other Evaluation note Note Date & Type Note Facility Evaluation note No assessment information availa [facility] Work Phone: Evaluation note Note Date & Type Note Facility Evaluation note Diagnosis Menorrhagia with irregular cycle Spotting Other specified noninflammatory disorder of vagina Hormone imbalance Menorrhagia with regular cycle documented in this encounter [facility] Healthcare Evaluation note Note Date & Type Note Facility Evaluation note Diagnosis Well woman exam with routine gynecological exam Routine gynecological examination Hormone imbalance Encounter for screening mammogram for malignant neoplasm of breast documented in this encounter [facility] Healthcare Evaluation note Note Date & Type Note Facility Evaluation note Diagnosis Pre-op examination Dysmenorrhea Menorrhagia with regular cycle Dyspareunia in female Pelvic pain documented in this encounter [facility] Healthcare History general Narrative - Reported Note Date & Type Note Facility History general Narrative - Reported Type Surgical History C section Hospitalization History see above [facility] Other Reason for referral (narrative) Note Date & Type Note Facility Reason for referral (narrative) No reason for referral information available [facility] Work Phone: Summary Purpose Family History No Family History Records FoundNo Family History Records FoundNo Family History Records Found Advance Directives No Advanced Directives Records Found Advance Directive Response Recorded Date/ Time Advance Directives No May 25, 2024 11:11am Chief Complaint and Reason for Visit Chief Complaint headache cough conge stion Chief Complaint Admit Date Unknown February 01, 2025 1:27p m Additional Source Comments REASON FOR VISIT (unrecogniz ed section and content) Reason Comments Menorrhagia Pt present today for menorrhagia and irregular bleeding. Pt has had 2 periods in September and then 10/24/2024-10/28/2024 heavy bleeding. 11/03/2024-11/08/2024 heavy bleeding and again started bleeding on 11/15/24-11/18/2024 another heavy period. Reason Comments Gynecologic Exam Reason Comments Pre-op Visit [facility] INFORMATION SOURCE (unrecogn ized section and content) DATE CREATED AUTHOR 12/10/2022 [facility] DATE CREATED AUTHOR AUTHOR'S ORGANIZ ATION 02/03/2025 [facility] EPIC DATE CREATED AUTHOR AUTHOR'S ORGANIZ ATION 02/13/2025 [facility] Care Teams (unrecognized sec tion and content) Team Status: Active Member Role Status Dates Bennett Dquue MD Primary Care Provider Active Team Status: Inactive Member Role Status Dates Bennett Duque MD Primary Care Provider Active Start: May 25, 2024 End: May 25, 2024 Jody Carey APRN Attending Provider Active Start: May 25, 2024 End: May 25, 2024 Solutions Market Consultant Relationship Specialty Start Date End Date Bennett Duque MD [address] [place] [address] PCP - General Family Medicine 02/10/23 Solutions Market Consultant Relationship Specialty Start Date End Date Bennett Duque MD [address] [place] [address] PCP - General Family Medicine 02/10/23 Solutions Market Consultant Relationship Specialty Start Date End Date Bennett Duque MD [address] [place] [address] PCP - General Family Medicine 02/10/23 [employer] Market Consultant Relationship Specialty Start Date End Date Bennett Duque MD PCP - General Family Medicine 02/10/23 Solutions Market Consultant Relationship Specialty Start Date End Date Bennett Duque MD [address] [place] [address] PCP - [facility] 02/10/23 Solutions Market Consultant Relationship Specialty Start Date End Date Bennett Duque MD [address] [place] [address] PCP - [facility] 02/10/23 Team Status: Inactive Member Role Status Dates Jessie Hope DO Attending Provider Active Start : February 01, 2025 End: February 01, 2025 Solutions Market Consultant Relationship Specialty Start Date End Date Bennett Duque MD [address] [place] [address] PCP - General Family Medicine 02/10/23 Goals [...] BE BASED ON THE PRIMARY CLINICAL RECORDS. [facility]. provides no warranty or guarantee of the accuracy or completeness of information in this document.
--- NOTE | 2025-02-21 10:29 | XR_ITS ---
[address] [address] Patient Name: SALBADOR HUNT MRN: [id number] date: 1980 Sex: F Assigned Patient Location: [facility] Current Patient Location: [facility] Accession/Order Number: [id number] Exam Date: 02/21/2025 10:51 Report Date: 02/21/2025 10:52 At the request of: JESSIE RODRIGUEZ DO Procedure: XR chest 2V Chest 2 views CLINICAL HISTORY: Preop exam COMPARISON: Chest 07/07/2023 FINDINGS: Heart normal size. Lungs are clear. No free air. XR/XR chest 2V IMPRESSION: NO ACUTE CARDIOPULMONARY ABNORMALITY. Impression dictated by: Sriram Berry Jr., DAugustusOAugustus 02/21/2025 10:52 AM Dictation Location: [place] [address] Electronically authenticated by: [id number] Y Date: 02/21/2025 10:52
[2025-02-21 11:19] LABS: Hematocrit 39.4 % (36.0-48.0); Hemoglobin 13.3 g/dL (12.0-16.0); Immature Granulocytes Abs Auto 0.02 10^3/uL (0.00-0.03); Immature Granulocytes Pct Auto 0.3 % (0.0-0.5); Lymphocytes Absolute Auto 2.1 10^3/uL (1.2-3.8); Mean Corpuscular HGB Conc 33.8 g/dL (29.9-35.2); Mean Corpuscular Hemoglobin 33.3 pg (26.7-34.0); Mean Corpuscular Volume 98.7 fL (81.0-99.0); Platelet Count 226 10^3/uL (150-450); Red Blood Count 3.99 10^6/uL (4.20-5.40); White Blood Count 6.4 10^3/uL (4.0-11.0)
[2025-02-21 11:42] LABS: Partial Thromboplastin Time 26.1 sec (22.3-36.2); Prothrombin Time 9.8 sec (9.0-11.6)
[2025-02-21 11:50] LABS: INR <0.93
[2025-02-21 15:00] LABS: Alanine Aminotransferase 30 U/L (14-59); Albumin Globulin Ratio 1.1; Albumin Level 3.6 g/dL (3.4-5.0); Alkaline Phosphatase 79 U/L (46-116); Anion Gap 15.3; Aspartate Amino Transferase 15 U/L (15-37); Blood Urea Nitrogen 10.0 mg/dL (7.0-18.0); Calcium 9.0 mg/dL (8.5-10.1); Carbon Dioxide 25.2 mmol/L (21.0-32.0); Chloride 107 mmol/L (98-107); Estimated GFR (African America >60 (>=60 mL/min/1.73m^2); Estimated GFR (Non-African Ame >60 (>=60 mL/min/1.73m^2); Globulin 3.4 g/dL; Glucose 100 mg/dL (74-106); Potassium 4.5 mmol/L (3.5-5.1); Sodium 143 mmol/L (136-145); Total Protein 7.0 g/dL (6.4-8.2)
== END 2025-02-21 10:00 | disposition home or self-care (01) ==
LOC: PST 10:00
PROVIDERS: PCP Family Medicine; Visit Provider Obstetrics & Gynecology
DX: Z01.810 Encounter for preprocedural cardiovascular examination (principal); Z01.812 Encounter for preprocedural laboratory examination; N92.0 Excessive and frequent menstruation with regular cycle; N94.10 Unspecified dyspareunia; N94.6 Dysmenorrhea, unspecified; R10.2 Pelvic and perineal pain
CPT/HCPCS: 71046; 80048; 80076; 85025; 85610; 85730; 86850; 86900; 86901

== ENCOUNTER 2025-03-02 06:18 | Inpatient (IN) | payer BC, SELFPAY ==
--- OUTSIDE RECORDS SUMMARY | 2024-12-14 12:15 | XMS_ITS ---
Author Organization [facility] in [place] Address [address] [place] [address] Care Team Providers Care Dot Compliance Coordinator Name Role Phone MonoXavier beltran Primary Care Provider Birdie Parkinson Unavailable [phone] Allergies No Known Allergies REASON FOR VISIT [...] quitting? Thinking about q uitting Vital Signs Weight 203.6 lbs 12/14/2024 Height 66 in 12/14/2024 Blood pressure systolic 132 mm Hg 12/15/19 25 Blood pressure diastolic 88 mm Hg 025 BMI 32.86 kg/m2 12/14/2024 Encounters Encounter Location Date Provider Diagnosis [facility] [address] [place] [address] 12/14/2024 Birdie Parkinson Right foot pain M79. [...] MARILEE Keyla AshaDOB: 2 (44 yo F)Acc No.[id number]:12/14/2024 Progress Note Patient: Keyla LORENZO Provider: Yair Parkinson ([facility]), TAKER OFF DRYING KILN :1980 A ge:44 Y S ex:Female Date:12/14/2024 Address:[address] [place], [place] [id number] Pcp:Xavier Duque Check In:04:16 PM ESTCheck O [...] rx after * Preventive Medicine: Screenings/Counseling: B OK ACTION PLAN Above Normal BMI Follow-up D ietary management education, guidance, and counseling * Follow Up: p rn * * Electronically signed by Jocelynn Parkinson , DRIVE WORKER, WAITER/WAITRESS SECOND CLASS.TAKER OFF DRYING KILN.[id number] on 12/16/2024 at 09:03 AM EDT Sign off status: Completed Visit Status: C HK (Check Out) true * Provider: Yair Parkinson ([facility]), TAKER OFF DRYING KILN Date: 0 12/14/2024 Generated for [employer] [facility]isette/eTransmitting on: 0 03/02/2025 06:19 AM EDT History and Physical Notes * [...]
[2025-02-21 10:05] VITALS: BP 148/85; PULSE 70; TEMP 36.4; O2SAT 98; BMI 32.8
[2025-03-02] VITALS (15 sets, daily range): BP systolic 109–137; BP diastolic 75–90; PULSE 72–89; TEMP 36.1–36.7; O2SAT 93–98; BMI 32.1
--- NOTE | 2025-03-02 06:15 | ECG_ITS ---
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 Measurements Intervals [place] Rate: 78 P: 55 HI: 158 QRS: 62 QRSD: 95 T: 53 QT: 368 QTc: 421 Interpretive Statements SINUS RHYTHM Normal ECG No previous ECG available for comparison Electronically Signed On 03-02-2025 8:08:30 EDT by GIANLUCA MALDONADO M.D.
--- OUTSIDE RECORDS SUMMARY | 2025-03-02 06:19 | XMS_ITS | Encounter Summary ---
Author Organization [facility] Address [address] [facility] [place] [address] Care Team Providers Care Public Service Administrator Name Role Phone Reji Duque MD Primary Care Provider [phone] Encounter Details Date Type Department Care Team (Late Contact Info) Description 02/10/2025 Abstract [facility] [address] [place] [address] [place] [address] Cathleen Dubon MA Social History Tobacco [...] Description 03/09/2025 8:30 AM EDT Office Visit [facility] [address] [place] [address] [place] [address] Adrienne Lutz PA [address] [place], [place] [phone] 04/13/2025 8:30 AM EDT Office Visit [facility] [address] [place], [place] [address] [phone] Adrienne Lutz PA [address] [place] [address] 01/18/2026 4:00 PM EDT Office Visit [facility] [address] [place] [address] Khadar Hope DO [address] [place] [address] documented as of this encounter Visit Diagnoses Not on filedocumented in this encounter Care Teams Public Service Administrator Relationship Specialty Start Date End Date Reji Duque MD [address] [facility] [place] [place] [address] PCP - General Family Medicine 02/10/23 documented as of this encounter
--- OUTSIDE RECORDS SUMMARY | 2025-03-02 06:19 | XMS_ITS | Encounter Summary ---
Author Organization [facility] Address [address] [facility] [place] [address] Care Team Providers Care Mink Slicer Name Role Phone Reji Duque MD Primary Care Provider [phone] Encounter Details Date Type Department Care Team (Late Contact Info) Description 01/18/2025 Orders Only [facility] [place] [place] [address] Cathy Kiser LPN [address] [place] [id number] Social History Tobacco Use Types Packs/Day Years [...] 03/09/2025 8:30 AM EDT Office Visit [facility] [place] [place] [address] Adrienne Lutz PA [address] [facility] [address] [place], [place] [phone] 04/13/2025 8:30 AM EDT Office Visit K[facility]RAN ODEN [address] [facility] [place] [address] Adrienne Lutz PA [address] [facility] [place] [address] 01/18/2026 4:00 PM EDT Office Visit [facility] ODEN [address] [facility] [place] [address] Khadar Hope DO [address] [facility] [place] [address] documented as of this encounter Procedures Procedure Name Priority Date/Time Associated Diagnosis Comments PAP SMEAR Routine 01/04/2025 12:00 AM EDT documented in this encounter Results * Pap Smear (01/04/2025 12:00 AM EDT) Swab Cervical swab / Unknown us Khadar Hope DO LAB CYTOLOGY ORDERABLES Final Re sult EXTERNAL LAB documented in this encounter Visit Diagnoses Not on filedocumented in this encounter Care Teams Mink Slicer Relationship Specialty Start Date End Date Reji Duque MD [address] [facility] [place] [address] PCP - General Family Medicine 02/10/23 documented as of this encounter
--- OUTSIDE RECORDS SUMMARY | 2025-03-02 06:19 | XMS_ITS | Patient Health Record ---
Author Organization [facility] [place] Address [address] [place] [address] Care Team Providers Care Noodle Catalyst Maker Name Role Phone Xavier Duque Primary Care Provider Birdie Parkinson Unavailable [phone] Allergies No Known Allergies Results Component Value Reference Range Notes MM tomosynthesis screening B I Reviewed date:02/10/2025 06:47:22 PM Interpretation: Performing Lab: Notes/Report: Source Facility: [place] [address] Mammography Report Signed Patient: KEYLA HUNT MR#: [id number] : 1980 Acct:[id number] Age/Sex: 44 / F ADM Date: 02/10/25 Loc: MAMMO Attending Dr: Jessie Hope D.O. Ordering Physician: Jessie Hope D.O. Results: Date of Service: 02/10/25 Follow Up: Procedure(s): MM tomosynthesis screening BI Accession Number(s): [id number] cc: Jessie Hope D.O.; Reji Duque M.D. Patient Name: KEYLA HUNT MR#: [id number] : 1980 Exam Date: 02/10/2025 Ordering Doctor: [...] breast cancer at age 45. LOCATION: The BREAST COMPOSITION: The breasts are heterogeneously dense, [...] D.O. Signed By: 02/10/251650 DD/ 49 TD/TT: Gre Instructor: [place] [address] Mammography Report Signed Patient: PUSHPA HUNT MR#: [id number] : 1980 Acct:[id number] Age/Sex: 44 / F ADM Date: 02/10/25 Loc: MAMMO Attending Dr: Jessie Hope D.O. Ordering Physician: Jessie Hope D.O. Results: Date of Service: 02/10/25 Follow Up: Procedure(s): MM tomosynthesis screening BI Accession Number(s): [id number] cc: Jessie Hope D.O. ; Reji Duque M.D. Patient Name: KEYLA HUNT MR#: [id number] : 1980 Exam Date: 02/10/2025 Ordering Doctor: DR JESSIE HOPE . RADIOLOGY REPORT PROCEDURE: MM TOMOSYNTHESIS SCREENING BI COMPARISON: MG MAMM [place] DIAG W CAD, 08/29/2022. MG MAMM SCREEN 3D [place] CAD, 01/24/2022. INDICATIONS: Screening Calculator Name NCI Breast Cancer Risk Assessment Tool 5 Year Breast Cancer Risk 1.00% Lifetime Breast Canc er Risk 13.20% Personal Breast Canc er No Personal Ovarian Can cer No Treatments None Family Cancers Mothe r with colon cancer at age 62; Cousin-maternal with breast cancer at age 44. LOCATION: [facility] BREAST COMPOSITION: The breasts are heterogeneously dense, which may obscure small masses. FINDINGS: RIGHT BREAST: No significant suspicious finding. LEFT BREAST: No significant suspicious finding. DIAGNOSTIC CATEGORY 1--NEGATIVE. RECOMMENDATIONS: ROUTINE MAMMOGRAM AN D CLINICAL EVALUATION IN 12 MONTHS. PLEASE NOTE: A CHANDANA L MAMMOGRAM DOES NOT EXCLUDE THE POSSIBILITY OF BREAST CANCER. A CLINICALLY SUSPICIOUS PALPABLE LUMP SHOULD BE BIOPSIED. Dictated by: Jamey Stiles DO on 02/10/2025 at 16:47 Approved by: Jamey Stiles DO on 02/10/2025 at 16:50 Dictated By: Jamey Stiles D.O. Signed By: 02/10/251650 DD/ 49 TD/TT: Gre Instructor: CBC AUTO DIFF Reviewed date:02/21/2025 02:54:07 PM Interpretation: Performing Lab: Notes/Report: The , White Blood Count 6.4 4.0-11.0 10 3/uL Red Blood Count 3.99 4.20-5.40 10 6/uL Hemoglobin 13.3 12.0-16.0 g/dL Hematocrit 39.4 36.0-48.0 % Mean Corpuscular Volume 98.7 81.0-99.0 fL Mean Corpuscular Hemoglobin 33.3 26.7-34.0 pg Mean Corpuscular HGB Conc 33.8 29.9-35.2 g/dL Red Cell Distribution Width 12.0 11.0-15.0 % Platelet Count 226 150-450 10 3/uL Mean Platelet Volume 9.4 9.5-13.5 fL Neutrophils Percent Auto 57.2 43.0-75.0 % Lymphocytes Percent Auto 33.3 20.5-60.0 % Monocytes Percent Auto 5.3 1.7-12.0 % Eosinophils Percent Auto 3.6 0.9-7.0 % Basophils Percent Auto 0.3 0.2-2.0 % Immature Granulocytes Pct Auto 0.3 0.0-0.5 % Neutrophils Absolute Auto 3.7 1.4-6.5 10 3/uL Lymphocytes Absolute Auto 2.1 1.2-3.8 10 3/uL Monocytes Absolute Auto 0.3 0.3-0.8 10 3/uL Eosinophils Absolute Auto 0.2 0.0-0.7 10 3/uL Basophils Absolute Auto 0.0 0.0-0.1 10 3/uL Immature Granulocytes Abs Auto 0.02 0.00-0.03 10 3/uL Performing Lab: see note ML - [facility] LB Type and Screen Reviewed date:02/21/2025 02:54:07 PM Interpretation: Performing Lab: Notes/Report: The , Blood Type A Positive Antibody Screen NEGATIVE Prothrombin Time INR Reviewed date:02/21/2025 02:54:07 PM Interpretation: Performing Lab: Notes/Report: The , Prothrombin Time 9.8 9.0-11.6 sec INR <0.93 DESIRED INR: 2.0-3.0 CONDITIONS NOT LISTED BELOW 2.5-3.5 FOR PROSTHETIC HEART VALVE REPLACEMENT 2.5-3.5 RECURRENT THROMBOSIS Performing Lab: see note ML - [facility] LB PTT Reviewed date:02/21/2025 02:54:07 PM Interpretation: Performing Lab: Notes/Report: The , Partial Thromboplastin Time 26.1 22.3-36.2 sec Performing Lab: see note ML - [facility] LB PROF CHEM 8 (BAS METB) Reviewed date:02/21/2025 07:28:50 PM Interpretation: Performing Lab: Notes/Report: The , Sodium 143 136-145 mmol/L Potassium 4.5 3.5-5.1 mmol/L Chloride 107 98-107 mmol/L Carbon Dioxide 25.2 21.0-32.0 mmol/L Anion Gap 15.3 Glucose 100 74-106 mg/dL Blood Urea Nitrogen 10.0 7.0-18.0 mg/dL Creatinine 0.64 0.55-1.02 mg/dL Estimated GFR ( Kristen >60 >=60 mL/min/1.73m 2 Estimated GFR (Non- Irina >60 >=60 mL/min/1.73m 2 BUN Creatinine Ratio 15.6 Calcium 9.0 8.5-10.1 mg/dL Performing Lab: see note ML - [facility] LB LIVER PROFILE Reviewed date:02/21/2025 07:28:50 PM Interpretation: Performing Lab: Notes/Report: The , Bilirubin Total 0.3 0.2-1.0 mg/dL Bilirubin Direct 0.1 0.0-0.2 mg/dL Aspartate Amino Transferase 15 15-37 U/L Alanine Aminotransferase 30 14-59 U/L Alkaline Phosphatase 79 46-116 U/L Total Protein 7.0 6.4-8.2 g/dL Albumin Level 3.6 3.4-5.0 g/dL Globulin 3.4 Albumin Globulin Ratio 1.1 Performing Lab: see note ML - [facility] LB IGP,Aptima HPV,Age Gdln Reviewed date:01/08/2025 05:22:27 PM Interpretation: Performing Lab: Notes/Report: BRUSH-SPATULA CERVIX [facility] , Age Gdln ACOG Testing Note . TESTS RESULT FLAG UNITS REF RANGE LAB Clinician Provided Cytology Information Source.............Cer vix No. of containers..01 ThinPrep Vial Age Algo ACOG Kirstie... 30-65 01 FLAG LEGEND: L-Low Normal,H-High Normal,LL-Alert Low,HH-Alert High <-Panic Low,>-Panic High,A-Abnormal,AA-Cri tical Abnormal Performed at: 01 =G [facility] [address] [place] [address] Yamila Cotter MD, IGP, Aptima HPV, rfx 16/18,45 Note . TESTS RESULT FLAG UNITS REF RANGE LAB DIAGNOSIS: 02 NEGATIVE FOR INTRAEPITHELIAL LESION OR MALIGNANCY. Specimen adequacy: 02 Satisfactory for evaluation. No endocervical component is identified. Performed by: 02 Rod Ro, Manager Web Application ([facility]) . 02 Note: Note 02 The Pap [...] L-Low Normal,H-High Normal,LL-Alert Low,HH-Alert High <-Panic Low,>-Panic High,A-Abnormal,AA-Cri tical Abnormal Performed at: 02 WB [facility] [address] [place] [address] Yamila Cotter MD, HPV Aptima Negative Negative This nucleic acid amplification test detects fourteen high- risk HPV types (16,18,31,33,35,39,45, 51,52,56,58,59,66,68) without differentiation. Performed at: =G - [facility] [address], [place] [id number] Underwriting Sales Representative: Yamila Cotter MD, Phone: [phone] Performed at: [facility] [address] [place], [place] [id number] Underwriting Sales Representative: Yamila Cotter MD, Phone: [phone] Performing Lab: see note - [facility] LB US pelvis w/ transvaginal Reviewed date:12/13/2024 02:13:21 PM Interpretation: Performing Lab: Notes/Report: Source Facility: [place] [address] Ultrasound Report Signed Patient: KEYLA HUNT MR#: [id number] : 1980 Acct:[id number] Age/Sex: 44 / F ADM Date: 12/11/24 Loc: US Attending Dr: Jessie Hope D.O. Ordering Physician: Jessie Hope D.O. Date of Service: 12/11/24 Procedure(s): US pelvis w/ transvaginal Accession Number(s): [id number] cc: Jessie Hope D.O.; Reji Duque M.D. [place] [address] Patient Name: KEYLA HUNT MRN: [id number] date: 1980 Sex: F Assigned Patient Location: Current Patient Location: Accession/Order Number: [id number] Exam Date: 12/13/2024 09:53 Report Date: 12/13/2024 [...] Gupta M.D. 12/13/2024 9:58 AM Dictation Location: [place] [address] Electronically authenticated by: [id number] Y Date: 12/13/2024 09:58 Dictated By: Yari Gupta M.D. Signed By: 12/13/24 1001 DD/ 0958 TD/TT: Gre Instructor: [place] [address] Ultrasound Report Signed Patient: PUSHPA HUNT MR#: [id number] : 1980 Acct:[id number] Age/Sex: 44 / F ADM Date: 12/11/24 Loc: US Attending Dr: Jessie Hope D.O. Ordering Physician: Jessie Hope D.O. Date of Service: 12/11/24 Procedure(s): US pel vis w/ transvaginal Accession Number(s): [id number] cc: Jessie Hope D.O. ; Reji Duque M.D. [address] [address] Patient Name: KEYLA HUNT MRN: [id number] date: 1980 Sex: F Assigned Patient Location: Current Patient Location: Accession/Order Numb er: [id number] Exam Date: 12/13/2024 09:53 Report Date: 12/13/2024 [...] US/US pelvis w/ transvaginal IMPRESSION: PROMINENT UTERUS WIT H SUSPECTED FUNDAL FIBROID. NONVISUALIZATION OF THE LEFT OVARY. UNREMARKABLE RIGHT OVARY. Impression dictated by: Yari Gupta M.D. 12/13/2024 9:58 AM Dictation Location: [place] [address] Electronically authenticated by: [id number] Y Date: 12/13/2024 09:58 Dictated By: Yari Gupta M.D. Signed By: 12/13/24 1001 DD/ 0958 TD/TT: Gre Instructor: Prothrombin Time INR Reviewed date:11/23/2024 02:27:16 PM Interpretation: Performing Lab: Notes/Report: [facility] , Prothrombin Time 10.2 9.0-11.6 sec INR 0.96 DESIRED INR: 2.0-3.0 CONDITIONS NOT LISTED BELOW 2.5-3.5 FOR PROSTHETIC HEART VALVE REPLACEMENT 2.5-3.5 RECURRENT THROMBOSIS Performing Lab: see note ML - [facility] LB TSH Reviewed date:11/23/2024 02:27:16 PM Interpretation: Performing Lab: Notes/Report: The , Thyroid Stimulating Hormone 3.037 0.358-3.740 uIU/mL Performing Lab: see note ML - [facility] LB PTT Reviewed date:11/23/2024 02:27:16 PM Interpretation: Performing Lab: Notes/Report: The , Partial Thromboplastin Time 25.9 22.3-36.2 sec Performing Lab: see note - [facility] LB PREG QUANT HCG Reviewed date:11/23/2024 02:27:16 PM Interpretation: Performing Lab: Notes/Report: The , HCG Quantitative <1 5-50 0.2-1 WEEK 50-500 1-2 WEEKS 100-5,000 2-3 WEEKS 500-10,000 3-4 WEEKS 1,000-50,000 4-5 WEEKS 10,000-100,000 5-6 WEEKS 15,000-200,000 6-8 WEEKS 10,000-100,000 2-3 MONTHS Performing Lab: see note ML - [facility] LB GLYCOHEMOGLOBIN A1C Reviewed date:11/23/2024 02:27:16 PM Interpretation: Performing Lab: Notes/Report: The , Glycohemoglobin A1C 5.6 4.5-6.2 % ADA RECOMMENDED LIMIT 4.0 - 6.0 ADA THERAPEUTIC TARGET < 7.0 ACTION SUGGESTED > 7.0 Estimated Average Glucose 114 Performing Lab: see note ML - [facility] FREE T4 Reviewed date:11/23/2024 02:27:16 PM Interpretation: Performing Lab: Notes/Report: The , Free T4 1.03 0.76-1.46 ng/dL Performing Lab: see note ML - [facility] LB XR chest 2V Reviewed date:02/21/2025 02:54:07 PM Interpretation: Performing Lab: Notes/Report: Source Facility: -[address] [place] [address] [place] [address] XRay Report Signed Patient: KEYLA HUNT MR#: [id number] : 1980 Acct:[id number] Age/Sex: 44 / F ADM Date: 02/21/25 Loc: PST Attending Dr: Jessie Hope D.O. Ordering Physician: Jessie Hope D.O. Date of Service: 02/21/25 Procedure(s): XR chest 2V Accession Number(s): [id number] cc: Jessie Hope D.O.; Reji Duque M.D. [address] [id number] Patient Name: KEYLA HUNT MRN: [id number] date: 1980 Sex: F Assigned Patient Location: [facility] Current Patient Location: [facility] Accession/Order Number: [id number] Exam Date: 02/21/2025 10:51 Report Date: 02/21/2025 10:52 At the request of: JESSIE HOPE DO Procedure: XR chest 2V Chest 2 views CLINICAL HISTORY: Preop exam COMPARISON: Chest 07/07/2023 FINDINGS: Heart normal size. Lungs are clear. No free air. XR/XR chest 2V IMPRESSION: NO ACUTE CARDIOPULMONARY ABNORMALITY. Impression dictated by: Sriram Berry Jr., D.O. 02/21/2025 10:52 AM Dictation Location: [place] [address] Electronically authenticated by: [id number] Y Date: 02/21/2025 10:52 Dictated By: Sriram Berry M.D. Signed By: 02/21/25 1054 DD/ 1052 TD/TT: Gre Instructor: The [address] [address] XRay Report Signed Patient: PUSHPA HUNT MR#: [id number] : 1980 Acct:[id number] Age/Sex: 44 / F ADM Date: 02/21/25 Loc: PST Attending Dr: Jessie Hope D.O. Ordering Physician: Jessie Hope D.O. Date of Service: 02/21/25 Procedure(s): XR cecil st 2V Accession Number(s): [id number] cc: Jessie Hope D.O. ; Reji Duque M.D. [address] [place] [id number] Patient Name: KEYLA HUNT MRN: [id number] date: 1980 Sex: F Assigned Patient Location: [facility] Current Patient Location: [facility] Accession/Order Numb er: [id number] Exam Date: 02/21/2025 10:51 Report Date: 02/21/2025 10:52 At the request of: JESSIE HOPE DO Procedure: XR chest 2V Chest 2 views CLINICAL HISTORY: Pr eop exam COMPARISON: Chest 07/07/2023 FINDINGS: Heart normal size. Lungs are clear. No free air. XR/XR chest 2V IMPRESSION: NO ACUTE CARDIOPULMONARY ABNORMALITY. Impression dictated by: Sriram Berry Jr., D.O. 02/21/2025 10:52 AM Dictation Location: [place] [address] Electronically authenticated by: [id number] Y Date: 02/21/2025 10:52 Dictated By: Sriram Berry M.D. Signed By: 02/21/25 1054 DD/ 1052 TD/TT: Gre Instructor: CBC AUTO DIFF Reviewed date:11/23/2024 02:27:16 PM Interpretation: Performing Lab: Notes/Report: The , White Blood Count 7.4 4.0-11.0 10 [...] 0.00-0.03 10 3/uL Performing Lab: see note ML - [facility] LB Reason For Referral No Information Medications Medication [...] Status Risk Notes Problem Pain in limb (94744305) Chronic foot pain (729.5) Active confirmed Problem Palpitations (67372931) Palpitations (R00.2) Active confirmed Problem Anxiety (68358775) Anxiety (F41.9) Active confirmed Problem Smoker (81096896) Smoker (F17.200) Active confi rmed Problem Eczema (54907116) Eczema (L30.9) Active confirm ed Problem Abnormal vaginal bleeding (642774872) DUB (dysfunctional uterine bleeding) (N93.8) Active confirmed Problem Acute bronchiolitis (3465202) Acute bronchiolitis (J21.9) Active confirmed Vital Signs Blood pressure diastolic 88 mm Hg 12/14/2024 Height 66 in 12/14/2024 Blood pressure systolic 132 mm Hg 12/14/2024 Weight 203.6 lbs 12/14/2024 BMI 32.86 kg/m2 12/14/2024 Encounters Encounter Location Date Provider Diagnosis [facility] [address] [place] [address] 12/14/2024 Birdie Iggy Right foot pain M79. 671 and Onychomycosis [...] ACCESS PPO PLUS LOCAL PLAN [address] [place] [address] [phone] [id number] Sagar, Demetria Spouse - patient is the spouse of [...]
--- OUTSIDE RECORDS SUMMARY | 2025-03-02 06:19 | XMS_ITS | Clinical Summary ---
Author Organization [facility] Address [address] [place] [address] Care Team Providers Care Outside Rigger Name Role Phone Reji Duque MD Primary [...] Encounters Date Type Department Care Team Description 02/21/2025 Clinisync Result Encounter NOMS External Department Unsolicited Jessie Hope DO 02/10/2025 Clinisync Result Encounter NOMS External Department Unsolicited Jessie Hope DO 02/10/2025 [place] [address] Cathleen Dubon MA 02/01/2025 1:30 PM EDT [place] [address] Jessie Hope DO Pre-op examination; Dysmenorrhea; Menorrhagia with regular cycle; Dyspareunia in female; Pelvic pain 02/01/2025 External Result Encounter NOMS External Department UnsolicJessie Nicole DO 01/18/2025 Orders Only [facility] [place]ika ODEN [address] [place] [address] Cathy Kiser LPN 01/04/2025 1:20 PM EDT [place] [address] Jessie Hope DO Well woman exam with routine gynecological exam; Hormone imbalance; Encounter for screening mammogram for malignant neoplasm of breast 01/04/2025 Clinisync Result Encounter NOMS External Department Unsolicited Jessie Hope, 01/04/2025 Bamboo flowsheet [facility]OM[facility] Shanika ODEN [address] [place] [address] Jessie Hope, 01/03/2025 Travel 12/13/2024 Clinisync Result Encounter NOMS External Department Unsolicited Jessie Hope DO from Last 3 Months Family History Medical [...] Description 03/09/2025 8:30 AM EDT Office Visit KAMRAN ODEN [address] [place] [address] [place] [address] Adrienne Lutz, PA [address] [facility] [place] [address] 04/13/2025 8:30 AM EDT Office Visit KAMRAN ODEN [address] [place] [address] [place] [address] Adrienne Lutz, PA [address] [facility] [place] [address] 01/18/2026 4:00 PM EDT Office Visit KAMRAN ODEN [address] [place] [address] [place] [address] Jessie Hope DO [address] [place] [address] Procedures Procedure Name Priority Date/Time Associated Diagnosis Comments ALL BASIC METABOLIC PANEL Routine 02/21/2025 11:02 AM EDT [facility] LIVER PANEL Routine 02/21/2025 11:0 2 AM EDT ALL TYPE AND SCREEN Routine 02/21/2025 1 1:02 AM EDT C[facility] APTT Routine 02/21/2025 11:02 AM EDT SRMCOH PROTHROMBIN TIME INR W/O COUM Routine 02/21/2025 11:02 AM EDT ALL CBC WITH AUTO DIFF Routine 11:02 AM EDT XR CHEST 2V 02/21/2025 10:52 AM EDT MM TOMOSYNTHESIS SCREENING BI 02/10/2025 4:50 PM EDT POCT , URINE Routine 02/01/2025 1:34 PM EDT Pre-op examination PATHOLOGY REQUEST FOR LAB CARMEN Routine 02/01/2025 12:00 AM EDT IGP,APTIMA HPV,AGE GDLN Routine 01/04/2025 1:35 PM EDT PAP SMEAR Routine 01/04/2025 12:00 AM EDT US PELVIS W/ TRANSVAGINAL 12/13/2024 9:58 AM EDT from Last 3 Months [facility] (02/21/2025 11:02 AM EDT) PROTHROMBIN TIME 9.8 9.0 - 11.6 sec TBH TBH INR <0.93 TBH Comment: DESIRED INR: 2.0-3.0 CONDITIONS NOT LISTED BELOW 2.5-3.5 FOR PROSTHETIC HEART VALVE REPLACEMENT 2.5-3.5 RECURRENT THROMBOSIS 02/21/2025 11:0 2 AM EDT 02/21/2025 11:08 AM EDT Narrative CLINISYNC - 02/21/2025 11:50 AM EDT us Jessie Herminia DO CLINISYNC Final Result CLINISYNC TB * [facility] LIVER PANEL (02/21/2025 11:02 AM EDT) BILIRUBIN TOTAL 0.3 0.2 - 1.0 mg/dL TBH BILIRUBIN DIRECT 0.1 0.0 - 0.2 mg/dL TBH ASPARTATE AMINO TRANSFERASE 15 15 - 37 U/L TBH ALANINE AMINOTRANSFERASE 30 14 - 59 U/L TBH ALKALINE PHOSPHATASE 79 46 - 116 U/L TBH TOTAL PROTEIN 7.0 6.4 - 8.2 g/dL TBH ALBUMIN LEVEL 3.6 3.4 - 5.0 g/dL TBH GLOBULIN 3.4 g/dL TBH ALBUMIN GLOBULIN RATIO 1.1 TBH 02/21/2025 11:0 2 AM EDT 02/21/2025 11:08 AM EDT Narrative CLINISYNC - 02/21/2025 3:01 PM EDT Jessie Herminia DO CLINISYNC Final Result [facility] * [facility] APTT (02/21/2025 11:02 AM EDT) Pathologist [facility] PARTIAL THROMBOPLASTIN TIME 26.1 22.3 - 36.2 sec TBH 02/21/2025 11:0 2 AM EDT 02/21/2025 11:08 AM EDT Narrative CLINISYNC - 02/21/2025 11:50 AM EDT [employer] Herminia DO CLINISYNC Final Result Performing Organization Address [facility]/ZIP Co de Phone Number [facility] * ALL TYPE AND SCREEN (02/21/2025 11:02 AM EDT) Pathologist [facility] BLOOD TYPE A Positive TBH ANTIBODY SCREEN NEGATIVE TBH 02/21/2025 11:0 2 AM EDT 02/21/2025 11:08 AM EDT Narrative CLINISYNC - 02/21/2025 12:44 PM EDT [facility] , PeekYouo DO CLINISYNC Final Result Performing Organization Address City/[facility]/ZIP Co de Phone Number [facility] TB * (ABNORMAL) ALL CBC WITH AUTO DIFF (02/21/2025 11:02 AM EDT) [facility] TB WBC 6.4 4.0 - 11.0 10 3/uL TBH TB RBC 3.99(L) 4.20 - 5.40 10 6/uL TBH TBH HGB 13.3 12.0 - 16.0 g/dL TBH TBH HCT 39.4 36.0 - 48.0 % TBH TBH MCV 98.7 81.0 - 99.0 fL TBH TBH MCH 33.3 26.7 - 34.0 pg TBH TBH MCHC 33.8 29.9 - 35.2 g/dL TBH TBH RDW 12.0 11.0 - 15.0 % TBH TBH PLT 226 150 - 450 10 3/uL TBH TBH MPV 9.4(L) 9.5 - 13.5 fL TBH NEUTROPHILS PERCENT AUTO 57.2 43.0 - 75.0 % TBH LYMPHOCYTES PERCENT AUTO 33.3 20.5 - 60.0 % TBH MONOCYTES PERCENT AUTO 5.3 1.7 - 12.0 % TBH TBH EO % 3.6 0.9 - 7.0 % TBH BASOPHILS PERCENT AUTO 0.3 0.2 - 2.0 % TBH IMMATURE GRANULOCYTES PCT AUTO 0.3 0.0 - 0.5 % TBH NEUTROPHILS ABSOLUTE AUTO 3.7 1.4 - 6.5 10 3/uL TBH LYMPHOCYTES ABSOLUTE AUTO 2.1 1.2 - 3.8 10 3/uL TBH MONOCYTES ABSOLUTE AUTO 0.3 0.3 - 0.8 10 3/uL TBH TBH EO # 0.2 0.0 - 0.7 10 3/uL TBH BASOPHILS ABSOLUTE AUTO 0.0 0.0 - 0.1 10 3/uL TBH IMMATURE GRANULOCYTES ABS AUTO 0.02 0.00 - 0.03 10 3/uL TBH 02/21/2025 11:0 2 AM EDT 02/21/2025 11:08 AM EDT Narrative CLINISYNC - 02/21/2025 11:22 AM EDT us Jessie Hope DO CLINISYNC Final Result [facility] * ALL BASIC METABOLIC PANEL (02/21/2025 11:02 AM EDT) SODIUM 143 136 - 145 mmol/L TBH POTASSIUM 4.5 3.5 - 5.1 mmol/L TBH CHLORIDE 107 98 - 107 mmol/L TBH CARBON DIOXIDE 25.2 21.0 - 32.0 mmol/L TBH ANION GAP 15.3 TBH GLUCOSE 100 74 - 106 mg/dL TBH BLOOD UREA NITROGEN 10.0 7.0 - 18.0 mg/dL TBH CREATININE 0.64 0.55 - 1.02 mg/dL TBH TBH EGFR-AF CONGOLESE >60 >=60 mL/min/1.7 3m 2 TBH TBH EGFR-NON AF CONGOLESE >60 >=60 mL/min/1.7 3m 2 TBH BUN CREATININE RATIO 15.6 TBH CALCIUM 9.0 8.5 - 10.1 mg/dL TBH 02/21/2025 11:0 2 AM EDT 02/21/2025 11:08 AM EDT Narrative CLINISYNC - 02/21/2025 3:01 PM EDT Jessie Hope DO CLINISYNC Final Result Performing Organization Address City/State/[facility] Co de Phone Number [facility] * XR CHEST 2V (02/21/2025 10:52 AM EDT) Anatomical Region Laterality Modality Other 02/21/2025 10:5 2 AM EDT Narrative 02/21/2025 10:54 AM EDT [address] [address] XRay Report Signed Patient: KEYLA KEITH MR#: [id number] : 1980 Acct:[id number] Age/Sex: 44 / F ADM Date: 02/21/25 Loc: PST Attending Dr: Jessie Hope D.O. Ordering Physician: Jessie Hope D.O. Date of Service: 02/21/25 Procedure(s): XR chest 2V Accession Number(s): [id number] cc: Jessie Hope D.O.; Reji Duque M.D. [address] [address] Patient Name: KEYLA KEITH MRN: [id number] date: 1980 Sex: F Assigned Patient Location: [facility] Current Patient Location: [facility] Accession/Order Number: [id number] Exam Date: 02/21/2025 10:51 Report Date: 02/21/2025 10:52 At the request of: JESSIE HOPE DO Procedure: XR chest 2V Chest 2 views CLINICAL HISTORY: Preop exam COMPARISON: Chest 07/07/2023 FINDINGS: Heart normal size. Lungs are clear. No free air. XR/XR chest 2V IMPRESSION: NO ACUTE CARDIOPULMONARY ABNORMALITY. Impression dictated by: Sriram Berry Jr., D.O. 02/21/2025 10:52 AM Dictation Location: [place] [address] Electronically authenticated by: [id number] Y Date: 02/21/2025 10:52 Dictated By: Sriram Berry M.D. Signed By: 02/21/25 1054 DD/ 1052 TD/TT: Fiscal Technician: Procedure Note Radiology, Radiologist, MD - 02/21/2025 [place] [address] XRay Report Signed Patient: KEYLA KEITH JMR#: [id number] : 1980Acct:[id number] Age/Sex: 44 / FADM Date: 02/21/25 Loc: [facility] Attending Dr: Jessie Hope D.O. Ordering Physician: Jessie Hope D.O. Date of Service: 02/21/25 Procedure(s): XR chest 2V Accession Number(s): [id number] cc: Jessie Hope D.O.; Reji Duque M.D. The [address] [address] Patient Name: KEYLA KEITH MRN: [id number] date: 1980 Sex: F Assigned Patient Location: [facility] Current Patient Location: [facility] Accession/Order Number: [id number] Exam Date: 02/21/2025 10:51 Report Date: 02/21/2025 10:52 At the request of: JESSIE HOPE DO Procedure: XR chest 2V Chest 2 views CLINICAL HISTORY: Preop exam COMPARISON: Chest 07/07/2023 FINDINGS: Heart normal size. Lungs are clear. No free air. XR/XR chest 2V IMPRESSION: NO ACUTE CARDIOPULMONARY ABNORMALITY. Impression dictated by: Sriram Berry Jr., D.O. 02/21/2025 10:52 AM Dictation Location: [place] [address] Electronically authenticated by: [id number] Y Date: 0:52 Dictated By: Sriram Berry M.D. Signed By:02/21/25 1054 DD/ 1052 TD/TT: Fiscal Technician: Jessie Hope DO CLINISYNC IMAGING Final Result * MM TOMOSYNTHESIS SCREENING BI (02/10/2025 4:50 PM EDT) Anatomical Region Laterality Modality Other 02/10/2025 4:50 PM EDT Narrative 02/10/2025 4:51 [place] [address] Mammography Report Signed Patient: KEYLA KEITH MR#: [id number] : 1980 Acct:[id number] Age/Sex: 44 / F ADM Date: 02/10/25 Loc: MAMMO Attending Dr: Jessie Hope D.O. Ordering Physician: Jessie Hope D.O. Results: Date of Service: 02/10/25 Follow Up: Procedure(s): MM tomosynthesis screening BI Accession Number(s): [id number] cc: Jessie Hope D.O.; Reji Duque M.D. Patient Name: KEYLA KEITH MR#: [id number] : 1980 Exam Date: 02/10/2025 Ordering Doctor: [...] breast cancer at age 45. LOCATION: [facility] BREAST COMPOSITION: The breasts are heterogeneously dense, [...] D.O. Signed By: 02/10/251650 DD/ 49 TD/TT: Fiscal Technician: Procedure Note Radiology, Radiologist, MD - 02/10/2025 [place] [address] Mammography Report Signed Patient: KEYLA KEITH JMR#: [id number] : 1980Acct:[id number] Age/Sex: 44 / FADM Date: 02/10/25 Loc: MAMMO Attending Dr: Jessie Hope D.O. Ordering Physician: Jessie Hope D.O.Results: Date of Service: 02/10/25Follow Up: Procedure(s): MM tomosynthesis screening BI Accession Number(s): [id number] cc: Jessie Hope D.O.; Reji Duque M.D. Patient Name: KEYLA KEITH MR#: [id number] : 1980 Exam Date: 02/10/2025 Ordering Doctor: DR JESSIE HOPE . RADIOLOGY REPORT PROCEDURE: MM TOMOSYNTHESIS SCREENING BI COMPARISON: MG MAMM [place] DIAG W CAD, 08/29/2022. MG MAMM SCREEN 3D BILCAD, 01/24/2022. INDICATIONS: Screening Calculator Name NCI Breast Cancer Risk Assessment Tool 5 Year Breast Cancer Risk 1.00% Lifetime Breast Cancer Risk 13.20% Personal Breast Cancer No Personal Ovarian Cancer No Treatments None Family Cancers Mother with colon cancer at age 62; Cousin-maternalwith breast cancer at age 44. LOCATION: [facility] BREAST COMPOSITION: The breasts are heterogeneously dense, which may obscure small masses. FINDINGS: RIGHT BREAST: No significant suspicious finding. LEFT BREAST: No significant suspicious finding. DIAGNOSTIC CATEGORY 1--NEGATIVE. RECOMMENDATIONS: ROUTINE MAMMOGRAM AND CLINICAL EVALUATION IN 12 MONTHS. PLEASE NOTE: A NORMAL MAMMOGRAM DOES NOT EXCLUDE THE POSSIBILITY OFBREAST CANCER. A CLINICALLY SUSPICIOUS PALPABLE LUMP SHOULD BE BIOPSIED. Dictated by: Jamey Stiles DO on 02/10/2025 at 16:47 Approved by: Jamey Stiles DO on 02/10/2025 at 16:50 Dictated By: Jamey Stiles D.O. Signed By:02/10/251650 DD/ 49 TD/TT: Fiscal Technician: us Jessie Herminia DO CLINISYNC IMAGING Final Result * POCT , urine manually resulted (02/01/2025 1:34 PM EDT) Preg Test, Ur Negative Negative Urine 02/01/2025 1:34 PM EDT us Jessie Herminia DO POINT OF CARE TEST ENTER/EDIT OR DERABLES Final Result * PATHOLOGY REQUEST FOR LAB CARMEN (02/01/2025 12:00 AM EDT) PATHOLOGY REQUEST FOR LAB CARMEN 02/09/2025 8:45 AM EDT [facility] Comment:See report. Scanned copy available in EMR. Other Topography unknown / Unknown 02/01/2025 02/02/2025 1:49 PM EDT Narrative [facility] - 02/09/2025 8:45 AM EDT LC SEND OUT- ENDOMETRIUM us Jessie Herminia DO LAB BLOOD ORDERABLES Final Resul t [facility] [address] [place] [address], [facility] [address] [place] [address] * IGP,APTIMA HPV,AGE GDLN (01/04/2025 1:35 PM EDT) [facility] BABS ACOG TESTING Note . [facility] Comment: TESTS RESULT FLAG UNITS REF RANGE LAB Clinician Provided Cytology Information Source.............Cervix No. of containers..01 ThinPrep Vial Dania SALGADO Kirstie... FLAG LEGEND: L-Low Normal,H-High Normal,LL-Alert Low,HH-Alert High <-Panic Low,>-Panic High,A-Abnormal,AA-Critical Abnormal Performed at: 01 =G [address] [address] Yamila Cotter MD, IGP, APTIMA HPV, RFX 16/18,45 Note . [facility] Comment: TESTS RESULT FLAG UNITS REF RANGE LAB DIAGNOSIS: 02 NEGATIVE FOR INTRAEPITHELIAL LESION OR MALIGNANCY. Specimen adequacy: 02 Satisfactory for evaluation. No endocervical component is identified. Performed by: 02 Rod Ro Barrel Charrer (ASCP) . 02 Note: Note 02 The [...] <-Panic Low,>-Panic High,A-Abnormal,AA-Critical Abnormal Performed at: [address] [address] Yamila Cotter MD, HPV APTIMA Negative Negative [facility] Comment: This nucleic acid amplification test detects fourteen high- risk HPV types (16,18,31,33,35,39,45,51,52,56,58,59,66,68) without differentiation. Performed at: =[address] [id number] Emergency Technician: Yamila Cotter MD, Phone: [phone] Performed at: [address] [id number] Emergency Technician: Yamila Cotter MD, Phone: [phone] 01/04/2025 1:35 PM EDT 01/04/2025 8:39 PM EDT Narrative CLINISYNC - 01/07/2025 12:09 PM EDT BRUSH-SPATULA CERVIX us Jessie Herminia DO LAB BLOOD ORDERABLES Final Resul t [facility] * Pap Smear (01/04/2025 12:00 AM EDT) Swab Cervical swab / Unknown us Jessie Herminia DO LAB CYTOLOGY ORDERABLES Final Re sult Performing Organization Address City/[facility] Co de Phone Number EXTERNAL LAB * US PELVIS W/ TRANSVAGINAL (12/13/2024 9:58 AM EDT) Anatomical Region Laterality Modality Other 12/13/2024 9:58 AM EDT Narrative 12/13/2024 10:01 [place] [address] Ultrasound Report Signed Patient: KEYLA KEITH MR#: [id number] : 1980 Acct:[id number] Age/Sex: 44 / F ADM Date: 12/11/24 Loc: US Attending Dr: Jessie Hope D.O. Ordering Physician: Jessie Hope D.O. Date of Service: 12/11/24 Procedure(s): US pelvis w/ transvaginal Accession Number(s): [id number] cc: Jessie Hope D.O.; Reji Duque M.D. [place] [id number] Patient Name: KEYLA KEITH MRN: [id number] date: 1980 Sex: F Assigned Patient Location: US Current Patient Location: Accession/Order Number: [id number] Exam Date: 12/13/2024 09:53 Report Date: 12/13/2024 [...] Gupta M.D. 12/13/2024 9:58 AM Dictation Location: [place] [address] Electronically authenticated by: [id number] Y Date: 12/13/2024 09:58 Dictated By: Yari Gupta M.D. Signed By: 12/13/24 1001 DD/ 0958 TD/TT: Fiscal Technician: Procedure Note Radiology, Radiologist, MD - 12/13/[address] [address] Ultrasound Report Signed Patient: KEYLA KEITH JMR#: [id number] : 1980Acct:[id number] Age/Sex: 44 / FADM Date: 12/11/24 Loc: US Attending Dr: Jessie Hope D.O. Ordering Physician: Jessie Hope D.O. Date of Service: 12/11/24 Procedure(s): US pelvis w/ transvaginal Accession Number(s): [id number] cc: Jessie Hope D.O.; Reji Duque M.D. The [place] [id number] Patient Name: KEYLA KEITH MRN: [id number] date: 1980 Sex: F Assigned Patient Location: US Current Patient Location: Accession/Order Number: [id number] Exam Date: 12/13/2024 09:53 Report Date: 12/13/2024 [...] Gupta M.D. 12/13/2024 9:58 AM Dictation Location: [place] [address] Electronically authenticated by: [id number] Y Date: 9:58 Dictated By: Yari Gupta M.D. Signed By:12/13/24 1001 DD/ 0958 TD/TT: Fiscal Technician: us Jessie Hope DO CLINISYNC IMAGING Final Result from Last 3 Months Insurance BCBS Care Teams Outside Rigger Relationship Specialty Start Date End Date Reji Duqeu MD [address] [place] [phone] PCP - General Family Medicine 02/10/23
--- OUTSIDE RECORDS SUMMARY | 2025-03-02 06:19 | XMS_ITS | Encounter Summary ---
Author Organization [facility] Address [address] [place] [address] Care Team Providers Care Welding Machine Tender Name Role Phone Reji Duque MD Primary Care Provider [phone] Encounter Details Date Type Department Care Team (Late st Contact Info) Description 02/21/2025 Clinisync Result Encounter NOMS External Department Unsolicited Jessie Hope DO [address] [place] [address] Social History Tobacco Use Types Packs/Day Years [...] 8:30 AM EDT Office Visit NOMSarah ODEN [address] [place] [phone] Adrienne Lutz PA [address] [place] [address] 04/13/2025 8:30 AM EDT Office Visit NOMSarah ODEN [address] [facility] [place] [address] Adrienne Lutz PA [address] [facility] [address] [place], [place] [address] 01/18/2026 4:00 PM EDT Office Visit NOMS Shanika HERNANDEZGYN [address] [facility] [place] [address] Jessie Hope DO [address] [facility] [place] [address] documented as of this encounter Procedures Procedure Name Priority Date/Time Associated Diagnosis Comments SRMCOH PROTHROMBIN TIME INR W/O COUM Routine 02/21/2025 11:02 AM EDT HMHP LIVER PANEL Routine 02/21/2025 11:0 2 AM EDT CCF APTT Routine 02/21/2025 11:02 AM EDT ALL TYPE AND SCREEN Routine 02/21/2025 1 1:02 AM EDT ALL CBC WITH AUTO DIFF Routine 02/21/2025 11:02 AM EDT ALL BASIC METABOLIC PANEL Routine 02/21/2025 11:02 AM EDT XR CHEST 2V 02/21/2025 10:52 AM EDT documented in this encounter Results * ALL BASIC METABOLIC PANEL (02/21/2025 11:02 [...] 0.55 - 1.02 mg/dL TBH TBH EGFR-AF GUAMANIAN >60 >=60 mL/min/1.7 3m 2 TBH TBH EGFR-NON AF GUAMANIAN >60 >=60 mL/min/1.7 3m 2 TBH BUN CREATININE RATIO 15.6 TBH CALCIUM 9.0 8.5 - 10.1 mg/dL TBH 02/21/2025 11:0 2 AM EDT 02/21/2025 11:08 AM EDT Narrative CLINISYNC - 02/21/2025 3:01 PM EDT Jessie Herminia DO CLINISYNC Final Result Performing Organization Address City/[facility] Co de Phone Number [facility] LIVER PANEL (02/21/2025 11:02 AM EDT) BILIRUBIN [...] EDT Jessie Herminia DO CLINISYNC Final Result [facility] * ALL TYPE AND SCREEN (02/21/2025 11:02 AM EDT) BLOOD TYPE A Positive TBH ANTIBODY SCREEN NEGATIVE TBH 02/21/2025 11:0 2 AM EDT 02/21/2025 11:08 AM EDT Narrative CLINISYNC - 02/21/2025 12:44 PM EDT [facility] , Jessie Belloo DO CLINISYNC Final Result [facility] * [facility] APTT (02/21/2025 11:02 AM EDT) PARTIAL THROMBOPLASTIN TIME 26.1 22.3 - 36.2 sec TB 02/21/2025 11:0 2 AM EDT 02/21/2025 11:08 AM EDT Narrative CLINISYNC - 02/21/2025 11:50 AM EDT Jessieruby Hope DO CLINISYLALY Final Result Performing Organization Address [facility]/ZIP Co de Phone Number [facility] * [facility] PROT[facility] TIME INR W/O COUM (02/21/2025 11:02 AM EDT) PROTHROMBIN TIME 9.8 9.0 - 11.6 sec TBH TBH INR <0.93 TBH Comment: DESIRED INR: 2.0-3.0 CONDITIONS NOT LISTED BELOW 2.5-3.5 FOR PROSTHETIC HEART VALVE REPLACEMENT 2.5-3.5 RECURRENT THROMBOSIS 02/21/2025 11:0 2 AM EDT 02/21/2025 11:08 AM EDT Narrative CLINISYNC - 02/21/2025 11:50 AM EDT Jessieruby Belloo DO CALEB Final Result [facility] * (ABNORMAL) ALL CBC WITH AUTO DIFF (02/21/2025 11:02 AM EDT) TBH WBC 6.4 4.0 - 11.0 10 3/uL TBH TBH RBC 3.99(L) 4.20 - 5.40 10 6/uL [...] - 02/21/2025 11:22 AM EDT us Jessie Herminia DO CLINISYNC Final Result [facility] * XR CHEST 2V (02/21/2025 10:52 AM EDT) Anatomical Region Laterality Modality Other 02/21/2025 10:5 2 AM EDT Narrative 02/21/2025 10:54 AM EDT [address] [address] XRay Report Signed Patient: KEYLA HUNT MR#: [id number] : 1980 Acct:[id number] Age/Sex: 44 / F ADM Date: 02/21/25 Loc: PST Attending Dr: Jessie Hope D.O. Ordering Physician: Jessie Hope D.O. Date of Service: 02/21/25 Procedure(s): XR chest 2V Accession Number(s): [id number] cc: Jessie Hope D.O.; Reji Duque M.D. The [place] [address] Patient Name: KEYLA HUNT MRN: [id number] date: 1980 Sex: F Assigned Patient Location: [facility] Current Patient Location: [facility] Accession/Order Number: [id number] Exam Date: 02/21/2025 10:51 Report Date: 02/21/2025 10:52 At the request of: JESSIE HOPE DO Procedure: XR chest 2V Chest 2 views CLINICAL HISTORY: Preop exam COMPARISON: Chest 07/07/2023 FINDINGS: Heart normal size. Lungs are clear. No free air. XR/XR chest 2V IMPRESSION: NO ACUTE CARDIOPULMONARY ABNORMALITY. Impression dictated by: Sriram Berry Jr., D.O. 02/21/2025 10:52 AM Dictation Location: [place] [address] Electronically authenticated by: [id number] Y Date: 02/21/2025 10:52 Dictated By: Sriram Berry M.D. Signed By: 02/21/25 1054 DD/ 1052 TD/TT: Balance Wheel Screw Hole Driller: Procedure Note Radiology, Radiologist, MD - 02/21/2025 [place] [address] XRay Report Signed Patient: KEYLA HUNT JMR#: [id number] : 1980Acct:[id number] Age/Sex: 44 / FADM Date: 02/21/25 Loc: PST Attending Dr: Jessie Hope D.O. Ordering Physician: Jessie Hope D.O. Date of Service: 02/21/25 Procedure(s): XR chest 2V Accession Number(s): [id number] cc: Jessie Hope D.O.; Reji Duque M.D. [place] [address] [place], [place] [id number] Patient Name: KEYLA HUNT MRN: [id number] date: 1980 Sex: F Assigned Patient Location: [facility] Current Patient Location: [facility] Accession/Order Number: [id number] Exam Date: 02/21/2025 10:51 Report Date: 02/21/2025 10:52 At the request of: JESSIE HOPE DO Procedure: XR chest 2V Chest 2 views CLINICAL HISTORY: Preop exam COMPARISON: Chest 07/07/2023 FINDINGS: Heart normal size. Lungs are clear. No free air. XR/XR chest 2V IMPRESSION: NO ACUTE CARDIOPULMONARY ABNORMALITY. Impression dictated by: Sriram Berry Jr., D.O. 02/21/2025 10:52 AM Dictation Location: [place] [id number] Electronically authenticated by: [id number] Y Date: 0:52 Dictated By: Sriram Berry M.D. Signed By:02/21/25 1054 DD/ 1052 TD/TT: Balance Wheel Screw Hole Driller: Jessie Hope DO [facility] Final Result documented in this encounter Visit Diagnoses Not on filedocumented in this encounter Care Teams Welding Machine Tender Relationship Specialty Start Date End Date Reji Duque MD [address] [place] [id number] PCP - General Family Medicine 02/10/23 documented as of this encounter
--- OUTSIDE RECORDS SUMMARY | 2025-03-02 06:20 | XMS_ITS | CCD ---
Author Organization [facility] Care Team Providers Care Medical Secretary Name Role Phone Jody Carey Unavailable ANGEL, [...] Care Provider Jessie Hope DO Attending Provider [phone] JESSIE HOPE Attending Unavailable JESSIE HOPE Attending [...] times daily loratadine 10 mg oral tablet (7 sources) loratadine (Claritin) 10 MG tablet Take 10 mg by mouth if needed for allergies Active methylPREDNISolone 4 mg oral tablet (2 sources) Corticosteroid Start: 05-25-2024 take 1 tablet by mouth once Completed/Discontinued Medications Medication Drug Class(es) Dates Sig (Normalized) Sig (Original) [id number] 200 actuat albuterol 0.09 mg/actuat metered dose [...] irregular cycle] 11-23-2024 Chronic Other endocrine disorders (11 sources) Disorder of endocrine system; Translations: [Endocrine [...] (SUSP) EXPOS COVID-19] Onset: 04-22-2022 Viral infection (13 sources) Plantar wart of right foot; Translations: [Plantar wart] Onset: 02-05-2023 02-05-2023 Episodic Results Test Name Value Interpretation Reference Range Facility XR CHEST 2Von 02-21-[address] [address] XRay Report Signed Patient: KEYLA KEITH MR#: [id number] : 1980 Acct:[id number] Age/Sex: 44 / F ADM Date: 02/21/25 Loc: PST Attending Dr: Jessie Hope D.O. Ordering Physician: Jessie Hope D.O. Date of Service: 02/21/25 Procedure(s): XR chest 2V Accession Number(s): [id number] cc: Jessie Hope D.O.; Bennett Duque M.D. The [address] [id number] Patient Name: KEYLA KEITH MRN: [facility]:[id number] date: 1980 Sex: F Assigned Patient Location: [facility] Current Patient Location: [facility] Accession/Order Number: [id number] Exam Date: 02/21/2025 10:51 Report Date: 02/21/2025 10:52 At the request of: JESSIE HOPE DO Procedure: XR chest 2V Chest 2 views CLINICAL HISTORY: Preop exam COMPARISON: Chest 07/07/2023 FINDINGS: Heart normal size. Lungs are clear. No free air. XR/XR chest 2V IMPRESSION: NO ACUTE CARDIOPULMONARY ABNORMALITY. Impression dictated by: Sriram Berry Jr., D.O. 02/21/2025 10:52 AM Dictation Location: [place] [address] Electronically authenticated by: [id number] Y Date: 02/21/2025 10:52 Dictated By: Sriram Berry M.D. Signed By: 02/21/25 1054 DD/ 1052 TD/TT: Engineering And Scientific Programmer: [facility] Radiology, Radiologist, MD - 02/21/2025 [place] [address] XRay Report Signed Patient: KEYLA KEITH MR#: [id number] : 1980 Acct:[id number] Age/Sex: 44 / F ADM Date: 02/21/25 Loc: [facility] Attending Dr: Jessie Hope D.O. Ordering Physician: Jessie Hope D.O. Date of Service: 02/21/25 Procedure(s): XR chest 2V Accession Number(s): [id number] cc: Jessie Hope D.O.; Bennett Duque M.D. [address] [address] Patient Name: KEYLA KEITH MRN: [id number]:[id number] date: 1980 Sex: F Assigned Patient Location: [facility] Current Patient Location: [facility] Accession/Order Number: [id number] Exam Date: 02/21/2025 10:51 Report Date: 02/21/2025 10:52 At the request of: JESSIE HOPE DO Procedure: XR chest 2V Chest 2 views CLINICAL HISTORY: Preop exam COMPARISON: Chest 07/07/2023 FINDINGS: Heart normal size. Lungs are clear. No free air. XR/XR chest 2V IMPRESSION: NO ACUTE CARDIOPULMONARY ABNORMALITY. Impression dictated by: Sriram Berry Jr., D.O. 02/21/2025 10:52 AM Dictation Location: [place] [address] Electronically authenticated by: [id number] Y Date: 02/21/2025 10:52 Dictated By: Sriram Berry M.D. Signed By: 02/21/25 1054 DD/ 1052 TD/TT: Engineering And Scientific Programmer: [facility] Radiology Study observation (narrative) [facility] XR CHEST 2VOrdered By: [facility] Radiology on 02-21-2025 [facility] [employer] Work Phone: MM TOMOSYNTHESIS SCREENING B Ion 02-10-2025 [place] [address] Mammography Report Signed Patient: KEYLA KEITH MR#: [id number] : 1980 Acct:[id number] Age/Sex: 44 / F ADM Date: 02/10/25 Loc: MAMMO Attending Dr: Jessie Hope D.O. Ordering Physician: Jessie Hope D.O. Results: Date of Service: 02/10/25 Follow Up: Procedure(s): MM tomosynthesis screening BI Accession Number(s): [id number] cc: Jessie Hope D.O.; Bennett Duque M.D. Patient Name: KEYLA KEITH MR#: [id number] : 1980 Exam Date: 02/10/2025 Ordering Doctor: [...] breast cancer at age 45. LOCATION: [facility] BREAST COMPOSITION: The breasts are heterogeneously [...] D.O. Signed By: 02/10/251650 DD/ 49 TD/TT: Engineering And Scientific Programmer: [facility] Radiology, Radiologist, MD - 02/10/2025 [place] [address] Mammography Report Signed Patient: KEYLA KEITH MR#: [id number] : 1980 Acct:[id number] Age/Sex: 44 / F ADM Date: 02/10/25 Loc: MAMMO Attending Dr: Jessie Hope D.O. Ordering Physician: Jessie Hope D.O. Results: Date of Service: 02/10/25 Follow Up: Procedure(s): MM tomosynthesis screening BI Accession Number(s): [id number] cc: Jessie Hope D.O.; Bennett Duque M.D. Patient Name: KEYLA KEITH MR#: [id number] : 1980 Exam Date: 02/10/2025 Ordering Doctor: [...] breast cancer at age 45. LOCATION: [facility] BREAST COMPOSITION: The breasts are heterogeneously [...] D.O. Signed By: 02/10/251650 DD/ 49 TD/TT: Engineering And Scientific Programmer: [facility] [employer] Radiology Study [facility]narrative) [facility] MM TOMOSYNTHESIS SCREENING B IOrdered By: Radiologist Radiology on 02-10-2025 [facility] [employer] Work Phone: PATHOLOGY REQUEST FOR LAB CO RPon 02-09-2025 PATHOLOGY REQUEST FOR LAB CARMEN [facility] [employer] Comment on above: See report. Scanned copy available in EMR. SEND OUT- ENDOMETRIUM [facility] [employer] HCG ( test) Ql (U)O rdered By: Cathleen Dubon on 02-01-2025 Interpretation and review of laboratory results Normal [facility] [employer] Preg Test, Ur Negative Negative [facility] [employer] [facility] Pathology Request for Lab Co rpon 02-01-2025 Pathology Request for Lab Carmen Normal [facility] Comment on above: Order Comment: IGLESIA SE ND OUT- ENDOMETRIUM Result Comment: See report. Scanned copy available in EMR. PERFORMED BY: [facility] [address] [facility] [place] [id number] PATHOLOGIST BOOK SEWING MACHINE OPERATOR ETHAN MEANS M.D. Performed By: #### P ATH TO LABCO #### [place] [id number] [facility] IGP,APTIMA HPV,AGE GDLNon AGE GDLN ACOG TESTING Note . [facility] Comment on above: TESTS RESULT FLAG UN ITS REF RANGE LAB Clinician Provided Cytology Information Source.............Cervix No. of containers..01 ThinPrep Vial Age Algo ACOG Kirstie... 3065 FLAG LEGEND: L-Low Normal,H-High Normal,LL-Alert Low,HH-Alert High <-Panic Low,>-Panic High,A-Abnormal,AA-Critical Abnormal Performed at: 01 =G [address] [address] Yamila Cotter MD, HPV APTIMA Negative Negative [facility] Comment on above: This nucleic acid am plification test detects fourteen high- risk HPV types (16,18,31,33,35,39,45,51,52,56,58,59,66,68) without differentiation. Performed at: =G - Lab[address] [id number] Embedded Software Programmer: Yamila Cotter MD, Phone: [phone] Performed at: - [facility], [place] [id number] Embedded Software Programmer: Yamila Cotter MD, Phone: [phone] IGP, APTIMA HPV, RFX 16/18,45 Note . [facility] Comment on above: TESTS RESULT FLAG UN ITS REF RANGE LAB DIAGNOSIS: 02 NEGATIVE FOR INTRAEPITHELIAL LESION OR MALIGNANCY. Specimen adequacy: 02 Satisfactory for evaluation. No endocervical component is identified. Performed by: 02 Rod Ro, Director Of Group Counseling Program ([facility]) . 02 Note: Note 02 The Pap [...] <-Panic Low,>-Panic High,A-Abnormal,AA-Critical Abnormal Performed at: [address] [facility] [address] [place] [address] Yamila Cotter MD, BRUSH-SPATULA CERVIX [facility] US PELVIS W/ TRANSVAGINALon 12-13-2024 [place] [address] Ultrasound Report Signed Patient: KEYLA KEITH MR#: [id number] : 1980 Acct:[id number] Age/Sex: 44 / F ADM Date: 12/11/24 Loc: US Attending Dr: Jessie Hope D.O. Ordering Physician: Jessie Hope D.O. Date of Service: 12/11/24 Procedure(s): US pelvis w/ transvaginal Accession Number(s): [id number] cc: Jessie Hope D.O.; Bennett Duque M.D. [address] [address] Patient Name: KEYLA KEITH MRN: [id number]:[id number] date: 1980 Sex: F Assigned Patient Location: US Current Patient Location: Accession/Order Number: [id number] Exam Date: 12/13/2024 09:53 Report Date: 12/13/2024 [...] Gupta M.D. 12/13/2024 9:58 AM Dictation Location: [place] [address] Electronically authenticated by: [id number] Y Date: 12/13/2024 09:58 Dictated By: Yari Gupta M.D. Signed By: 12/13/24 1001 DD/ 0958 TD/TT: Engineering And Scientific Programmer: [facility] Radiology, Radiologist, MD - 12/13/2024 [place] [address] Ultrasound Report Signed Patient: KEYLA KEITH MR#: [id number] : 1980 Acct:[id number] Age/Sex: 44 / F ADM Date: 12/11/24 Loc: US Attending Dr: Jessie Hope D.O. Ordering Physician: Jessie Hope D.O. Date of Service: 12/11/24 Procedure(s): US pelvis w/ transvaginal Accession Number(s): [id number] cc: Jessie Hope D.O.; Bennett Duque M.D. The [address] [id number] Patient Name: KEYLA KEITH MRN: [facility]:[id number] date: 1980 Sex: F Assigned Patient Location: [place] Current Patient Location: Accession/Order Number: [id number] Exam Date: 12/13/2024 09:53 Report Date: 12/13/2024 [...] Gupta M.D. 12/13/2024 9:58 AM Dictation Location: [place] [address] Electronically authenticated by: [id number] Y Date: 12/13/2024 09:58 Dictated By: Yari Gupta M.D. Signed By: 12/13/24 1001 DD/ 0958 TD/TT: Engineering And Scientific Programmer: [facility] Radiology Study observation (narrative) [facility] US PELVIS W/ TRANSVAGINALOrd ered By: Radiologist Radiology on 12-13-[address] [facility] Work Phone: ALL CBC WITH AUTO DIFFon BASOPHILS ABSOLUTE AUTO 0 N [facility] Basophils/100 WBC (Bld) 0.3 % 0.2 - 2.0 % [facility] Eosinophils/100 WBC (Bld) 2.3 % 0.9 - 7.0 % [facility] Erythrocyte distribution width (RBC) [Ratio] 12.2 % 11.0 - 15.0 % [facility] Hematocrit (Bld) [Volume fraction] 42.6 % 36.0 - 48.0 % [facility] Hemoglobin (Bld) [Mass/Vol] 14 g/dL 12.0 - 16.0 g/dL [facility] IMMATURE GRANULOCYTES ABS AUTO 0.01 [facility] Immature granulocytes/100 WBC (Bld) 0.1 % 0.0 - 0.5 % [facility] Interpretation and review of laboratory results Abnormal [facility] LYMPHOCYTES ABSOLUTE AUTO 1.9 [facility] Lymphocytes/100 WBC (Bld) 26.2 % 20.5 - 60.0 % [facility] MCH (RBC) [Entitic mass] 32.6 pg 26.7 - 34.0 pg [facility] MCHC (RBC) [Mass/Vol] 32.9 g/dL 29.9 - 35.2 g/dL [facility] MCV (RBC) [Entitic vol] 99.1 fL High 81.0 - 99.0 fL [facility] MONOCYTES ABSOLUTE AUTO 0.4 N [facility] Monocytes/100 WBC (Bld) 5.1 % 1.7 - 12.0 % [facility] NEUTROPHILS ABSOLUTE AUTO 4.9 [facility] Neutrophils/100 WBC (Bld) 66 % 43.0 - 75.0 % [facility] Platelet mean volume (Bld) [Entitic vol] 9.4 fL Low 9.5 - 13.5 fL [facility] TBH EO # 0.2 [facility] TB PLT 207 [facility] TB RBC 4.3 [facility] Health[facility] e TBH WBC 7.4 [facility] Health[facility] e [facility] e Urinalysis macro (dipstick) panel (U)on 11-23-2024 Bilirubin, UA Negative Negative - 4(70) +++ mg/dL [facility] Blood, UA Positive Negative - 50 Marvin/mcL [facility] Comment on above: moderate Clarity, UA Clear [facility] Healthsd re Color, UA Yellow [facility] Glucose, UA Negative Negative - 1999(110) ++++ mg/dL [facility] Interpretation and review of laboratory results Abnormal [facility] Ketones, UA Negative Negative - 160(16) ++++ mg/dL [facility] Leukocytes, UA Negative Negative - 500+++ Nilo/mcL [facility] Nitrite, UA Negative Negative - Positive [facility] pH, UA 5.5 5 - 9 [facility] e Protein, UA Trace Negative - 1999(20) ++++ mg/dL [facility] Spec Grav, UA 1.03 1 - 1.03 [facility] Urobilinogen, UA 0.2 0.2 - 12 mg/dL [facility] Cytology Cervical or vaginal smear or scraping studyOrdered By: Cathleen Dubon on 03-14-2023 [facility] Healthcar e CBC AUTO DIFFon 08-29-2022 BASO # 0.0 103/ul Normal 0.0-0.1 [facility] Comment on above: Performed By: #### C BC ####[facility] [address] [place] [address]Dr. Manuel Fair Basophils/100 WBC (Bld) 0.2 % Normal 0.2-2.0 [facility] Comment on above: Performed By: #### C BC ####[facility] [address] [place], [place] [address]Dr. Manuel Fair EO # 0.2 103/ul Normal 0.0-0.7 [facility] Comment on above: Performed By: #### C BC ####[facility] [address] [place], [place] [address]Dr. Manuel Fair Eosinophils/100 WBC (Bld) 2.9 % Normal 0.9-7.0 [facility] Comment on above: Performed By: #### C BC ####[facility] [address] [place], [place] [address]Dr. Manuel Fair Erythrocyte distribution width (RBC) [Ratio] 12.2 % Normal 11.0-15.0 [facility] Comment on above: Performed By: #### C BC ####[facility] [address] [place], [place] [address]Dr. Manuel Fair Hematocrit (Bld) [Volume fraction] 44.2 % Normal 36.0-48.0 [facility] Comment on above: Performed By: #### C BC ####[facility] Bu[address] [place], [place] [address]Dr. Manuel Fair Hemoglobin (Bld) [Mass/Vol] 13.2 g/dL Normal 12.0-16.0 [facility] Comment on above: Performed By: #### C BC ####[facility] [address] [place] [address]Dr. Manuel Fair IG # 0.01 10e3/ul Normal 0.00-0.03 [facility] Comment on above: Performed By: #### C BC ####[facility] [address] [place], [place] [address]DrAugustus Manuel Marv IG % 0.2 % Normal 0.0-0.5 [facility] Comment on above: Performed By: #### C BC ####[facility] [address] [place], [place] [address]DrAugustus Manuel Marv LYMPH # 2.1 103/ul Normal 1.2-3.8 [facility] Comment on above: Performed By: #### C BC ####[facility] [address] [place], [place] [address]DrAugustus Lauraperri Fair Lymphocytes/100 WBC (Bld) 33.7 % Normal 20.5-60.0 [facility] Comment on above: Performed By: #### C BC ####[facility] [address] [place], [place] [address]DrAugustus Lauraperri Fair MANUAL DIFF REQ NO Normal [facility] Comment on above: Performed By: #### C BC ####[facility] [address] [place], [place] [address]DrAugustus Manuel Fair MCH (RBC) [Entitic mass] 32.1 pg Normal 26.7-34.0 [facility] Comment on above: Performed By: #### C BC ####[facility] [address] [place], [place] [address]DrAugustus Manuel Marv MCHC (RBC) [Mass/Vol] 29.9 g/dL Normal 29.9-35.2 [facility] Comment on above: Performed By: #### C BC ####[facility] [address] [place], [place] [address]DrAugustus Manuel Marv MCV (RBC) [Entitic vol] 107.5 fL Critically high 81.0-99 .0 [facility] Comment on above: Performed By: #### C BC ####[facility] Wh[address] [place], [place] [address]Dr. Manuel Fair MONO # 0.3 103/ul Normal 0.3-0.8 [facility] Comment on above: Performed By: #### C BC ####[facility] [address] [place] [address]Dr. Manuel Fair Monocytes/100 WBC (Bld) 5.2 % Normal 1.7-12.0 [facility] Comment on above: Performed By: #### C BC ####[facility] [address] [place] [address]Dr. Manuel Fair NEUT # 3.5 103/ul Normal 1.4-6.5 [facility] Comment on above: Performed By: #### C BC ####[facility] [address] [place], [place] [address]Dr. Manuel Fair Neutrophils/100 WBC (Bld) 57.8 % Normal 43.0-75.0 [facility] Comment on above: Performed By: #### C BC ####[facility] Y[address] [place], [place] [address]Dr. Manuel Fair Platelet mean volume (Bld) [Entitic vol] 9.8 fL Normal 9.5-13.5 [facility] Comment on above: Performed By: #### C BC ####[facility] [address] [place] [address]Dr. Manuel Fair PLT 214 103/ul Normal 150-450 [facility] Comment on above: Performed By: #### C BC ####[facility] [address] [place], [place] [address]Dr. Manuel Fair RBC 4.11 106/ul Critically low 4.20-5.40 [facility] Comment on above: Performed By: #### C BC ####[facility] [address] [place], [place] [address]Dr. Manuel Fair WBC 6.1 103/ul Normal 4.0-11.0 [facility] Comment on above: Performed By: #### C BC ####[facility] C[address] [place], [place] [address]Dr. Yiperri Fair FREE THYROXINE INDEX T7on FTI 2.56 Normal 1.30-4.50 [facility] Comment on above: Performed By: #### T 7, TSH, LIPID, CMP #### [facility] [address] [place] [address] [address] Manuel Fair T3U 36.0 % Normal 30.0-39.0 [facility] Comment on above: Performed By: #### T 7, TSH, LIPID, CMP #### [facility] [address] [place] [address] [address] Manuel Fair T4 [Mass/Vol] 7.10 ug/dL Normal 4.80-13.90 [facility] Comment on above: Performed By: #### T 7, TSH, LIPID, CMP #### [facility] [address] [place] [address] [address] Manuel Fair GLYCOHEMOGLOBIN A1Con 2022 ADA RECOMMENDATION SEE BELOW Normal The [facility] Comment on above: Result Comment: ADA RECOMMENDED LIMIT 4.0 - 6.0 ADA THERAPEUTIC TARGET < 7.0 ACTION SUGGESTED > 7.0 Performed By: #### A 1C #### [facility] [address] [place] [address] [address] Manuel aFir Glucose [Mass/Vol] 111 mg/dL Normal [facility] Comment on above: Performed By: #### A 1C #### [facility] [address] [place] [address] [address] Manuel Fair HbA1c (Bld) [Mass fraction] 5.5 % Normal 4.5-6.2 [facility] Comment on above: Performed By: #### A 1C #### [facility] [address] [place] [address] Dr. Manuel Fair LIPID PROFILEon 08-29-2022 CHOL-HDL RATIO NORM SEE BELOW Normal [facility] Comment on above: Result Comment: 3.3 - 4.4 LOW RISK 4.4 - 7.1 AVERAGE RISK 7.1 - 11.0 MODERATE RISK >11.0 HIGH RISK Performed By: #### T 7, TSH, LIPID, CMP #### [facility] [address] [place] [address] [address] Manuel Fair Cholesterol [Mass/Vol] 183 mg/dL Normal <=200 Th [facility] Comment on above: Performed By: #### T 7, TSH, LIPID, CMP #### [facility] [address] [place] [address] Dr. Manuel Fair Cholesterol in HDL [Mass/Vol] 44 mg/dL Normal 40-60 [facility] Comment on above: Performed By: #### T 7, TSH, LIPID, CMP #### [facility] [address] [place] [address] Dr. Manuel Fair Cholesterol in LDL [Mass/Vol] 111.2 mg/dL Normal [facility] Comment on above: Performed By: #### T 7, TSH, LIPID, CMP #### [facility] [address] [place] [address] Dr. Manuel Fair Cholesterol.total/Lucina sterol in HDL [Mass ratio] 4.2 {ratio} Normal [facility] Comment on above: Performed By: #### T 7, TSH, LIPID, CMP #### [facility] [address] [place] [address] Dr. Manuel Fair HDL NORMAL > or = 60 mg/dl - LOW CARDIOVASCULAR RISK <40 mg/dl - HIGH CARDIOVASCULAR RISK Normal [facility] Comment on above: Performed By: #### T 7, TSH, LIPID, CMP #### [facility] [address] [place] [address] Dr. Manuel Fair LDL CALC NORMAL SEE BELOW Normal [facility] Comment on above: Result Comment: <100 mg/dl OPTIMAL 100 - 129 mg/dl NEAR OR ABOVE OPTIMAL 130 - 159 mg/dl BORDERLINE HIGH 160 - 189 mg/dl HIGH >190 mg/dl VERY HIGH Performed By: #### T 7, TSH, LIPID, CMP #### [facility] [address] [place] [address] Dr. Manuel Fair Triglyceride [Mass/Vol] 139 mg/dL Normal <=150 T [facility] Comment on above: Performed By: #### T 7, TSH, LIPID, CMP #### [facility] [address] [place] [address] Dr. Manuel Fair VLDL CALC 27.8 mg/dL Normal [facility] Comment on above: Performed By: #### T 7, TSH, LIPID, CMP #### [facility] [address] [place] [address] [address] Manuel Fair MG MAMM [place] DIAG W CADon MG MAMM [place] DIAG W CAD Patient: KEYLA KEITH Exam Date: 08/29/2022 : 1980 Gender:F Ordering : PRERNA SOUSA . Admission #: [id number] Family : DR JESSIE HOPE . Order #: [id number] CLICK HERE TO VIEW EXAM RADIOLOGY REPORT [...] colon cancer at age 63. LOCATION: [facility] BREAST COMPOSITION: Heterogeneously dense,which may [...] M.D. on 08/29/2022 at 10:34 Normal [facility] PROF 14(COMP METB)on 023 Albumin [Mass/Vol] 3.7 g/dL Normal 3.4-5.0 [facility] Comment on above: Performed By: #### T 7, TSH, LIPID, CMP #### [facility] [address] [place] [address] [address] Manuel Fair Albumin/Globulin [Mass ratio] 1.1 {ratio} Normal [facility] Comment on above: Performed By: #### T 7, TSH, LIPID, CMP #### [facility] [address] [place] [address] [address] Manuel Fair ALP [Catalytic activity/Vol] 73 U/L Normal 46-116 [facility] Comment on above: Performed By: #### T 7, TSH, LIPID, CMP #### [facility] [address] [place] [address] [address] Manuel Fair ALT [Catalytic activity/Vol] 21 U/L Normal 14-59 [facility] Comment on above: Performed By: #### T 7, TSH, LIPID, CMP #### [facility] [address] [place] [address] Dr. Manuel Fair Anion gap [Moles/Vol] 11.1 mmol/L Normal [facility] Comment on above: Performed By: #### T 7, TSH, LIPID, CMP #### [facility] [address] [place] [address] [address] Manuel Fair AST [Catalytic activity/Vol] 15 U/L Normal 15-37 [facility] - [place] Comment on above: Performed By: #### T 7, TSH, LIPID, CMP #### [facility] [address] [address] [address] Manuel Fair Bilirubin [Mass/Vol] 0.4 mg/dL Normal 0.2-1.0 [facility] [place] Comment on above: Performed By: #### T 7, TSH, LIPID, CMP #### [facility] [address] [address] [address] Manuel Fair Calcium [Mass/Vol] 8.9 mg/dL Normal 8.5-10.1 [facility] Comment on above: Performed By: #### T 7, TSH, LIPID, CMP #### [facility] [address] [address] [address] Manuel Fair Chloride [Moles/Vol] 103 mmol/L Normal 98-107 [facility] [place] Comment on above: Performed By: #### T 7, TSH, LIPID, CMP #### [facility] [address] [address] [address] Manuel Fair CO2 [Moles/Vol] 29.8 mmol/L Normal 21.0-32.0 [facility] Comment on above: Performed By: #### T 7, TSH, LIPID, CMP #### [facility] [address] [place] [address] Dr. Manuel Fair Creatinine [Mass/Vol] 0.60 mg/dL Normal 0.55-1.02 [facility] [place] Comment on above: Performed By: #### T 7, TSH, LIPID, CMP #### [facility] [address] [place] [address] Dr. Manuel Fair EGFR-AF PERUVIAN >60 Normal >=60 [facility] Comment on above: Performed By: #### T 7, TSH, LIPID, CMP #### [facility] [address] [place] [address] Dr. Manuel Fair EGFR-NON AF PERUVIAN >60 Normal >=60 [facility] [place] Comment on above: Performed By: #### T 7, TSH, LIPID, CMP #### [facility] [address] [place] [address] Dr. Manuel Fair Globulin (S) [Mass/Vol] 3.3 g/dL Normal T [facility] Comment on above: Performed By: #### T 7, TSH, LIPID, CMP #### [facility] [address] [address] [address] Manuel Fair Glucose [Mass/Vol] 91 mg/dL Normal 74-106 [facility] Comment on above: Performed By: #### T 7, TSH, LIPID, CMP #### [facility] [address] [place] [address] Dr. Manuel Fair Potassium [Moles/Vol] 3.9 mmol/L Normal 3.5-5.1 [facility] [place] Comment on above: Performed By: #### T 7, TSH, LIPID, CMP #### [facility] [address] [place] [address] Dr. Manuel Fair Protein [Mass/Vol] 7.0 g/dL Normal 6.4-8.2 [facility] Comment on above: Performed By: #### T 7, TSH, LIPID, CMP #### [facility] [address] [address] [address] Manuel Fair Sodium [Moles/Vol] 140 mmol/L Normal 136-[address] [facility] Comment on above: Performed By: #### T 7, TSH, LIPID, CMP #### [facility] [address] [address] [address] Manuel Fair Urea nitrogen [Mass/Vol] 9.0 mg/dL Normal 7.0-18.0 [facility] [place] Comment on above: Performed By: #### T 7, TSH, LIPID, CMP #### [facility] [address] [address] [address] Manuel Fair Urea nitrogen/Creatinine [Mass ratio] 15.0 mg/mg Normal [facility] [place] Comment on above: Performed By: #### T 7, TSH, LIPID, CMP #### [facility] [address] [address] [address] Manuel Fair TSHon 08-29-2022 TSH 2.065 uIU/mL Normal 0.358-3.740 [facility] Comment on above: Performed By: #### T 7, TSH, LIPID, CMP #### [facility] [address] [address] [address] Manuel Fair US BREAST LEFT LIMITEDon US BREAST LEFT LIMITED Patient: KEYLA KEITH Exam Date: 08/29/2022 : 1980 Gender:F Ordering : PRERNA SOUSA . Admission #: [id number] Family : DR JESSIE HOPE . Order #: [id number] CLICK HERE TO VIEW EXAM RADIOLOGY REPORT PROCEDURE: MAMMOGRAM BILATERAL DIAGNOSTIC DIGITAL WITH COMPUTER AIDED DETECTION, 08/29/2022, 09:22 ULTRASOUND BREAST LEFT LIMITED, 08/29/2022, 09:58 COMPARISON: MG MAMM SCREEN 3D [place] CAD, 01/24/2022. INDICATIONS: Pain of breast Calculator Name [facility] Breast Cancer Risk Assessment Tool 5 Year Breast Cancer Risk 0.80% Lifetime Breast Cancer Risk 13.60% Personal Breast Cancer No Personal Ovarian Cancer No Treatments None Family Cancers Mother with colon cancer at age 62. LOCATION: [facility] BREAST COMPOSITION: Heterogeneously dense,which may [...] M.D. on 08/29/2022 at 10:34 Normal [facility] COVID/FLU/RSV RT-PCRon 07-31 SARS-CoV-2 (COVID-19) RNA WAYNE+probe Ql (Unsp spec) Negative [email or web address] Other COVID/FLU/RSV RT-PCR Positive [facility] Other COVID/FLU/RSV RT-PCR Negative [facility] [employer] Other [facility]on 04-04 SARS-CoV-2 (COVID-19) RNA WAYNE+probe Ql (Unsp spec) Not detected Normal NOT DETECTED [facility] Comment on above: Result Comment: This test is not yet approved or cleared by the [place] FDA. When there are no FDA-approved or cleared tests available, and other criteria are met, FDA can make tests available under an emergency access mechanism called an Emergency Use Authorization (EUA). The EUA for this test is supported by the [place] Inspectors of Health and Human Service's (HHS's) declaration [...] SARS-CoV-2. Performed By: #### C VDTB #### [facility] [address] [place] [address] Dr. Manuel Fair PAP ACOG PANEL 2: 30 to 65on 02-09-2022 . . Normal [facility] [place] Comment on above: Result Comment: Perf ormed at: WB Performed By: #### [id number] #### [facility] [address] [place] [address] Dr. Manuel Fair Age Gdln ACOG Testing 30-65 Normal [facility] [place] Comment on above: Performed By: #### [id number] #### [facility] [address] [place] [address] Dr. Manuel Fair DIAGNOSIS: Comment Normal [facility] [place] Comment on above: Result Comment: NEGA TIVE FOR INTRAEPITHELIAL LESION OR MALIGNANCY. Performed at: WB Performed By: #### [id number] #### [facility] [address] [place] [address] Dr. Manuel Fair HPV Aptima Negative Normal Negative [facility] [place] Comment on above: Result Comment: This nucleic acid amplification test detects fourteen high-risk HPV types (16,18,31,33,35,39,45,51,52,56,58,59,66,68) without differentiation. Performed at: =G Performed By: #### [id number] #### [facility] [address] [place] [address] Dr. Manuel Fair Methodology: Comment Normal [facility] [place] Comment on above: Result Comment: This liquid based ThinPrep(R) pap test was screened with the use of an image guided system. Performed at: WB Performed By: #### [id number] #### [facility] [address] [place] [address] Dr. Manuel Fair Note: Comment Normal [facility] [place] Comment on above: Result Comment: The Pap smear is a screening test designed to aid in the detection of premalignant and malignant conditions of the uterine cervix. It is not a diagnostic procedure and should not be used as the sole means of detecting cervical cancer. Both false-positive and false-negative reports do occur. . Performed at: WB Performed By: #### [id number] #### [facility] [address] [place] [address] Dr. Manuel Fair Performed by: Comment Normal [facility] Comment on above: Result Comment: Michael Armendariz, Boat Mechanic (ASCP) Performed at: WB Performed By: #### [id number] #### [facility] [address] [place] [address] Dr. Manuel Fair Specimen adequacy: Comment Normal [facility] Comment on above: Result Comment: Sati sfactory for evaluation. No endocervical component is identified. Performed at: WB Performed By: #### [id number] #### [facility] [address] [place] [address] Dr. Manuel Fair MG MAMM SCREEN 3D [place] CADon 01-24-2022 MG MAMM SCREEN 3D [place] CAD Patient: KEYLA KEITH Exam Date: 01/24/2022 : 1980 Gender:F Ordering : DR JESSIE HOPE . Admission #: [id number] Family : DR BENNETT DUQUE . Order #: [id number] CLICK HERE TO VIEW EXAM RADIOLOGY REPORT PROCEDURE: MAMMOGRAM SCREENING 3D BILATERAL CAD COMPARISON: None. INDICATIONS: Screening mammography Calculator Name NCI Breast Cancer Risk Assessment Tool 5 Year Breast Cancer Risk 0.80% Lifetime Breast Cancer Risk 13.60% Personal Breast Cancer No Personal Ovarian Cancer No Treatments None Family Cancers Mother with colon cancer at age 62. LOCATION: [facility] BREAST COMPOSITION: Heterogeneously dense,which may [...] Harvey Marte M.D. on 01/25/2022 at 13:56 [facility] Vital Signs Date Time Vital Sign Value Performing Clinician Facility 02-01-2025 13:30-0400 Body mass index (BMI) [Ratio] 31.25 kg/m2 Jessie Herminia DO Work Phone: [facility] 02-01-2025 13:30-0400 Body weight 90.49 kg Jessie Herminia DO Work Phone: [facility] 02-01-2025 13:30-0400 Diastolic blood pressure 82 mm[Hg] Jessie Herminia DO Work Phone: [facility] 02-01-2025 13:30-0400 Systolic blood pressure 120 mm[Hg] Jessie Herminia DO Work Phone: [facility] 01-04-2025 13:47-0400 Body mass index (BMI) [Ratio] 31.7 kg/m2 Jessie Herminia DO Work Phone: [facility] 01-04-2025 13:47-0400 Body weight 91.81 kg Jessie Herminia DO Work Phone: [facility] 01-04-2025 13:47-0400 Diastolic blood pressure 80 mm[Hg] Jessie Herminia DO Work Phone: [facility] 01-04-2025 13:47-0400 Systolic blood pressure 122 mm[Hg] Jessie Herminia DO Work Phone: [facility] 11-23-2024 09:31-0400 Body mass index (BMI) [Ratio] 32.11 kg/m2 Jessie Herminia DO Work Phone: [facility] 11-23-2024 09:31-0400 Body weight 92.99 kg Jessie Herminia DO Work Phone: [facility] 11-23-2024 09:31-0400 Diastolic blood pressure 78 mm[Hg] Jessie Herminia DO Work Phone: [facility] 11-23-2024 09:31-0400 Systolic blood pressure 122 mm[Hg] Jessie Herminia DO Work Phone: [facility] 05-25-2024 11:52-0400 Body height 170.18 cm [facility] 05-25-2024 11:52-0400 Body mass index (BMI) [Ratio] 32.4 kg/m2 [facility] 05-25-2024 11:52-0400 Body temperature 97.5 [degF] [facility] 05-25-2024 11:52-0400 Body weight 93.89 kg [facility] 05-25-2024 11:52-0400 Diastolic blood pressure 83 mm[Hg] [facility] 05-25-2024 11:52-0400 Heart rate 91 /min [facility] 05-25-2024 11:52-0400 Respiratory rate 18 /min [facility] 05-25-2024 11:52-0400 SaO2% (BldA) [Mass fraction] 98 % [facility] 05-25-2024 11:52-0400 Systolic blood pressure 134 mm[Hg] [facility] 07-31-2022 12:15-0500 Body height 167.64 cm Jody Carey Other [employer] [facility] [employer] Other 07-31-2022 12:15-0500 Body mass index (BMI) [Ratio] 32.28 kg/m2 Jody Carey Other [employer] [facility] [employer] Other 07-31-2022 12:15-0500 Body temperature 97.3 [degF] Jody Carey Other [email or web address] Other 07-31-2022 12:15-0500 Body weight 90.72 kg Jody Carey Other [email or web address] Other 07-31-2022 12:15-0500 Respiratory rate 18 /min Jody Carey Other [email or web address] Other 07-31-2022 12:15-0500 SaO2% (BldA) [Mass fraction] 98 % Jody Carey Other [email or web address] Other Encounters Encounter Date Encounter Type Care Provider Facility Start: 02-21-2025 End: 02-21-2025 Clinisync Result Encounter Jessie Herminia DO Work Phone: [facility] Unsolicited Start: 02-21-2025 End: 02-21-2025 Clinisync Result Encounter Jessie Herminia DO Work [...] 02-01-2025 End: 02-01-2025 Patient encounter procedure Jessie Ehrminia DO Work Phone: [facility] Comment on above: Pre-op examination; Dysmenorrhea; Menorrhagia with regular cycle; Dyspareunia in female; Pelvic pain Start: 02-01-2025 End: 02-01-2025 Preprocedural examination done Jessie Herminia DO Work Phone: [facility] Start: 02-01-2025 End: 02-01-2025 Departed Referred Jessie Herminia -[facility] Start: 02-01-2025 End: 02-01-2025 ambulatory JESSIE HERMINIA [facility] Work Phone: Start: 01-04-2025 End: 01-04-2025 Bamboo [...] Start: 11-23-2024 End: 11-23-2024 Bamboo flowsheet Jessie Hermniia DO Work Phone: [facility] Start: 11-23-2024 End: 11-23-2024 Bamboo flowsheet Jessie Herminia DO Work Phone: [facility] Start: 11-23-2024 End: 11-23-2024 Clinisync Result Encounter Jessie Herminia DO Work Phone: [facility] Unsolicited Start: 11-23-2024 End: 11-23-2024 Office outpatient visit 15 minutes Jessie Herminia DO Work Phone: [facility] Comment on above: Menorrhagia with irr egular cycle; Spotting; Hormone imbalance; Menorrhagia with regular cycle Start: 11-23-2024 End: 11-23-2024 ambulatory JESSIE HOPE Not Available Start: 05-25-2024 End: 05-25-2024 ambulatory [facility] Work Phone: Start: 05-25-2024 End: 05-25-2024 Patient encounter procedure [facility] Work Phone: Start: 08-30-2022 Encounter for genera l adult medical examination without abnormal findings DR BENNETT DUQUE . [facility] [place] Start: 08-29-2022 End: 08-30-[address] HARVEY MARTE Facility:[facility] Start: 08-29-2022 End: 08-30-2022 Encounter for general adult medical examination without abnormal findings DR BENNETT DUQUE . Facility:[facility] Start: 07-31-2022 End: 07-31-2022 ambulatory Jody Carey Other [email or web address] Other Start: 07-31-2022 Office outpatient ne w 30 minutes Jody Carey [facility] Start: 04-22-2022 End: 04-22-[address] BENNETT DUQUE . Facility:[facility] Start: 02-05-2022 End: 02-05-[address] SEBASTIÁN FRIAS . Facility:[facility] Start: 01-24-2022 End: 01-25-[address] JESSIE HOPE . Facility: Procedures Date Procedure Procedure Detail Performing Clinician Start: 02-21-2025 XR CHEST 2V Jessie Fazi o DO Work Phone: Start: 02-10-2025 MM TOMOSYNTHESIS SCR EENING BI Jessie Hope DO Work Phone: Start: 02-01-2025 Urine test visual color cmprsn meths Jessie Belloo DO Work Phone: Start: 02-01-2025 PATHOLOGY REQUEST FO R LAB [facility] Jessie Belloo DO Work Phone: Start: 01-04-2025 IGP,APTIMA HPV,AGE GDLN Jessie Herminia DO Work Phone: Start: 12-13-2024 US PELVIS W/ TRANSVAGINAL Jessie Herminai DO Work Phone: Start: 11-23-2024 ALL CBC WITH AUTO DIFF Jessie Careyzio DO Work Phone: Start: 11-23-2024 Urnls dip stick/tabl et rgnt non-auto w/o micrscp Jessie Herminia DO Work Phone: Start: 03-14-2023 Cytp cerv/vag auto t hin layer prep mnl screen Jessie [email or web address] DO Work Phone: Plan of Treatment Date Care Activity Detail Author Start: 01-18-2026 End: 01-18-2026 Patient encounter procedure 01/18/2026 4:00 PM EDT Office Visit [facility] [address] [place] [address] Jessie Hope, DO [address] [place], [place] [id number] [facility] Start: 04-13-2025 End: 04-13-2025 Patient encounter procedure 04/13/2025 8:30 AM EDT Office Visit [facility] [address] [place] [address] Adrienne Sousa PA [address] [place], [place] [id number] [facility] Start: 03-09-2025 End: 03-09-2025 Patient encounter procedure 03/09/2025 8:30 AM EDT Office Visit [facility] [address] [place] [phone] Adrienne Sousa PA [address] [place] [address] [facility] Start: 02-01-2025 End: 02-01-2025 Patient encounter procedure 02/01/2025 1:30 PM EDT Procedure Visit [facility] [address] [place] [phone] Jessie Hope DO [address] [place] [address] [facility] Start: 02-01-2025 [facility] Start: 01-04-2025 End: 03-06-2026 MG Breast - bilateral Screening Bilateral screening mammogram Imaging Routine Well woman exam with routine gynecological exam Encounter for screening mammogram for malignant neoplasm of breast Expected: 01/04/2025 (Approximate), Expires: 03/06/2026 [facility] Work Phone: Comment on above: Expected: 01/04/2025 (Approximate), Expires: 03/06/2026 Start: 01-04-2025 End: 01-04-2025 Patient encounter procedure [facility] Comment on above: Arrived Start: 11-23-2024 End: 11-23-2025 aPTT in Blood by Coagulation assay APTT Lab Routine Menorrhagia with regular cycle Expected: 11/23/2024 (Approximate), Expires: 11/23/2025 [facility] Comment on above: Expected: 11/23/2024 (Approximate), Expires: 11/23/2025 Start: 11-23-2024 End: 11-23-2025 US Pelvis US Pelvis w/ TV Imaging Routine Menorrhagia with irregular cycle Menorrhagia with regular cycle Expected: 11/23/2024, Expires: 11/23/2025 [facility] Comment on above: Expected: 11/23/2024 , Expires: 11/23/2025 Start: 11-23-2024 End: 11-23-2024 Patient encounter procedure 11/23/2024 9:30 AM EDT Office Visit [facility] [address] [place] [id number] Jessie Hope DO [address] [place] [address] Arrived [facility] Comment on above: Arrived Biopsy endometrium Biopsy endome trium Procedures Routine Pre-op examination Dysmenorrhea Menorrhagia with regular cycle Dyspareunia in female Pelvic pain Ordered: 02/01/2025 [facility] Work Phone: Comment on above: Ordered: 02/01/2025 CBC W Auto Different ial panel - Blood CBC and differential Lab Routine Menorrhagia with regular cycle Ordered: 11/23/2024 [facility] Work Phone: Comment on above: Ordered: 11/23/2024 hCG, quantitative, hCG, quantitative, Lab Routine Menorrhagia with regular cycle Ordered: 11/23/2024 [facility] Comment on above: Ordered: 11/23/2024 Hemoglobin A1c/Hemoglobin.total in Blood Hemoglobin A1c Lab Routine Menorrhagia with regular cycle Ordered: 11/23/2024 [facility] Comment on above: Ordered: 11/23/2024 Prothrombin time (PT ) in Blood by Coagulation assay Protime-INR Lab Routine Menorrhagia with regular cycle Ordered: 11/23/2024 [facility] Comment on above: Ordered: 11/23/2024 THIN PREP TIS PAP AN D HR HPV DNA THIN PREP TIS PAP AND HR HPV DNA Pathology and Cytology Routine Well woman exam with routine gynecological exam Ordered: 01/04/2025 [facility] Comment on above: Ordered: 01/04/2025 Thyrotropin [Units/volume] in Serum or Plasma TSH Lab Routine Menorrhagia with regular cycle Ordered: 11/23/2024 [facility] Comment on above: Ordered: 11/23/2024 Thyroxine (T4) free [Mass/volume] in Serum or Plasma T4, free Lab Routine Menorrhagia with regular cycle Ordered: 11/23/2024 [facility] Comment on above: Ordered: 11/23/2024 Payers Date Payer Category Payer Self-pay 2021 [employer] [id number] 1980 Unknown [id number] 1980 Unknown [id number] 1980 Unknown [id number] 1980 Unknown [id number] 1980 Unknown [id number] 1980 Unknown [id number] 1980 Unknown [id number] 1980 Unknown [id number] 1958 [employer] Cross [employer] Shield [place] [id number] 1958 Unknown [id number] Unknown [id number] Social History Date Type Detail Facility Start: 03-24-2023 End: 11-23-2024 Sex Assigned At [facility] Erinn [employer]iver[employer] Other Start: 07-31-2022 Tobacco smoking stat us NHIS Smoker (finding) [facility] Start: 1980 Sex Assigned At Female F [facility] Start: 07-31-2022 End: 02-06-2023 Tobacco smoking status NHIS Smokes tobacco daily [facility] History of [...] Identifies as female gender (finding) [facility] Sex Female (finding) [facility] History of Present illness Narrative 02-01-2025 Liseth Lamaman - 02/01/2025 1:30 PM EDT Note Date [...] on 03-02-[address] Hope at [facility]. MEDICATIONS Current Outpatient Medications Medication Instructions [...] nursing note reviewed. Exam conducted with a stave grader present. Vitals: Estimated body mass index is [...] on 03-02-[address] Hope at [facility]. EMBX: Patient was placed in dorsal [...] nursing note reviewed. Exam conducted with a stave grader present. Vitals: Estimated body mass index is [...] nursing note reviewed. Exam conducted with a stave grader present. Vitals: Estimated body mass index is [...] Jessie Hope DO documented in this encounter [facility] Evaluation note 07-31-2022 Note Date & [...] treatment plan. Patient left in stable condition [place] [employer] Other Evaluation note Note Date & Type Note Facility Evaluation note [facility] Evaluation note Note Date & Type Note Facility Evaluation note Diagnosis Menorrhagia with irregular cycle Spotting Other specified noninflammatory disorder of vagina Hormone imbalance Menorrhagia with regular cycle documented in this encounter [facility] Evaluation note Note Date & Type Note Facility Evaluation note Diagnosis Well woman exam with routine gynecological exam Routine gynecological examination Hormone imbalance Encounter for screening mammogram for malignant neoplasm of breast documented in this encounter [facility] Evaluation note Note Date & Type Note Facility Evaluation note Diagnosis Pre-op examination Dysmenorrhea Menorrhagia with regular cycle Dyspareunia in female Pelvic pain documented in this encounter [facility] Healthcare History general Narrative - Reported Note Date & Type Note Facility History general Narrative - Reported Type Surgical History C section Hospitalization History see above [email or web address] Other Reason for referral (narrative) Note Date & Type Note Facility Reason for referral (narrative) No reason for referral information available [facility] Work Phone: Summary Purpose Family History No [...] DATE CREATED AUTHOR AUTHOR'S ORGANIZ ATION 02/03/2025 [facility] EPIC DATE CREATED AUTHOR AUTHOR'S ORGANIZ ATION 02/13/2025 [facility] Care Teams (unrecognized sec tion and content) Team Status: Active Member Role Status Dates Bennett Duque MD Primary Care Provider Active Team Status: Inactive Member Role Status Dates Bennett Duque MD Primary Care Provider Active Start: May 25, 2024 End: May 25, 2024 Jody Carey APRN Attending Provider Active Start: May 25, 2024 End: May 25, 2024 Medical Secretary Relationship Specialty Start Date End Date Bennett Duque MD [address] [place] [address] PCP - General Family Medicine 02/10/23 Medical Secretary Relationship Specialty Start Date End Date Bennett Duque MD [address] [place] [address] PCP - General Family Medicine 02/10/23 Medical Secretary Relationship Specialty Start Date End Date Bennett Duque MD [address] [place] [address] PCP - General Family Medicine 02/10/23 Medical Secretary Relationship Specialty Start Date End Date Bennett Duque MD PCP - General Family Medicine 02/10/23 Medical Secretary Relationship Specialty Start Date End Date Bennett Duque MD [address] [place] [address] PCP - General Family Medicine 02/10/23 Medical Secretary Relationship Specialty Start Date End Date Bennett Duque MD [address] [place] [address] PCP - General Family Medicine 02/10/23 Team Status: Inactive Member Role Status Dates Jessie Hope DO Attending Provider Active Start : February 01, 2025 End: February 01, 2025 Medical Secretary Relationship Specialty Start Date End Date Bennett Duque MD [address] [place] [address] PCP - General Family Medicine 02/10/23 Goals [...] BE BASED ON THE PRIMARY CLINICAL RECORDS. [facility] provides no warranty or guarantee of the accuracy or completeness of information in this document.
[2025-03-02 06:33] LABS: Hematocrit 41.6 % (36.0-48.0); Hemoglobin 14.1 g/dL (12.0-16.0); Immature Granulocytes Abs Auto 0.02 10^3/uL (0.00-0.03); Immature Granulocytes Pct Auto 0.3 % (0.0-0.5); Lymphocytes Absolute Auto 2.6 10^3/uL (1.2-3.8); Mean Corpuscular HGB Conc 33.9 g/dL (29.9-35.2); Mean Corpuscular Hemoglobin 33.4 pg (26.7-34.0); Mean Corpuscular Volume 98.6 fL (81.0-99.0); Platelet Count 207 10^3/uL (150-450); Red Blood Count 4.22 10^6/uL (4.20-5.40); White Blood Count 7.2 10^3/uL (4.0-11.0)
[2025-03-02] MEDS: FAMOTIDINE/PF 20 MG/2 ML VIAL IV (07:17)
[2025-03-02] MEDS: SCOPOLAMINE 1 MG/3 DAYS TRANSDERM PATCH 1 PATCH TD (07:18)
[2025-03-02] MEDS: CEFAZOLIN SODIUM 2 GM/50 ML D5W PREMIX IV (08:07)
--- NOTE | 2025-03-02 10:28 | PM.ONB ---
Brief Operative Note Date of procedure: 03/02/25 Pre-op diagnosis general: menorrhagia, pelvic pain, dysmenorrhea, dyspareunia Post-op diagnosis: same as pre-op Procedure: NAME OF PROCEDURE: [ ]Total abdominal hysterectomy, bilateral partial salpingectomy with cystoscopy. PROCEDURE: Patient was taken back to the Operating Room where she was given general anesthesia without difficulty. She was then prepped and draped in the normal sterile fashion. A Pfannenstiel skin incision was then made 2 cm above the symphysis and pubis and carried down to underlying rectus fascia using a Bovie. The fascia was incised in the midline and extended bilaterally using Burch scissors. Two Marina clamps were placed on the superior aspect of the fascia and dissected off the underlying rectus muscle. The same was performed on the inferior aspect as well. The muscle was then in the midline. The peritoneum was identified and entered bluntly. Peritoneum was then extended superiorly and inferiorly with good visualization of the bladder. An O'Udtorcxz-T-Vcbfba retractor was placed into the patient's abdomen. The bowel was packed away with moist laparotomy sponges and the bladder blade was inserted. A Leahey tenaculum was placed on the patient's uterus and used for retraction. LigaSure apparatus was then used to come across the mesosalpingx from the fimbriated end to the uteroovarian ligament on the patient's right side which was then cauterized and transected. TThis wascarried down serially through the broad ligament and across the round ligament. The bladder flap was then created using the Metzenbaum scissors, and thebladder was easily dissected off the patient's lower uterine segment. A curved Azeb was placed across the uterine artery on the right side which was clamped, transected, and suture ligated using #0 Monocryl. This was performed on the contralateral side as well. The bladder was further dissected and a Zeppelin clamp was then placed across the uterosacral and cardinal ligaments. This was transected and suture ligated using #0 Monocryl. This was performed on the contralateral side as well. The uterus was then amputated using Shirley scissors. The patient's cuff was closed using #0 PDS in a running locked fashion and this was transfixed to the ipsilateral uterosacral and cardinal ligaments. Excellent hemostasis was assured. The patient's abdomen wascopiously irrigated using warm saline. Cystoscopy was performed. Bladder was intact. Efflux was noted from both ostia. Cystoscope was removed.After excellent hemostasis was assured, all instruments were removed from the patient's abdomen. The patient's peritoneum was closed using 3-0 Vicryl in a running fashion. The patient's fascia was closed using #0 Vicryl in a running fashion. The patient's skin was closed using 4-0 vicryl on a lyssa needle. The patient tolerated the procedure well. Sponge, lap, and needle counts were correct times two. Patient taken to the Recovery Room in stable condition Anesthesia: BARAK Surgeon: Khadar Hope Customer Business Manager: Elza Wylie Estimated blood loss (mL): 150 Pathology: other (uterus and cervix, partial tubes) Condition: stable Disposition: PACU Urinary Catheter Management Urinary Catheter Management Urethral: Cath placed during this visit: no
[2025-03-02] MEDS: BUPIVACAINE LIPOSOME/PF 266 MG/20 ML VIAL INJ (10:31)
[2025-03-02] MEDS: MEPERIDINE HCL/PF 25 MG/ML VIAL 12.5 MG IVP (10:55)
[2025-03-02] MEDS: OXYCODONE HCL/ACETAMINOPHEN 5MG/325MG 2 TAB PO ×2 (11:19→20:21)
[2025-03-02] MEDS: HYDROMORPHONE HCL 0.5 MG/0.5 ML SYRINGE IV (14:16)
[2025-03-02] MEDS: CEFAZOLIN SODIUM/DEXTROSE,ISO 2 GM/50 ML PIGGYBACK IV ×2 (14:20→20:21)
[2025-03-02] MEDS: KETOROLAC TROMETHAMINE 30 MG/ML VIAL IVP ×2 (17:10→22:40)
[2025-03-02] MEDS: IBUPROFEN 400 MG TABLET 800 MG PO (20:21)
[2025-03-02] MEDS: TEMAZEPAM 15 MG CAPSULE 30 MG PO (20:22)
[2025-03-03] VITALS: BP 106/68; PULSE 70; TEMP 36.6; O2SAT 90
[2025-03-03] MEDS: IBUPROFEN 400 MG TABLET 800 MG PO (02:21)
[2025-03-03] MEDS: OXYCODONE HCL/ACETAMINOPHEN 5MG/325MG 2 TAB PO ×2 (02:21→08:59)
[2025-03-03 04:00] VITALS: BP 100/69; PULSE 70; TEMP 36.6; O2SAT 92
[2025-03-03] MEDS: KETOROLAC TROMETHAMINE 30 MG/ML VIAL IVP (05:53)
--- OUTSIDE RECORDS SUMMARY | 2025-03-03 06:36 | XMS_ITS | CCD ---
Author Organization [facility] Care Team Providers Care Vamp Strap Ironer Name Role Phone Jody Carey Unavailable ANGEL, [...] Unavailable HERMINIA ., DR ROMAN Admitting Unavailable HEMRINIA ., DR ROMAN Attending Unavailable HOY ., [...] Care Provider Jessie Hope DO Attending Provider [phone] JESSIE HOPE Attending Unavailable JESSIE HOPE Attending Unavailable JESSIE HOPE Attending Unavailable Jessie Hope Attending Unavailable Jessie Hope Admitting Unavailable Medications Current Medications Medication Drug Class(es) Dates Sig (Normalized) Sig (Original) azithromycin 250 mg oral tablet (3 sources) Macrolide Antimicrobial Start: 05-25-2024 Start: 05-25-2024 Azithromycin A ctive 0 PO .COMPLEX May 25, 2024 12:00am For 250 mg dose pack: take 500 mg today (day 1), then 250 mg for 4 days (days 2-5) PO benzonatate 100 mg oral capsule (3 sources) Non-narcotic Antitussive Start: 05-25-2024 take 1 capsule by mouth three times daily loratadine 10 mg oral tablet (9 sources) loratadine (Claritin) 10 MG tablet Take 10 mg by mouth if needed for allergies Active methylPREDNISolone 4 mg oral tablet (3 sources) Corticosteroid Start: 05-25-2024 take 1 tablet by mouth once Completed/Discontinued Medications Medication Drug Class(es) Dates Sig (Normalized) Sig (Original) [id number] 200 actuat albuterol 0.09 mg/actuat metered dose inhaler (12 sources) beta2-Adrenergic Agonist Start: 05-25-2024 End: 02-01-2025 [...] irregular cycle] 11-23-2024 Chronic Other endocrine disorders (13 sources) Disorder of endocrine system; Translations: [Endocrine [...] (SUSP) EXPOS COVID-19] Onset: 04-22-2022 Viral infection (15 sources) Plantar wart of right foot; Translations: [Plantar wart] Onset: 02-05-2023 02-05-2023 Episodic Results Test Name Value Interpretation Reference Range Facility ALL CBC WITH AUTO DIFFon BASOPHILS ABSOLUTE AUTO 0 N [facility] Basophils/100 WBC (Bld) 0.4 % 0.2 - 2.0 % [facility] Eosinophils/100 WBC (Bld) 2.9 % 0.9 - 7.0 % [facility] Erythrocyte distribution width (RBC) [Ratio] 12 % 11.0 - 15.0 % [facility] Hematocrit (Bld) [Volume fraction] 41.6 % 36.0 - 48.0 % [facility] Hemoglobin (Bld) [Mass/Vol] 14.1 g/dL 12.0 - 16.0 g/dL [facility] IMMATURE GRANULOCYTES ABS AUTO 0.02 [facility] Immature granulocytes/100 WBC (Bld) 0.3 % 0.0 - 0.5 % [facility] Interpretation and review of laboratory results Abnormal [facility] LYMPHOCYTES ABSOLUTE AUTO 2.6 [facility] Lymphocytes/100 WBC (Bld) 35.7 % 20.5 - 60.0 % [facility] MCH (RBC) [Entitic mass] 33.4 pg 26.7 - 34.0 pg [facility] MCHC (RBC) [Mass/Vol] 33.9 g/dL 29.9 - 35.2 g/dL [facility] MCV (RBC) [Entitic vol] 98.6 fL 81.0 - 99.0 fL [facility] MONOCYTES ABSOLUTE AUTO 0.5 [facility] Monocytes/100 WBC (Bld) 6.6 % 1.7 - 12.0 % [facility] NEUTROPHILS ABSOLUTE AUTO 3.9 [facility] Neutrophils/100 WBC (Bld) 54.1 % 43.0 - 75.0 % [facility] Platelet mean volume (Bld) [Entitic vol] 9.2 fL Low 9.5 - 13.5 fL [facility] TB[facility] EO # 0.2 [facility] PLT 207 [facility] RBC 4.22 [facility] WBC 7.2 [facility] ECG 12-LEADon 03-02-2025 [place] [address] Electrocardiograph Report Signed Patient: KEYLA KEITH MR#: [id number] : 1980 Acct:[id number] Age/Sex: 44 / F ADM Date: 03/02/25 Loc: SURGOUT Attending Dr: Jessie Hope D.O. Ordering Physician: Jessie Hope D.O. 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 Measurements Intervals [place] Rate: 78 P: 55 OR: 158 QRS: 62 QRSD: 95 T: 53 QT: 368 QTc: 421 Interpretive Statements SINUS RHYTHM Normal ECG No previous ECG available for comparison Electronically Signed On 03-02-2025 8:08:30 EDT by GIANLUCA MALDONADO M.D. Dictated By: GIANLUCA MALDONADO Signed By: 03/02/25 08 DD/ 1 TD/TT: Regulation Supervisor: [facility] Radiology, Radiologist, - 03/02/2025 [place] [address] Electrocardiograph Report Signed Patient: KEYLA KEITH MR#: [id number] : 1980 Acct:[id number] Age/Sex: 44 / F ADM Date: 03/02/25 Loc: SURGOUT Attending Dr: Jessie Hope D.O. Ordering Physician: Jessie Hope D.O. 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 Measurements Intervals [place] Rate: 78 P: 55 OR: 158 QRS: 62 QRSD: 95 T: 53 QT: 368 QTc: 421 Interpretive Statements SINUS RHYTHM Normal ECG No previous ECG available for comparison Electronically Signed On 03-02-2025 8:08:30 EDT by GIANLUCA MALDONADO M.D. Dictated By: GIANLUCA MALDONADO Signed By: 03/02/25 08 DD/ 1 TD/TT: Regulation Supervisor: [facility] Radiology Study observation (narrative) KAMRAN Peña [facility] ECG 12-LEADOrdered By: panpan [facility] Radiology on 03-02-2025 [facility] AURSOScar e Work Phone: XR CHEST 2Von 02-21-[address] [address] XRay Report Signed Patient: KEYLA KEITH MR#: [id number] : 1980 Acct:[id number] Age/Sex: 44 / F ADM Date: 02/21/25 Loc: [facility] Attending Dr: Jessie Hope D.O. Ordering Physician: Jessie Hope D.O. Date of Service: 02/21/25 Procedure(s): XR chest 2V Accession Number(s): [id number] cc: Jessie Hope D.O.; Bennett Duque M.D. The [address] [address] Patient Name: KEYLA KEITH MRN: [facility]:[id number] date: 1980 Sex: F Assigned Patient Location: [facility] Current Patient Location: [facility] Accession/Order Number: [id number] Exam Date: 02/21/2025 10:51 Report Date: 02/21/2025 10:52 At the request of: JESSIE HOPE DO Procedure: XR chest 2V Chest 2 views CLINICAL HISTORY: Preop exam COMPARISON: Chest 07/07/2023 FINDINGS: Heart normal size. Lungs are clear. No free air. XR/XR chest 2V IMPRESSION: NO ACUTE CARDIOPULMONARY ABNORMALITY. Impression dictated by: Sriram Berry Jr., D.O. 02/21/2025 10:52 AM Dictation Location: [place] [address] Electronically authenticated by: [id number] Y Date: 02/21/2025 10:52 Dictated By: Sriram Berry M.D. Signed By: 02/21/25 1054 DD/ 1052 TD/TT: Regulation Supervisor: [facility] Radiology, Radiologist, - 02/21/[address] [address] XRay Report Signed Patient: KEYLA KEITH MR#: [id number] : 1980 Acct:[id number] Age/Sex: 44 / F ADM Date: 02/21/25 Loc: [facility] Attending Dr: Jessie Hope D.O. Ordering Physician: Jessie Hope D.O. Date of Service: 02/21/25 Procedure(s): XR chest 2V Accession Number(s): [id number] cc: Jessie Hope D.O.; Bennett Duque M.D. The [place] [id number] Patient Name: KEYLA KEITH MRN: [facility]:[id number] date: 1980 Sex: F Assigned Patient Location: [facility] Current Patient Location: [facility] Accession/Order Number: [id number] Exam Date: 02/21/2025 10:51 Report Date: 02/21/2025 10:52 At the request of: JESSIE HOPE DO Procedure: XR chest 2V Chest 2 views CLINICAL HISTORY: Preop exam COMPARISON: Chest 07/07/2023 FINDINGS: Heart normal size. Lungs are clear. No free air. XR/XR chest 2V IMPRESSION: NO ACUTE CARDIOPULMONARY ABNORMALITY. Impression dictated by: Sriram Berry Jr., D.O. 02/21/2025 10:52 AM Dictation Location: [place] [address] Electronically authenticated by: [id number] Y Date: 02/21/2025 10:52 Dictated By: Sriram Berry M.D. Signed By: 02/21/25 1054 DD/ 1052 TD/TT: Regulation Supervisor: KAMRAN [facility] Radiology Study observation (narrative) KAMRAN Peña [facility] XR CHEST 2VOrdered By: Radio [facility] Radiology on 02-21-2025 [facility] Work Phone: MM TOMOSYNTHESIS SCREENING B Ion 02-10-[address] [address] Mammography Report Signed Patient: KEYLA KEITH MR#: [id number] : 1980 Acct:[id number] Age/Sex: 44 / F ADM Date: 02/10/25 Loc: MAMMO Attending Dr: Jessie Hope D.O. Ordering Physician: Jessie Hope D.O. Results: Date of Service: 02/10/25 Follow Up: Procedure(s): MM tomosynthesis screening BI Accession Number(s): [id number] cc: Jessie Hope D.O.; Bennett Duque M.D. Patient Name: KEYLA KEITH MR#: [id number] : 1980 Exam Date: 02/10/2025 Ordering Doctor: [...] breast cancer at age 45. LOCATION: [facility] BREAST COMPOSITION: The breasts are heterogeneously dense, [...] D.O. Signed By: 02/10/251650 DD/ 49 TD/TT: Regulation Supervisor: [facility] Radiology, Radiologist, - 02/10/2025 [place] [address] Mammography Report Signed Patient: KEYLA KEITH MR#: [id number] : 1980 Acct:[id number] Age/Sex: 44 / F ADM Date: 02/10/25 Loc: MAMMO Attending Dr: Jessie Hope D.O. Ordering Physician: Jessie Hope D.O. Results: Date of Service: 02/10/25 Follow Up: Procedure(s): MM tomosynthesis screening BI Accession Number(s): [id number] cc: Jessie Hope D.O.; Bennett Duque M.D. Patient Name: KEYLA KEITH MR#: [id number] : 1980 Exam Date: 02/10/2025 Ordering Doctor: [...] breast cancer at age 45. LOCATION: [facility] BREAST COMPOSITION: The breasts are heterogeneously dense, [...] D.O. Signed By: 02/10/251650 DD/ 49 TD/TT: Regulation Supervisor: KAMRAN [facility] Rad[facility] Study observation (narrative) KAMRAN [facility] MM TOMOSYNTHESIS SCREENING B IOrdered By: Radiologist Radiology on 02-10-2025 [facility] [employer] Work Phone: PATHOLOGY REQUEST FOR LAB CO RPon 02-09-2025 PATHOLOGY REQUEST FOR LAB [facility] Comment on above: See report. Scanned copy available in EMR. LC SEND OUT- [facility] HCG ( test) Ql (U)O rdered By: Cathleen Dubon on 02-01-2025 Interpretation and review of laboratory results Normal [facility] Preg Test, Ur Negative Negative [facility] care [facility] No Panel InformationOrdered By: Jessie Hope on 02-01-2025 Miscellaneous Pathology Test See comment [facility] Comment on above: See report. Scanned copy available in EMR. Pathology Request for Lab Co rpon 02-01-2025 Pathology Request for Lab Carmen Normal [facility] Comment on above: Order Comment: IGLESIA SE ND OUT- ENDOMETRIUM Result Comment: See report. Scanned copy available in EMR. PERFORMED BY: [place] [address] PATHOLOGIST SOFA COVER INSPECTOR ETHAN MEANS M.D. Performed By: #### P ATH TO [facility] #### [address] IGP,APTIMA HPV,AGE GDLNon AGE GDLN ACOG TESTING Note . [facility] Comment on above: TESTS RESULT FLAG UN ITS REF RANGE LAB Clinician Provided Cytology Information Source.............Cervix No. of containers..01 ThinPrep Vial Age Algo ACOG Kirstie... 30-65 01 FLAG LEGEND: L-Low Normal,H-High Normal,LL-Alert Low,HH-Alert High <-Panic Low,>-Panic High,A-Abnormal,AA-Critical Abnormal Performed at: 01 =[address] [place] [address] Yamila Cotter MD, HPV APTIMA Negative Negative [facility] Comment on above: This nucleic acid am plification test detects fourteen high- risk HPV types (16,18,31,33,35,39,45,51,52,56,58,59,66,68) without differentiation. Performed at: =[address], [place] [id number] Cupola Tender: Yamila Cotter MD, Phone: [phone] Performed at: [address], [place] [id number] Cupola Tender: Yamila Cotter MD, Phone: [phone] IGP, APTIMA HPV, RFX 16/18,45 Note . [facility] Comment on above: TESTS RESULT FLAG UN ITS REF RANGE LAB DIAGNOSIS: 02 NEGATIVE FOR INTRAEPITHELIAL LESION OR MALIGNANCY. Specimen adequacy: 02 Satisfactory for evaluation. No endocervical component is identified. Performed by: 02 Rod Ro, Nursing Consultant (ASCP) . 02 Note: Note 02 The [...] <-Panic Low,>-Panic High,A-Abnormal,AA-Critical Abnormal Performed at: 02 [address] [facility] [address] [address] Yamila Cotter MD, BRUSH-SPATULA CERVIX [facility] US PELVIS W/ TRANSVAGINALon 12-13-2024 [place] [address] Ultrasound Report Signed Patient: KEYLA KEITH MR#: [id number] : 1980 Acct:[id number] Age/Sex: 44 / F ADM Date: 12/11/24 Loc: US Attending Dr: Jessie Hope D.O. Ordering Physician: Jessie Hope D.O. Date of Service: 12/11/24 Procedure(s): US pelvis w/ transvaginal Accession Number(s): [id number] cc: Jessie Hope D.O.; Bennett Duque M.D. [address] [id number] Patient Name: KEYLA KEITH MRN: [id number] date: 1980 Sex: F Assigned Patient Location: US Current Patient Location: Accession/Order Number: [id number] Exam Date: 12/13/2024 09:53 Report Date: 12/13/2024 [...] Gupta M.D. 12/13/2024 9:58 AM Dictation Location: [place] [address] Electronically authenticated by: [id number] Y Date: 12/13/2024 09:58 Dictated By: Yari Gupta M.D. Signed By: 12/13/24 1001 DD/ 0958 TD/TT: Regulation Supervisor: [facility] Radiology, Radiologist, - 12/13/2024 [place] [address] Ultrasound Report Signed Patient: KEYLA KEITH MR#: [id number] : 1980 Acct:[id number] Age/Sex: 44 / F ADM Date: 12/11/24 Loc: US Attending Dr: Jessie Hope D.O. Ordering Physician: Jessie Hope D.O. Date of Service: 12/11/24 Procedure(s): US pelvis w/ transvaginal Accession Number(s): [id number] cc: Jessie Hope D.O.; Bennett Duque M.D. [address] [address] Patient Name: KELYA KEITH MRN: [id number] date: 1980 Sex: F Assigned Patient Location: US Current Patient Location: Accession/Order Number: [id number] Exam Date: 12/13/2024 09:53 Report Date: 12/13/2024 [...] Gupta M.D. 12/13/2024 9:58 AM Dictation Location: [place] [address] Electronically authenticated by: [id number] Y Date: 12/13/2024 09:58 Dictated By: Yari Gupta M.D. Signed By: 12/13/24 1001 DD/ 0958 TD/TT: Regulation [facility] Radiology Study observation (narrative) [facility] US PELVIS W/ TRANSVAGINALOrd ered By: Radiologist Radiology on 12-13-2024 [facility] Healthcar e Work Phone: ALL CBC WITH AUTO DIFFon BASOPHILS ABSOLUTE AUTO 0 [facility] Basophils/100 WBC (Bld) 0.3 % 0.2 - 2.0 % [facility] Eosinophils/100 WBC (Bld) 2.3 % 0.9 - 7.0 % [facility] Erythrocyte distribution width (RBC) [Ratio] 12.2 % 11.0 - 15.0 % [facility] Hematocrit (Bld) [Volume fraction] 42.6 % 36.0 - 48.0 % [facility] Hemoglobin (Bld) [Mass/Vol] 14 g/dL 12.0 - 16.0 g/dL [facility] IMMATURE GRANULOCYTES ABS AUTO 0.01 [facility] Immature granulocytes/100 WBC (Bld) 0.1 % 0.0 - 0.5 % [facility] Interpretation and review of laboratory results Abnormal [facility] LYMPHOCYTES ABSOLUTE AUTO 1.9 [facility] Lymphocytes/100 WBC (Bld) 26.2 % 20.5 - 60.0 % [facility] MCH (RBC) [Entitic mass] 32.6 pg 26.7 - 34.0 pg [facility] MCHC (RBC) [Mass/Vol] 32.9 g/dL 29.9 - 35.2 g/dL [facility] MCV (RBC) [Entitic vol] 99.1 fL High 81.0 - 99.0 fL [facility] MONOCYTES ABSOLUTE AUTO 0.4 [facility] Monocytes/100 WBC (Bld) 5.1 % 1.7 - 12.0 % [facility] NEUTROPHILS ABSOLUTE AUTO 4.9 [facility] Neutrophils/100 WBC (Bld) 66 % 43.0 - 75.0 % [facility] Platelet mean volume (Bld) [Entitic vol] 9.4 fL Low 9.5 - 13.5 fL [facility] TBH EO # 0.2 [facility] TB[facility] PLT 207 [facility] RBC 4.3 [facility] WBC 7.4 [facility] Urinalysis macro (dipstick) panel (U)on 11-23-2024 Bilirubin, UA Negative Negative - 4(70) +++ mg/dL [facility] Blood, UA Positive Negative - 50 Marvin/mcL [facility] Comment on above: moderate Clarity, UA Clear [facility] Healthin re Color, UA Yellow [facility] Glucose, UA Negative Negative - 1999(110) ++++ mg/dL [facility] Interpretation and review of laboratory results Abnormal [facility] Ketones, UA Negative Negative - 160(16) ++++ mg/dL [facility] Leukocytes, UA Negative Negative - 500+++ Nilo/mcL [facility] Nitrite, UA Negative Negative - Positive [facility] pH, UA 5.5 5 - 9 [facility] e Protein, UA Trace Negative - 1999(20) ++++ mg/dL [facility] Spec Grav, UA 1.03 1 - 1.03 [facility] Urobilinogen, UA 0.2 0.2 - 12 mg/dL [facility] Cytology Cervical or vaginal smear or scraping studyOrdered By: Cathleen Dubon on 03-14-2023 [facility] e CBC AUTO DIFFon 08-29-2022 BASO # 0.0 103/ul Normal 0.0-0.1 [facility] Comment on above: Performed By: #### C BC ####[facility] [address] [place], [place] [address]Dr. Manuel Fair Basophils/100 WBC (Bld) 0.2 % Normal 0.2-2.0 [facility] Comment on above: Performed By: #### C BC ####[facility] [address] [place], [place] [address]Dr. Manuel Fair EO # 0.2 103/ul Normal 0.0-0.7 [facility] Comment on above: Performed By: #### C BC ####[facility] [address] [place] [address]Dr. Manuel Fair Eosinophils/100 WBC (Bld) 2.9 % Normal 0.9-7.0 [facility] Comment on above: Performed By: #### C BC ####[facility] [address] [place], [place] [address]Dr. Manuel Fair Erythrocyte distribution width (RBC) [Ratio] 12.2 % Normal 11.0-15.0 [facility] Comment on above: Performed By: #### C BC ####[facility] [address] [place] [address]Dr. Manuel Fair Hematocrit (Bld) [Volume fraction] 44.2 % Normal 36.0-48.0 [facility] Comment on above: Performed By: #### C BC ####[facility] [address] [place], [place] [address]Dr. Manuel Fair Hemoglobin (Bld) [Mass/Vol] 13.2 g/dL Normal 12.0-16.0 [facility] Comment on above: Performed By: #### C BC ####[facility] [address] [place], [place] [address]Dr. Manuel Fair IG # 0.01 10e3/ul Normal 0.00-0.03 [facility] Comment on above: Performed By: #### C BC ####[facility] [address] [place], [place] [address]Dr. Manuel Fair IG % 0.2 % Normal 0.0-0.5 [facility] Comment on above: Performed By: #### C BC ####[facility] [address] [place], [place] [address]Dr. Manuel Fair LYMPH # 2.1 103/ul Normal 1.2-3.8 [facility] Comment on above: Performed By: #### C BC ####[facility] [address] [place], [place] [address]Dr. Manuel Fair Lymphocytes/100 WBC (Bld) 33.7 % Normal 20.5-60.0 [facility] Comment on above: Performed By: #### C BC ####[facility] [address] [place], [place] [address]Dr. Lauraperri Fair MANUAL DIFF REQ NO Normal [facility] Comment on above: Performed By: #### C BC ####[facility] [address] [place], [place] [address]Dr. Manuel Fair MCH (RBC) [Entitic mass] 32.1 pg Normal 26.7-34.0 [facility] Comment on above: Performed By: #### C BC ####[facility] [address] [place] [address]DrAugustus Fair MCHC (RBC) [Mass/Vol] 29.9 g/dL Normal 29.9-35.2 [facility] Comment on above: Performed By: #### C BC ####[facility] [address] [place], [place] [address]DrAugustus Fair MCV (RBC) [Entitic vol] 107.5 fL Critically high 81.0-99 .0 [facility] Comment on above: Performed By: #### C BC ####[facility] [address] [place], [place] [address]DrAugustus Fair MONO # 0.3 103/ul Normal 0.3-0.8 [facility] Comment on above: Performed By: #### C BC ####[facility] [address] [place], [place] [address]DrAugustus Fair Monocytes/100 WBC (Bld) 5.2 % Normal 1.7-12.0 [facility] Comment on above: Performed By: #### C BC ####[facility] [address] [place], [place] [address]DrAugustus Fair NEUT # 3.5 103/ul Normal 1.4-6.5 [facility] Comment on above: Performed By: #### C BC ####[facility] [address] [place], [place] [address]DrAugustus Fair Neutrophils/100 WBC (Bld) 57.8 % Normal 43.0-75.0 [facility] Comment on above: Performed By: #### C BC ####[facility] [address] [place], [place] [address]DrAugustus Fair Platelet mean volume (Bld) [Entitic vol] 9.8 fL Normal 9.5-13.5 [facility] Comment on above: Performed By: #### C BC ####[facility] [address] [place], [place] [address]Dr. Manuel Fair PLT 214 103/ul Normal 150-450 [facility] Comment on above: Performed By: #### C BC ####[facility] [address] [place], [place] [address]KdDr. Manuel Fair RBC 4.11 106/ul Critically low 4.20-5.40 [facility] Comment on above: Performed By: #### C BC ####[facility] [address] [place], [place] [address]ZfAugustus Fair WBC 6.1 103/ul Normal 4.0-11.0 [facility] Comment on above: Performed By: #### C BC ####[facility] [address] [place] [address]Dr. Manuel Fair FREE THYROXINE INDEX T7on FTI 2.56 Normal 1.30-4.50 [facility] Comment on above: Performed By: #### T 7, TSH, LIPID, CMP #### [facility] [address] [place] [address] [address] Manuel Fair T3U 36.0 % Normal 30.0-39.0 [facility] Comment on above: Performed By: #### T 7, TSH, LIPID, CMP #### [facility] [address] [place] [address] [address] Manuel Fair T4 [Mass/Vol] 7.10 ug/dL Normal 4.80-13.90 [facility] Comment on above: Performed By: #### T 7, TSH, LIPID, CMP #### [facility] [address] [place] [address] [address] Manuel Fair GLYCOHEMOGLOBIN A1Con 2022 ADA RECOMMENDATION SEE BELOW Normal [facility] Comment on above: Result Comment: ADA RECOMMENDED LIMIT 4.0 - 6.0 ADA THERAPEUTIC TARGET < 7.0 ACTION SUGGESTED > 7.0 Performed By: #### A 1C #### [facility] [address] [place] [address] [address] Manuel Fair Glucose [Mass/Vol] 111 mg/dL Normal [facility] Comment on above: Performed By: #### A 1C #### [facility] [address] [place] [address] Dr. Manuel Fair HbA1c (Bld) [Mass fraction] 5.5 % Normal 4.5-6.2 [facility] Comment on above: Performed By: #### A 1C #### [facility] [address] [place] [address] Dr. Manuel Fair LIPID PROFILEon 08-29-2022 CHOL-HDL RATIO NORM SEE BELOW Normal [facility] Comment on above: Result Comment: 3.3 - 4.4 LOW RISK 4.4 - 7.1 AVERAGE RISK 7.1 - 11.0 MODERATE RISK >11.0 HIGH RISK Performed By: #### T 7, TSH, LIPID, CMP #### [facility] [address] [place] [address] Dr. Manuel Fair Cholesterol [Mass/Vol] 183 mg/dL Normal <=200 [facility] Comment on above: Performed By: #### T 7, TSH, LIPID, CMP #### [facility] [address] [place] [address] Dr. Manuel Fair Cholesterol in HDL [Mass/Vol] 44 mg/dL Normal 40-60 [facility] Comment on above: Performed By: #### T 7, TSH, LIPID, CMP #### [facility] [address] [place] [address] Dr. Manuel Fair Cholesterol in LDL [Mass/Vol] 111.2 mg/dL Normal [facility] Comment on above: Performed By: #### T 7, TSH, LIPID, CMP #### [facility] [address] [place] [address] Dr. Manuel Fair Cholesterol.total/Lucina sterol in HDL [Mass ratio] 4.2 {ratio} Normal [facility] Comment on above: Performed By: #### T 7, TSH, LIPID, CMP #### [facility] [address] [place] [address] Dr. Manuel Fair HDL NORMAL > or = 60 mg/dl - LOW CARDIOVASCULAR RISK <40 mg/dl - HIGH CARDIOVASCULAR RISK Normal [facility] Comment on above: Performed By: #### T 7, TSH, LIPID, CMP #### [facility] [address], [place] [address] Dr. Manuel Fair LDL CALC NORMAL SEE BELOW Normal [facility] Comment on above: Result Comment: <100 mg/dl OPTIMAL 100 - 129 mg/dl NEAR OR ABOVE OPTIMAL 130 - 159 mg/dl BORDERLINE HIGH 160 - 189 mg/dl HIGH >190 mg/dl VERY HIGH Performed By: #### T 7, TSH, LIPID, CMP #### [facility] [address], [place] [address] Dr. Manuel Fair Triglyceride [Mass/Vol] 139 mg/dL Normal <=150 [facility] Comment on above: Performed By: #### T 7, TSH, LIPID, CMP #### [facility] [address] [place] [address] [address] Manuel Fair VLDL CALC 27.8 mg/dL Normal [facility] Comment on above: Performed By: #### T 7, TSH, LIPID, CMP #### [facility] [address] [address] [address] Manuel Fair MG MAMM [place] DIAG W CADon MG MAMM [place] DIAG W CAD Patient: KEYLA KEITH Exam Date: 08/29/2022 : 1980 Gender:F Ordering : PRERNA SOUSA . Admission #: [id number] Family : DR JESSIE HOPE . Order #: [id number] CLICK HERE TO VIEW EXAM RADIOLOGY REPORT [...] Marte M.D. on 08/29/2022 at 10:34 Normal [facility] PROF 14(COMP METB)on 023 Albumin [Mass/Vol] 3.7 g/dL Normal 3.4-5.0 [facility] Comment on above: Performed By: #### T 7, TSH, LIPID, CMP #### [facility] [address] [place] [address] Dr. Manuel Fair Albumin/Globulin [Mass ratio] 1.1 {ratio} Normal [facility] Comment on above: Performed By: #### T 7, TSH, LIPID, CMP #### [facility] [address] [address] [address] Manuel Fair ALP [Catalytic activity/Vol] 73 U/L Normal 46-116 [facility] Comment on above: Performed By: #### T 7, TSH, LIPID, CMP #### [facility] [address] [place] [address] Dr. Manuel Fair ALT [Catalytic activity/Vol] 21 U/L Normal 14-59 [facility] Comment on above: Performed By: #### T 7, TSH, LIPID, CMP #### [facility] [address] [address] [address] Manuel Fair Anion gap [Moles/Vol] 11.1 mmol/L Normal [facility] Comment on above: Performed By: #### T 7, TSH, LIPID, CMP #### [facility] [address] [address] [address] Manuel Fair AST [Catalytic activity/Vol] 15 U/L Normal 15-37 [facility] Comment on above: Performed By: #### T 7, TSH, LIPID, CMP #### [facility] [address] [place] [address] Dr. Manuel Fair Bilirubin [Mass/Vol] 0.4 mg/dL Normal 0.2-1.0 [facility] Comment on above: Performed By: #### T 7, TSH, LIPID, CMP #### [facility] [address] [place] [address] Dr. Manuel Fair Calcium [Mass/Vol] 8.9 mg/dL Normal 8.5-10.1 [facility] Comment on above: Performed By: #### T 7, TSH, LIPID, CMP #### [facility] [address] [place] [address] Dr. Manuel Fair Chloride [Moles/Vol] 103 mmol/L Normal 98-107 [facility] Comment on above: Performed By: #### T 7, TSH, LIPID, CMP #### [facility] [address] [place] [address] Dr. Manuel Fair CO2 [Moles/Vol] 29.8 mmol/L Normal 21.0-32.0 [facility] Comment on above: Performed By: #### T 7, TSH, LIPID, CMP #### [facility] [address] [place] [address] Dr. Manuel Fair Creatinine [Mass/Vol] 0.60 mg/dL Normal 0.55-1.02 [facility] Comment on above: Performed By: #### T 7, TSH, LIPID, CMP #### [facility] [address] [place] [address] Dr. Manuel Fair EGFR-AF FILIPINO >60 Normal >=60 [facility] Comment on above: Performed By: #### T 7, TSH, LIPID, CMP #### [facility] [address] [place] [address] Dr. Manuel Fair EGFR-NON AF FILIPINO >60 Normal >=60 [facility] Comment on above: Performed By: #### T 7, TSH, LIPID, CMP #### [facility] [address] [place] [address] Dr. Manuel Fair Globulin (S) [Mass/Vol] 3.3 g/dL Normal [facility] Comment on above: Performed By: #### T 7, TSH, LIPID, CMP #### [facility] [address] [address] [address] Manuel Fair Glucose [Mass/Vol] 91 mg/dL Normal 74-106 [facility] Comment on above: Performed By: #### T 7, TSH, LIPID, CMP #### [facility] [address] [place] [address] Dr. Manuel Fair Potassium [Moles/Vol] 3.9 mmol/L Normal 3.5-5.1 [facility] Comment on above: Performed By: #### T 7, TSH, LIPID, CMP #### [facility] [address] [place] [address] Dr. Manuel Fair Protein [Mass/Vol] 7.0 g/dL Normal 6.4-8.2 [facility] Comment on above: Performed By: #### T 7, TSH, LIPID, CMP #### [facility] [address] [place] [address] Dr. Mnauel Fair Sodium [Moles/Vol] 140 mmol/L Normal 136-145 [facility] Comment on above: Performed By: #### T 7, TSH, LIPID, CMP #### [facility] [address] [place] [address] Dr. Manuel Fair Urea nitrogen [Mass/Vol] 9.0 mg/dL Normal 7.0-18.0 [facility] Comment on above: Performed By: #### T 7, TSH, LIPID, CMP #### [facility] [address] [place] [address] Dr. Manuel Fair Urea nitrogen/Creatinine [Mass ratio] 15.0 mg/mg Normal [facility] Comment on above: Performed By: #### T 7, TSH, LIPID, CMP #### [facility] [address] [place] [address] Dr. Manuel Fair TSHon 08-29-2022 TSH 2.065 uIU/mL Normal 0.358-3.740 [facility] Comment on above: Performed By: #### T 7, TSH, LIPID, CMP #### [facility] [address] [address] [address] Manuel Fair US BREAST LEFT LIMITEDon US BREAST LEFT LIMITED Patient: KEYLA KEITH Exam Date: 08/29/2022 : 1980 Gender:F Ordering : PRERNA SOUSA . Admission #: [id number] Family : DR JESSIE HOPE . Order #: [id number] CLICK HERE TO VIEW EXAM RADIOLOGY REPORT [...] (COVID-19) RNA WAYNE+probe Ql (Unsp spec) Negative [email or web address] Other COVID/FLU/RSV RT-PCR Positive [facility] Other COVID/FLU/RSV RT-PCR Negative [facility] [employer] Other Covid-19 PCR (CVDTB)on 04-04 SARS-CoV-2 (COVID-19) RNA WAYNE+probe Ql (Unsp spec) Not detected Normal NOT DETECTED [facility] Comment on above: Result Comment: This test is not yet approved or cleared by the [place] FDA. When there are no FDA-approved or cleared tests available, and other criteria are met, FDA can make tests available under an emergency access mechanism called an Emergency Use Authorization (EUA). The EUA for this test is supported by the Business Process Consultant of Health and Human Service's (HHS's) declaration [...] SARS-CoV-2. Performed By: #### C VDTB #### [facility] [address] [place] [address] Dr. Manuel Fair PAP ACOG PANEL 2: 30 to 65on 02-09-2022 . . Normal [facility] Comment on above: Result Comment: Perf ormed at: WB Performed By: #### [id number] #### [facility] [address] [place] [address] Dr. Manuel Fair Age Gdln ACOG Testing 30-65 Normal [facility] Comment on above: Performed By: #### [id number] #### [facility] [address] [place] [address] Dr. Manuel aFir DIAGNOSIS: Comment Normal [facility] Comment on above: Result Comment: NEGA TIVE FOR INTRAEPITHELIAL LESION OR MALIGNANCY. Performed at: WB Performed By: #### [id number] #### [facility] [address] [place] [address] Dr. Manuel Fair HPV Aptima Negative Normal Negative [facility] Comment on above: Result Comment: This nucleic acid amplification test detects fourteen high-risk HPV types (16,18,31,33,35,39,45,51,52,56,58,59,66,68) without differentiation. Performed at: =G Performed By: #### 4 [id number] #### [facility] [address] [place] [address] Dr. Manuel Fair Methodology: Comment Normal [facility] Comment on above: Result Comment: This liquid based ThinPrep(R) pap test was screened with the use of an image guided system. Performed at: WB Performed By: #### [id number] #### [facility] [address] [place] [address] Dr. Manuel Fair Note: Comment Normal [facility] Comment on above: Result Comment: The Pap smear is a screening test designed to aid in the detection of premalignant and malignant conditions of the uterine cervix. It is not a diagnostic procedure and should not be used as the sole means of detecting cervical cancer. Both false-positive and false-negative reports do occur. . Performed at: WB Performed By: #### [id number] #### [facility] [address] [place] [address] Dr. Manuel Fair Performed by: Comment Normal [facility] Comment on above: Result Comment: Michael Armendariz, Joy Loading Machine Operator (ASCP) Performed at: WB Performed By: #### [id number] #### [facility] [address] [place] [address] Dr. Manuel Fair Specimen adequacy: Comment Normal [facility] Comment on above: Result Comment: Sati sfactory for evaluation. No endocervical component is identified. Performed at: WB Performed By: #### [id number] #### [facility] [address] [place] [address] Dr. Manuel Fair MG MAMM SCREEN 3D [place] CADon 01-24-2022 MG MAMM SCREEN 3D [place] CAD Patient: KEYLA KEITH Exam Date: 01/24/2022 : 1980 Gender:F Ordering : DR JESSIE HOPE . Admission #: [id number] Family : DR NESSMEI BALLJames . Order #: [id number] CLICK HERE TO VIEW EXAM RADIOLOGY REPORT [...] M.D. on 01/25/2022 at 13:56 Normal [facility] Vital Signs Date Time Vital Sign Value Performing Clinician Facility 02-01-2025 13:30-0400 Body mass index (BMI) [Ratio] 31.25 kg/m2 Jessie Herminia DO Work Phone: [facility] 02-01-2025 13:30-0400 Body weight 90.49 kg Jessie Herminia DO Work Phone: [facility] 02-01-2025 13:30-0400 Diastolic blood pressure 82 mm[Hg] Jessie Herminia DO Work Phone: [facility] 02-01-2025 13:30-0400 Systolic blood pressure 120 mm[Hg] Jessie Herminia DO Work Phone: [facility] 01-04-2025 13:47-0400 Body mass index (BMI) [Ratio] 31.7 kg/m2 Jessie Herminia DO Work Phone: [facility] 01-04-2025 13:47-0400 Body weight 91.81 kg Jessie Herminia DO Work Phone: [facility] 01-04-2025 13:47-0400 Diastolic blood pressure 80 mm[Hg] Jessie Herminia DO Work Phone: [facility] 01-04-2025 13:47-0400 Systolic blood pressure 122 mm[Hg] Jessie Herminia DO Work Phone: [facility] 11-23-2024 09:31-0400 Body mass index (BMI) [Ratio] 32.11 kg/m2 Jessie Herminia DO Work Phone: [facility] 11-23-2024 09:31-0400 Body weight 92.99 kg Jessie Herminia DO Work Phone: [facility] 11-23-2024 09:31-0400 Diastolic blood pressure 78 mm[Hg] Jsesie Herminia DO Work Phone: [facility] 11-23-2024 09:31-0400 Systolic blood pressure 122 mm[Hg] Jessie Herminia DO Work Phone: [facility] 05-25-2024 11:52-0400 Body height 170.18 cm [facility] 05-25-2024 11:52-0400 Body mass index (BMI) [Ratio] 32.4 kg/m2 [facility] 05-25-2024 11:52-0400 Body temperature 97.5 [degF] [facility] 05-25-2024 11:52-0400 Body weight 93.89 kg [facility] 05-25-2024 11:52-0400 Diastolic blood pressure 83 mm[Hg] [facility] 05-25-2024 11:52-0400 Heart rate 91 /min [facility] 05-25-2024 11:52-0400 Respiratory rate 18 /min [facility] 05-25-2024 11:52-0400 SaO2% (BldA) [Mass fraction] 98 % [facility] 05-25-2024 11:52-0400 Systolic blood pressure 134 mm[Hg] [facility] 07-31-2022 12:15-0500 Body height 167.64 cm Jody Carey Other [email or web address] Other 07-31-2022 12:15-0500 Body mass index (BMI) [Ratio] 32.28 kg/m2 Jody Carey Other [email or web address] Other 07-31-2022 12:15-0500 Body temperature 97.3 [degF] Jody Carey Other [email or web address] Other 07-31-2022 12:15-0500 Body weight 90.72 kg Jody Carey Other [email or web address] Other 07-31-2022 12:15-0500 Respiratory rate 18 /min Jody Carey Other [email or web address] Other 07-31-2022 12:15-0500 SaO2% (BldA) [Mass fraction] 98 % Jody Carey Other [email or web address] Other Encounters Encounter Date Encounter Type Care Provider Facility Start: 03-02-2025 End: 03-02-2025 Clinisync Result Encounter Jessie Herminia DO Work Phone: [facility] Unsolicited Start: 03-02-2025 End: 03-02-2025 Clinisync Result Encounter Jessie Herminia DO Work Phone: [facility] Unsolicited Start: 03-02-2025 End: 03-02-2025 ambulatory Jessie Herminia DO Work Phone: [facility] Work Phone: Start: 03-02-2025 End: 03-02-2025 Departed Referred Jessie Herminia -[facility] Start: 02-21-2025 End: 02-21-2025 Clinisync Result Encounter [...] procedure Jessie Herminia DO Work Phone: [facility] Comment on above: Pre-op examination; Dysmenorrhea; Menorrhagia with regular cycle; Dyspareunia in female; Pelvic pain Start: 02-01-2025 End: 02-01-2025 Preprocedural examination done Jessie Herminia DO Work Phone: [facility] Start: 02-01-2025 End: 02-01-2025 Departed Referred Jessie Herminia -[facility] Start: 02-01-2025 End: 02-01-2025 ambulatory JESSIE [facility] Work Phone: Start: 01-04-2025 End: 01-04-2025 Bamboo [...] Not Available Start: 05-25-2024 End: 05-25-2024 ambulatory [facility] Work Phone: Start: 05-25-2024 End: 05-25-2024 Patient encounter procedure [facility] Work Phone: Start: 08-30-2022 Encounter for genera l adult medical examination without abnormal findings DR BENNETT DUQUE . [facility] Start: 08-29-2022 End: 08-30-[address] HARVEY MARTE Facility:[facility] Start: 08-29-2022 End: 08-30-2022 Encounter for general adult medical examination without abnormal findings DR BENNETT DUQUE . Facility:[facility] Start: 07-31-2022 End: 07-31-2022 ambulatory Jody Carey Other [email or web address] Other Start: 07-31-2022 Office outpatient ne w 30 minutes Jody Carey [facility] Start: 04-22-2022 End: 04-22-[address] BENNETT DUQUE . Facility:[facility] Start: 02-05-2022 End: 02-05-[address] SEBASTIÁN FRIAS . Facility:[facility] Start: 01-24-2022 End: 01-25-[address] JESSIE HOPE . Facility: Procedures Date Procedure Procedure Detail Performing Clinician Start: 03-02-2025 ECG 12-LEAD Jessie Fazi o DO Work Phone: Start: 03-02-2025 ALL CBC WITH AUTO DIFF Jessie Herminia DO Work Phone: Start: 02-21-2025 XR CHEST 2V Jessie Fazi o DO Work Phone: Start: 02-10-2025 MM TOMOSYNTHESIS SCR EENING BI Jessie Herminia DO Work Phone: Start: 02-01-2025 Urine test visual color cmprsn meths Jessie Herminia DO Work Phone: Start: 02-01-2025 PATHOLOGY REQUEST FO R [facility] Jessie Herminia DO Work Phone: Start: 01-04-2025 IGP,APTIMA HPV,AGE [...] Start: 01-18-2026 End: 01-18-2026 Patient encounter procedure [facility] Start: 04-13-2025 End: 04-13-2025 Patient encounter procedure [facility] Start: 03-09-2025 End: 03-09-2025 Patient encounter procedure [facility] Start: 02-01-2025 End: 02-01-2025 Patient encounter procedure 02/01/2025 1:30 PM EDT Procedure Visit [facility] [address] [place] [address] HerminiaFlower saxenay, DO [address] [place] [address] [facility] Start: 02-01-2025 [facility] Start: 01-04-2025 End: 03-06-2026 MG Breast - bilateral Screening Bilateral screening mammogram Imaging Routine Well woman exam with routine gynecological exam Encounter for screening mammogram for malignant neoplasm of breast Expected: 01/04/2025 (Approximate), Expires: 03/06/2026 [facility] Work Phone: Comment on above: Expected: 01/04/2025 (Approximate), Expires: 03/06/2026 Start: 01-04-2025 End: 01-04-2025 Patient encounter procedure [facility] Comment on above: Arrived Start: 11-23-2024 End: 11-23-2025 aPTT in Blood by Coagulation assay APTT Lab Routine Menorrhagia with regular cycle Expected: 11/23/2024 (Approximate), Expires: 11/23/2025 [facility] Comment on above: Expected: 11/23/2024 (Approximate), Expires: 11/23/2025 Start: 11-23-2024 End: 11-23-2025 US Pelvis US Pelvis w/ TV Imaging Routine Menorrhagia with irregular cycle Menorrhagia with regular cycle Expected: 11/23/2024, Expires: 11/23/2025 [facility] Comment on above: Expected: 11/23/2024 , Expires: 11/23/2025 Start: 11-23-2024 End: 11-23-2024 Patient encounter procedure 11/23/2024 9:30 AM EDT Office Visit [facility] [address] [place] [place] [id number] Jessie Hope, [address] [place] [address] Arrived [facility] Comment on above: Arrived Biopsy endometrium Biopsy endome trium Procedures Routine Pre-op examination Dysmenorrhea Menorrhagia with regular cycle Dyspareunia in female Pelvic pain Ordered: 02/01/2025 [facility] Work Phone: Comment on above: Ordered: 02/01/2025 CBC W Auto Different ial panel - Blood CBC and differential Lab Routine Menorrhagia with regular cycle Ordered: 11/23/2024 [facility] Work Phone: Comment on above: Ordered: 11/23/2024 hCG, quantitative, hCG, quantitative, Lab Routine Menorrhagia with regular cycle Ordered: 11/23/2024 [facility] Comment on above: Ordered: 11/23/2024 Hemoglobin A1c/Hemoglobin.total in Blood Hemoglobin A1c Lab Routine Menorrhagia with regular cycle Ordered: 11/23/2024 [facility] Comment on above: Ordered: 11/23/2024 Prothrombin time (PT ) in Blood by Coagulation assay Protime-INR Lab Routine Menorrhagia with regular cycle Ordered: 11/23/2024 [facility] Comment on above: Ordered: 11/23/2024 THIN PREP TIS PAP AN D HR HPV DNA THIN PREP TIS PAP AND HR HPV DNA Pathology and Cytology Routine Well woman exam with routine gynecological exam Ordered: 01/04/2025 [facility] Comment on above: Ordered: 01/04/2025 Thyrotropin [Units/volume] in Serum or Plasma TSH Lab Routine Menorrhagia with regular cycle Ordered: 11/23/2024 [facility] Comment on above: Ordered: 11/23/2024 Thyroxine (T4) free [Mass/volume] in Serum or Plasma T4, free Lab Routine Menorrhagia with regular cycle Ordered: 11/23/2024 [facility] Comment on above: Ordered: 11/23/2024 Payers Date Payer Category Payer Self-pay 2021 [facility] [employer] [id number] 1980 Unknown [id number] 1980 Unknown [id number] .593 1980 Unknown [id number] .593 1980 Unknown [id number] .593 1980 Unknown [id number] .593 1980 Unknown [id number] [id number] .1259 1980 Unknown [id number] .1259 1980 Unknown [id number] .1259 1958 [facility] OLAMIDE [id number] 1958 Unknown [id number] Unknown [id number] .531 Social History Date Type Detail Facility Start: 03-24-2023 End: 11-23-2024 Sex Assigned At [facility] Other Start: 07-31-2022 Tobacco smoking stat us NHIS Smoker (finding) [facility] Start: 1980 Sex Assigned At Female F [facility] Start: 07-31-2022 End: 02-06-2023 Tobacco smoking [...] gender (finding) [facility] Sex Female (finding) [facility] History of Present illness Narrative 02-01-2025 [...] on 03-02-[address] Hope at [facility]. MEDICATIONS Current Outpatient Medications Medication Instructions albuterol [...] nursing note reviewed. Exam conducted with a jewelry sorter present. Vitals: Estimated body mass index is [...] on 03-02-[address] Hope at [facility]. EMBX: Patient was placed in dorsal lithotomy [...] PAP SMEAR 02/05/2022 negative TUBAL LIGATION Bilateral 2015 REVIEW OF SYSTEMS Review of Systems: Review [...] nursing note reviewed. Exam conducted with a jewelry sorter present. Vitals: Estimated body mass index is [...] nursing note reviewed. Exam conducted with a jewelry sorter present. Vitals: Estimated body mass index is [...] Jessie Hope DO documented in this encounter [facility] Evaluation note 07-31-2022 Note Date & [...] treatment plan. Patient left in stable condition [email or web address] Other Evaluation note Note Date & Type Note Facility Evaluation note No assessment information availa ble [facility] Work Phone: Evaluation note Note Date & Type Note Facility Evaluation note Diagnosis Menorrhagia with irregular cycle Spotting Other specified noninflammatory disorder of vagina Hormone imbalance Menorrhagia with regular cycle documented in this encounter [facility] Evaluation note Note Date & Type Note Facility Evaluation note Diagnosis Well woman exam with routine gynecological exam Routine gynecological examination Hormone imbalance Encounter for screening mammogram for malignant neoplasm of breast documented in this encounter [facility] Evaluation note Note Date & Type Note Facility Evaluation note Diagnosis Pre-op examination Dysmenorrhea Menorrhagia with regular cycle Dyspareunia in female Pelvic pain documented in this encounter [facility] History general Narrative - Reported Note Date & Type Note Facility History general Narrative - Reported Type Surgical History C section Hospitalization History see above [email or web address] Other Reason for referral (narrative) Note Date & Type Note Facility Reason for referral (narrative) No reason for referral information available [facility] Work Phone: Summary Purpose Family History No Family History Records FoundNo Family History Records FoundNo Family History Records Found Advance Directives Advance Directive Response Recorded Date/ Time Advance Directives No May 25, 2024 11:11am Chief Complaint and Reason for Visit Chief Complaint headache cough conge stion Chief Complaint Admit Date Unknown February 01, 2025 1:27p m Chief Complaint Admit Date Unknown February 01, 2025 1:27p m Unknown March 02, 2025 10:1 5am Additional Source Comments REASON FOR VISIT (unrecogniz [...] DATE CREATED AUTHOR AUTHOR'S ORGANIZ ATION 02/03/2025 [facility] EPIC DATE CREATED AUTHOR AUTHOR'S ORGANIZ ATION 02/13/2025 [facility] Care Teams (unrecognized sec tion and content) Team Status: Active Member Role Status Dates Bennett Duque MD Primary Care Provider Active Team Status: Inactive Member Role Status Dates Bennett Duque MD Primary Care Provider Active Start: May 25, 2024 End: May 25, 2024 Jody Carey APRN Attending Provider Active Start: May 25, 2024 End: May 25, 2024 [employer] Relationship Specialty Start Date End Date Bennett Duque MD [address] [place] [address] PCP - General Family Medicine 02/10/23 [employer] Relationship Specialty Start Date End Date Bennett Duque MD [address] [place] [address] PCP - General Family Medicine 02/10/23 [employer] Relationship Specialty Start Date End Date Bennett Duque MD [address] [facility] [place] [address] PCP - General Family Medicine 02/10/23 [employer]er Relationship Specialty Start Date End Date Bennett Duque MD PCP - General Family Medicine 02/10/23 [employer] Relationship Specialty Start Date End Date Bennett Duque MD [address] [place] [address] PCP - General Family Medicine 02/10/23 [employer]er Relationship Specialty Start Date End Date Bennett Duque MD [address] [place] [address] PCP - General Family Medicine 02/10/23 Team Status: Inactive Member Role Status Dates Jessie Hope DO Attending Provider Active Start : February 01, 2025 End: February 01, 2025 [employer] Relationship Specialty Start Date End Date Bennett Duque MD [address] [place] [id number] PCP - General Family Medicine 02/10/23 Team Status: Inactive Member Role Status Dates Jessie Hope DO Attending Provider Active Start : March 02, 2025 End: March 02, 2025 Goals (unrecognized section and content) Goals may [...] BE BASED ON THE PRIMARY CLINICAL RECORDS. [facility]. provides no warranty or guarantee of the accuracy or completeness of information in this document.
[2025-03-03 07:10] LABS: Hematocrit 33.7 % (36.0-48.0); Hemoglobin 11.4 g/dL (12.0-16.0); Immature Granulocytes Abs Auto 0.03 10^3/uL (0.00-0.03); Immature Granulocytes Pct Auto 0.3 % (0.0-0.5); Lymphocytes Absolute Auto 2.7 10^3/uL (1.2-3.8); Mean Corpuscular HGB Conc 33.8 g/dL (29.9-35.2); Mean Corpuscular Hemoglobin 33.9 pg (26.7-34.0); Mean Corpuscular Volume 100.3 fL (81.0-99.0); Platelet Count 209 10^3/uL (150-450); Red Blood Count 3.36 10^6/uL (4.20-5.40); White Blood Count 10.6 10^3/uL (4.0-11.0)
[2025-03-03 08:00] VITALS: BP 128/78; PULSE 79; TEMP 36.6; O2SAT 95
[2025-03-03] MEDS: MAGNESIUM HYDROXIDE 2,400 MG/10 ML ORAL.SUSP 2400 MG PO (08:08)
[2025-03-03] MEDS: ENOXAPARIN SODIUM 40 MG/0.4 ML SYRINGE SUBQ (08:08)
--- NOTE | 2025-03-03 08:39 | PC.NURSE ---
Dr. Hope called to check in on patient. Update provided to Dr. Hope regarding pain control, urine output, and overall patient status including the dressing. Dr. Hope said that patient can be discharged once she starts passing gas and scripts were sent to pharmacy. Patient updated on plan of care.
== END 2025-03-03 10:14 | disposition home or self-care (01) | DRG 743 ==
LOC: SURGOUT 08:08 → MS 03-03 06:34
PROVIDERS: Admitting Provider Obstetrics & Gynecology; PCP Family Medicine; Visit Provider Obstetrics & Gynecology
PROC: 0UT90ZZ Resection of Uterus, Open Approach (ICD-10-PCS; principal; 2025-03-02 07:30)
DX: N92.0 Excessive and frequent menstruation with regular cycle (principal); N94.10 Unspecified dyspareunia; N94.6 Dysmenorrhea, unspecified; R10.2 Pelvic and perineal pain; F17.210 Nicotine dependence, cigarettes, uncomplicated; Z98.51 Tubal ligation status; K21.9 Gastro-esophageal reflux disease without esophagitis; Z86.16 Personal history of COVID-19; F41.9 Anxiety disorder, unspecified
CPT/HCPCS: 36415; 64488; 84702; 85025; 88307; 93005; 94667; 94668; J0131; J0665; J0690; J1100; J1171; J1650; J1885; J2175; J2250; J2405; J2704; J3010; J3490